=== PATIENT | female | born 1965 | race Caucasian/White ===

== ENCOUNTER 2020-11-27 13:19 | Outpatient (CLI) | payer MEDICARE, SELFPAY ==
[2020-11-27 13:37] LABS: Add Urine Microscopic? NO; Appearance Urine Clear (Clear); Bilirubin Urine Negative (Negative); Blood Urine Negative (Negative); Color Urine Yellow (Yellow); Glucose Urine UA Negative (Negative); Ketones Urine Negative (Negative); Leukocyte Esterase Ur Negative LEU/UL (Negative); Nitrate Urine Negative (Negative); Protein Urine Negative (Negative); Urobilinogen Urine 0.2 mg/dL (0.2-1.0)
== END 2020-11-27 13:20 | disposition home or self-care (01) ==
LOC: CHSLAB 13:25
DX: N39.0 Urinary tract infection, site not specified (principal)
CPT/HCPCS: 81003

== ENCOUNTER 2021-04-10 15:53 | Outpatient (RCR) | payer MEDICARE, OTHER, SELFPAY ==
--- NOTE | 2021-04-10 17:00 | PTOPEVAL ---
Thank you for referring Garima Perry to [facility].? The patient is scheduled to be seen for therapy? ____x/week for ___ weeks. Please review, sign, date and return this plan of care RADHA. I agree with and certify that the following plan of care is medically necessary. Referring Physician Date Admitting Provider: Attending Provider: Olesya Pryor, DI[facility] [employer] DRILLER-DANA Referring Provider: *PT Outpatient Evaluation Start: 04/10/21 16:10 Freq: Status: Active Protocol: Document 04/10/21 16:10 [facility] (Rec: 04/10/21 16:59 [facility] [id number]) Therapy Assessment Status Assessment Status Assessment Status Evaluation Evaluation Information Problem Diagnosis LBP Onset 02/20/21 Additional Evaluation Detail oswestry = 78% functional deficits Subjective Information patient reports she has been Query Text:As Reported By Patient/ having pain in the lower back Family for about 5 years. she reports she had pain management begin about 3 years ago. she reports she had been having increased weakness in the feet /ankles. she reports has been told she has quite a bit of nerve damage in her legs. she reports she has tried PT in the past. she reports she has pain mostly down the L LE, but also in the R LE. she reports she has been told she has DDD of the spine. she reports she has increased pain with walking, standing, sleeping, and lifting. she reports she has had falls in the past. Prior Level of Function Comments Additional Prior Level of Function patient has been battling back Comments issues, LE radiculiopathy for years. she reports history of TIA's. she reports 6 months ago she was able to stand for more than 1 hour, walk longer than 1 mile, and do her own shopping in stores. Pain Assessment Timing of Pain Assessment Timing of Pain Assessment Assessment Pain Scale Pain Scale Used Numeric (1 - 10) Self Report Pain Assessment Lower Back Reported Pain Level 8 Pain Description Sharp,Tingling Pain Radiation Left Leg,Right Leg Greatest Pain Intensity
--- NOTE | 2021-05-27 16:09 | PCPTNOTE ---
patient has not been to therapy in over a month. as of this date, she will be dc'd from skilled PT services and all progress towards goals will be taken from her most recent evaluation/note. HUMBERTO
== END 2021-04-10 16:00 | disposition home or self-care (01) ==
LOC: CHSPT 15:53
PROVIDERS: Visit Provider Nurse Practitioner Adult Health
DX: M54.5 Low back pain (principal)
CPT/HCPCS: 97014; 97110; 97161; G0283

== ENCOUNTER 2021-06-25 09:57 | Outpatient (CLI) | payer MEDICARE, SELFPAY ==
[2021-06-25 13:28] LABS: Add Urine Microscopic? YES; Appearance Urine Clear (Clear); Bilirubin Urine Negative (Negative); Blood Urine Negative (Negative); Color Urine Yellow (Yellow); Glucose Urine UA Negative (Negative); Ketones Urine Trace (Negative); Leukocyte Esterase Ur 1+ LEU/UL (Negative); Nitrate Urine Negative (Negative); Protein Urine Negative (Negative); Urobilinogen Urine 0.2 mg/dL (0.2-1.0); pH Urine 6.5 (5.0-8.0)
[2021-06-25 13:36] LABS: SARS-CoV-2 Ag Negative (Negative)
[2021-06-25 13:38] LABS: Bacteria Urine Trace /hpf; RBC Urine 0-2 /hpf (0-2); Squamous Epithelial Cell Urine Rare /hpf (Few)
== END 2021-06-25 09:58 | disposition home or self-care (01) ==
PROVIDERS: PCP Internal Medicine
DX: N39.0 Urinary tract infection, site not specified (principal); Z20.822 Contact with and (suspected) exposure to COVID-19
CPT/HCPCS: 81001; 87086; 87088; 87426; C9803

== ENCOUNTER 2021-12-23 10:35 | Emergency (ER) | payer OTHER, SELFPAY ==
--- NOTE | ~2021-12-23 | CT_ITS ---
EXAMINATION: CT brain wo con DATE: 12/23/2021 11:09 INDICATION: Left-sided headache with dizziness TECHNIQUE: Computed tomography (CT) of the head was performed without intravenous contrast. Sagittal and coronal reconstructions were performed. The mA was adjusted according to patient size. Iterative reconstruction technique was employed. The dose-length product was 605.33 mGy-cm. COMPARISON: head CT dated 11/30/2007 FINDINGS: No acute intracranial hemorrhage, acute infarction or abnormal extra axial fluid collection. Ventricl es are normal and symmetric. No mass/mass effect. The orbits, paranasal sinuses and mastoid air cells are normal. Corticated heterotopic ossicle at the right frontal scalp. Mild hyperostosis frontalis. IMPRESSION: 1. Normal brain. No acute intracranial process. Reviewed, dictated and finalized at location B.
[2021-12-23 10:35] VITALS: BP 106/60; PULSE 78; RESP 16; TEMP 36.4; O2SAT 100
--- NOTE | 2021-12-23 10:43 | ED.HA ---
HPI - Headache General Chief Complaint: Headache Stated Complaint: ambulance Time Seen by Provider: 12/23/21 10:43 Source: patient History of Present Illness HPI Narrative: 6 with history of hypertension, diabetes mellitus asthma, fibromyalgia, migraine headache, anxiety / depression, Neuropathy with decreased sensation left lower extremity presented to the ER with -- 3 day history of migraine headaches. This is similar to her usual headache which started gradually. Headache is associated with nausea without vomiting. No photophobia /phonophobia. -- Visual hallucinations this started many months ago. For the past few weeks she has been having auditory hallucinations. She has been seen by a psychiatric history and started Seroquel. She had a recent dose increase of Seroquel to 200 mg daily for better control of hallucinations. Today the patient was evicted from her residence. MD elicited complaint: headache and migraine Pertinent past history: migraines Onset (ago): day(s) ( Started 3 days ago) Onset description: gradually Location: left and parietal Severity: moderate Quality & Timing: aching Exacerbating factors: none Relieving factors: nothing Context: occurred at rest Associated symptoms: nausea Treatments prior to arrival: none Related Data Home Medications Medication Instructions Recorded Confirmed Fish Oil 1,200 mg DAILY 12/23/21 12/23/21 amlodipine 50 mg DAILY 12/23/21 12/23/21 aspirin 81 mg DAILY 12/23/21 12/23/21 atorvastatin 20 mg 12/23/21 12/23/21 bupropion HCl 150 mg PO BID 12/23/21 12/23/21 cyclobenzaprine 10 mg TID 12/23/21 12/23/21 duloxetine 120 mg PO DAILY 12/23/21 12/23/21 famotidine 20 mg BID 12/23/21 12/23/21 hydroxyzine pamoate 50 mg TID 12/23/21 12/23/21 icosapent ethyl [Vascepa] 1 g PO BID 12/23/21 12/23/21 metformin 500 mg BID 12/23/21 12/23/21 nystatin 4 ml QID 12/23/21 12/23/21 omeprazole 20 mg DAILY 12/23/21 12/23/21 potassium citrate 30 meq PO BID 12/23/21 12/23/21 prazosin 3 mg HS 12/23/21 12/23/21 propranolol 80 mg PO DAILY 12/23/21 12/23/21 ropinirole 1 mg BID 12/23/21 12/23/21 Allergies Allergy/AdvReac Type Severity Reaction Status Date / Time cephalexin [Keflex] Allergy Intermediate Unknown Verified 12/23/21 11:07 Penicillins Allergy Intermediate Unknown Verified 12/23/21 11:07 Cephalosporins Allergy Mild Unknown Verified 12/23/21 11:07 pregabalin [From Lyrica] Allergy Unknown Verified 12/23/21 11:07 TAPE Allergy Mild Unknown Uncoded 12/23/21 11:07 Review of Systems Review of Systems: All systems reviewed & are unremarkable except as noted in HPI and below Constitutional: Constitutional: Reports as per HPI and Reports no additional constitutional complaints Eyes: Eyes: Reports as per HPI and Reports no additional eye complaints ENT: Reports system reviewed and no additional complaints, except as documented Cardiovascular: Cardiovascular: Reports as per HPI and Reports no additional cardiovascular complaints Respiratory: Respiratory: Reports as per HPI and Reports no additional respiratory complaints Gastrointestinal: Gastrointestinal: Reports as per HPI, Reports no additional gastrointestinal complaints and Reports nausea Genitourinary: Genitourinary: Reports no additional female genitourinary complaints Musculoskeletal: Musculoskeletal: Reports no additional musculoskeletal complaints and Reports as per HPI Integumentary/Breasts: Skin/Breast: Reports system reviewed and no additional complaints, except as docu and Reports as per HPI Neurologic: Reports system reviewed and no additional complaints, except as documented, Reports as per HPI and Reports headache(s) Psychiatric: Psychiatric: Reports anxiety and Reports depression Comments: currently having auditory hallucinations for which she is on Seroquel. Patient denies suicidal or homicidal ideations. Endocrine: Endocrine: Reports no additional endocrine complaints and Reports as per HPI Hematologic/Lymphatic:
[2021-12-23 10:50] LABS: Glucose Point of Care 158 mg/dl (65-105)
[2021-12-23 11:20] LABS: Basophils Absolute Auto 0.06 K/mm3 (0.00-0.10); Basophils Percent Auto 0.9 % (0.0-1.0); Eosinophils Absolute Auto 0.15 K/mm3 (0.02-0.50); Eosinophils Percent Auto 2.2 % (1.0-6.0); Hematocrit 40.4 % (35.0-49.0); Hemoglobin 13.4 g/dL (12.0-15.0); Immature Granulocyte Absolute 0.01 K/mm3 (0.00-0.00); Immature Granulocyte Percent A 0.1 % (0.0-0.0); Lymphocytes Absolute Auto 2.75 K/mm3 (1.10-4.50); Lymphocytes Percent Auto 41.2 % (18.0-42.0); Mean Corpuscular HGB Conc 33.2 g/dL (32.0-36.0); Mean Corpuscular Hemoglobin 30.2 pg (27.0-31.0); Mean Platelet Volume 9.3 fl (9.2-11.8); Monocytes Absolute Auto 0.52 K/mm3 (0.10-0.90); Monocytes Percent Auto 7.8 % (2.0-11.0); Neutrophils Absolute Auto 3.2 K/mm3 (1.7-7.2); Neutrophils Percent Auto 47.8 % (50.0-70.0); Platelet Count Result 279 K/mm3 (150-420); Red Blood Count 4.44 M/mm3 (4.20-5.40); Red Cell Distribution Width 11.4 % (11.6-14.4); White Blood Count 6.7 K/mm3 (4.8-10.8)
[2021-12-23 11:27] LABS: Appearance Urine Clear (Clear); Bilirubin Urine Negative (Negative); Color Urine Light Yellow (Yellow); Glucose Urine UA Negative (Negative); Ketones Urine Negative (Negative); Leukocyte Esterase Ur 2+ (Negative); Nitrate Urine Negative (Negative); Protein Urine Negative (Negative); Urobilinogen Urine 0.2 mg/dL (0.2-1.0)
[2021-12-23 11:32] LABS: Add Urine Microscopic? YES; Blood Urine Trace-Intact (Negative); RBC Urine 0-2 /hpf (0-2); Squamous Epithelial Cell Urine Few /hpf (Few)
[2021-12-23 11:33] LABS: Bacteria Urine Trace /hpf
[2021-12-23] MEDS: KETOROLAC 30 MG/ML VIAL (*BKC) IM (11:36)
[2021-12-23] MEDS: PROCHLORPERAZINE EDISYLATE 10 MG/2 ML VIAL IM (11:39)
[2021-12-23 11:45] LABS: Alanine Aminotransferase 32 U/L (14-59); Albumin Level 3.8 g/dL (3.4-5.0); Alkaline Phosphatase 67 U/L (46-116); Anion Gap 8 mmol/L (8-16); Aspartate Amino Transferase 16 U/L (15-37); Bilirubin,Total 0.2 mg/dL (0.00-1.00); Blood Urea Nitrogen 13 mg/dL (7-18); Calcium 9.2 mg/dL (8.5-10.1); Carbon Dioxide 31 mmol/L (21-32); Chloride 99 mmol/L (98-108); Estimated Glomerular Filt Rate 59; Glucose 132 mg/dL (70-99); Osmolality Calculated 288 mOsm/kg (285-295); Potassium 3.8 mmol/L (3.5-5.1); Sodium 138 mmol/L (136-145); Total Protein 7.2 g/dL (6.4-8.2)
--- NOTE | 2021-12-23 11:50 | ECG_ITS ---
Measurements Intervals [place] Rate: 71 P: 58 DC: 181 QRS: 80 QRSD: 100 T: 56 QT: 431 QTc: 471 Interpretive Statements SINUS RHYTHM NONSPECIFIC T-WAVE ABNORMALITY NO PREVIOUS ECG AVAILABLE FOR COMPARISON Electronically Signed On 12-24-2021 14:18:47 CDT by Edith Lehman M.D.
[2021-12-23 11:51] LABS: Thyroid Stimulating Hormone 1.88 uIU/mL (0.36-3.74)
[2021-12-23 11:58] LABS: Amphetamine Screen Urine Negative (Negative); Barbiturate Screen Urine Negative (Negative); Benzodiazepines Screen Urine Negative (Negative); Cannabinoid Screen Urine Negative (Negative); Cocaine Screen Urine Negative (Negative); Methadone Screen Urine Negative (Negative); Opiate Screen Urine Negative (Negative)
[2021-12-23 12:08] LABS: Acetaminophen < 2 ug/mL (10-30); Ethanol 4 mg/dL (0-6); Salicylate 0.7 mg/dL (2.8-20.0)
[2021-12-23 12:30] VITALS: BP 113/64; PULSE 69; RESP 16; TEMP 36.4; O2SAT 98
[2021-12-23 13:12] LABS: SARS-CoV-2 Ag Negative (Negative)
[2021-12-23 13:38] VITALS: BP 118/62; PULSE 68; RESP 16; TEMP 36.5; O2SAT 98
--- NOTE | 2021-12-23 13:45 | PC.NURSE ---
this patient states she is going home now. states her son at bedside is her only ride and he needs to leave to go back to work. erp speaking with pt.
== END 2021-12-23 13:47 | disposition home or self-care (01) ==
PROVIDERS: Emergency Provider Internal Medicine Critical Care Medicine; PCP Internal Medicine
DX: G43.009 Migraine without aura, not intractable, without status migrainosus (principal); N30.00 Acute cystitis without hematuria; Z20.822 Contact with and (suspected) exposure to COVID-19; E11.9 Type 2 diabetes mellitus without complications; E78.5 Hyperlipidemia, unspecified; I10 Essential (primary) hypertension; Z79.899 Other long term (current) drug therapy
CPT/HCPCS: 36415; 70450; 80053; 80307; 81001; 82948; 84443; 85025; 87426; 93005; 96372; 99284; A9270; C9803; J0780; J1885

== ENCOUNTER 2022-02-02 10:13 | Emergency (ER) | payer OTHER, SELFPAY ==
--- NOTE | ~2022-02-02 | XR_ITS ---
XR chest 1V portable DATE: 02/02/2022 10:55 INDICATION: Chest pain and tightness TECHNIQUE: Portable AP chest on 02/02/2022 at 1037 hours COMPARISON: 01/04/2008 PA and lateral chest FINDINGS: Heart size is normal. Is mild aortic tortuosity. No hilar or mediastinal enlargement. The lungs are clear of infiltrate or consolidation. No pleural effusion or pulmonary vascular congest ion or pneumothorax. Levoscoliosis of the thoracic spine. Osteopenia. IMPRESSION: No active cardiopulmonary disease Reviewed, dictated and finalized at location A.
[2022-02-02 10:21] VITALS: BP 133/92; PULSE 79; RESP 16; TEMP 36.2; O2SAT 98
--- NOTE | 2022-02-02 10:26 | ECG_ITS ---
Measurements Intervals [place] Rate: 77 P: 25 UT: 156 QRS: 49 QRSD: 90 T: 29 QT: 389 QTc: 441 Interpretive Statements SINUS RHYTHM BORDERLINE ST-T WAVE ABNORMALITY- DIFFUSE LEADS BASELINE ARTIFACT- III, AVL, V2 BORDERLINE ECG Electronically Signed On 02-02-2022 13:35:18 CDT by Kilo Salvador D.O.
[2022-02-02] MEDS: IBUPROFEN 400 MG TABLET 800 MG PO (10:44)
[2022-02-02 10:46] LABS: Basophils Absolute Auto 0.05 K/mm3 (0.00-0.10); Basophils Percent Auto 0.5 % (0.0-1.0); Eosinophils Absolute Auto 0.07 K/mm3 (0.02-0.50); Eosinophils Percent Auto 0.7 % (1.0-6.0); Hematocrit 41.2 % (35.0-49.0); Hemoglobin 13.7 g/dL (12.0-15.0); Immature Granulocyte Absolute 0.04 K/mm3 (0.00-0.00); Immature Granulocyte Percent A 0.4 % (0.0-0.0); Lymphocytes Absolute Auto 2.31 K/mm3 (1.10-4.50); Lymphocytes Percent Auto 24.1 % (18.0-42.0); Mean Corpuscular HGB Conc 33.3 g/dL (32.0-36.0); Mean Corpuscular Hemoglobin 30.4 pg (27.0-31.0); Mean Corpuscular Volume 91.6 fL (78.0-102.0); Mean Platelet Volume 10.7 fl (9.2-11.8); Monocytes Absolute Auto 0.57 K/mm3 (0.10-0.90); Monocytes Percent Auto 5.9 % (2.0-11.0); Neutrophils Absolute Auto 6.6 K/mm3 (1.7-7.2); Neutrophils Percent Auto 68.4 % (50.0-70.0); Platelet Count Result 277 K/mm3 (150-420); Red Cell Distribution Width 12.8 % (11.6-14.4); White Blood Count 9.6 K/mm3 (4.8-10.8)
[2022-02-02 10:48] LABS: Add Urine Microscopic? YES; Appearance Urine Clear (Clear); Bilirubin Urine 1+ (Negative); Blood Urine Negative (Negative); Color Urine Yellow (Yellow); Glucose Urine UA Negative (Negative); Ketones Urine 1+ (Negative); Leukocyte Esterase Ur Negative (Negative); Nitrate Urine Negative (Negative); Protein Urine Negative (Negative); Specific Grav Ur 1.015 (1.010-1.020); Urobilinogen Urine 0.2 mg/dL (0.2-1.0); pH Urine 6.5 (5.0-8.0)
[2022-02-02 10:56] LABS: Bacteria Urine 1+ /hpf; RBC Urine 0-2 /hpf (0-2); Squamous Epithelial Cell Urine Few /hpf (Few); WBC Urine 0-3 /hpf (0-3)
[2022-02-02 11:06] LABS: Alanine Aminotransferase 15 U/L (14-59); Albumin Level 4.3 g/dL (3.4-5.0); Alkaline Phosphatase 73 U/L (46-116); Anion Gap 11 mmol/L (8-16); Aspartate Amino Transferase 15 U/L (15-37); Bilirubin,Total 0.8 mg/dL (0.00-1.00); Blood Urea Nitrogen 16 mg/dL (7-18); Calcium 9.3 mg/dL (8.5-10.1); Carbon Dioxide 29 mmol/L (21-32); Chloride 96 mmol/L (98-108); Estimated Glomerular Filt Rate 52; Glucose 143 mg/dL (70-99); Osmolality Calculated 285 mOsm/kg (285-295); Potassium 3.9 mmol/L (3.5-5.1); Sodium 136 mmol/L (136-145); Total Protein 8.2 g/dL (6.4-8.2)
[2022-02-02 11:13] LABS: Troponin I 746.9 ng/L (0.00-60.4)
[2022-02-02] MEDS: SODIUM CHLORIDE 0.9% IV 500 ML 999 ML IV CONT (11:29)
[2022-02-02] MEDS: ONDANSETRON INJ 4 MG/2 ML VIAL IV PUSH (11:30)
[2022-02-02] MEDS: MORPHINE SULFATE (*CRX) 2 MG/ML INJ IV PUSH (11:31)
[2022-02-02] MEDS: NITROGLYCERIN SL 0.4 MG TABLET SUBLINGUAL (11:33)
[2022-02-02 11:42] VITALS: PULSE 83; RESP 12; O2SAT 98
[2022-02-02 11:45] VITALS: PULSE 89; RESP 20; O2SAT 100
[2022-02-02 11:46] VITALS: BP 131/101; PULSE 94; RESP 18; O2SAT 100
[2022-02-02 11:58] LABS: INR 1.1; Prothrombin Time 11.4 Seconds (9.50-12.10)
[2022-02-02] MEDS: HEPARIN SODIUM 5,000 UNITS/ML VIAL 3500 UNITS IV PUSH (12:23)
[2022-02-02] MEDS: HEPARIN SOD/D5W 100 UNITS/ML 25,000 UNITS/250 ML BAG 7 UNITS IV CONT (12:24)
--- NOTE | 2022-02-02 12:32 | ED.BACK ---
HPI - Back Pain/Injury General Chief Complaint: Back Pain/Injury Stated Complaint: ambulance Time Seen by Provider: 02/02/22 10:16 Source: patient, EMS and RN notes reviewed Mode of arrival: EMS Limitations: no limitations History of Present Illness HPI Narrative: back pain radiating to left chest. MD elicited complaint: back pain Pertinent past history: prior back pain Onset (ago): day(s) (1) Timing: constant Severity: mild Pain scale (0-10): 4 Similar Symptoms Previously: Yes Quality: dull and aching Radiation: abdomen and chest Exacerbating factors: none Relieving factors: none Associated symptoms: increased urinary urgency, increased urinary frequency and dysuria Work related injury: No Related Data Home Medications Medication Instructions Recorded Confirmed Fish Oil 1,200 mg DAILY 12/23/21 02/02/22 amlodipine 5 mg tablet 50 mg DAILY 12/23/21 02/02/22 aspirin 81 mg DAILY 12/23/21 02/02/22 atorvastatin 20 mg tablet 20 mg HS 12/23/21 02/02/22 bupropion HCl 150 mg tablet,12 hr 150 mg PO BID 12/23/21 02/02/22 sustained-release cyclobenzaprine 10 mg tablet 10 mg TID 12/23/21 02/02/22 duloxetine 60 mg capsule,delayed 120 mg PO DAILY 12/23/21 02/02/22 release famotidine 20 mg tablet 20 mg BID 12/23/21 02/02/22 hydroxyzine pamoate 50 mg capsule 50 mg TID 12/23/21 02/02/22 icosapent ethyl 1 gram capsule 1 g PO BID 12/23/21 02/02/22 (Vascepa) metformin 500 mg tablet 500 mg BID 12/23/21 02/02/22 nystatin 100,000 unit/mL oral 4 ml QID 12/23/21 02/02/22 suspension omeprazole 20 mg capsule,delayed 20 mg DAILY 12/23/21 02/02/22 release potassium citrate 15 mEq (1,620 30 meq PO BID 12/23/21 02/02/22 mg) tablet,extended release prazosin 1 mg capsule 3 mg HS 12/23/21 02/02/22 propranolol 80 mg capsule,24 80 mg PO DAILY 12/23/21 02/02/22 hr,extended release ropinirole 1 mg tablet 1 mg BID 12/23/21 02/02/22 Allergies Allergy/AdvReac Type Severity Reaction Status Date / Time cephalexin [Keflex] Allergy Intermediate Unknown Verified 02/02/22 10:25 Penicillins Allergy Intermediate Unknown Verified 02/02/22 10:25 Cephalosporins Allergy Mild Unknown Verified 02/02/22 10:25 pregabalin [From Lyrica] Allergy Unknown Verified 02/02/22 10:25 sulfamethoxazole Allergy rash Verified 02/02/22 10:25 [From Bactrim] trimethoprim [From Bactrim] Allergy rash Verified 02/02/22 10:25 TAPE Allergy Mild Unknown Uncoded 02/02/22 10:25 Review of Systems Review of Systems: All systems reviewed & are unremarkable except as noted in HPI and below Constitutional: Constitutional: Reports no additional constitutional complaints Eyes: Eyes: Reports no additional eye complaints ENT: Reports system reviewed and no additional complaints, except as documented Cardiovascular: Cardiovascular: Reports no additional cardiovascular complaints Respiratory: Respiratory: Reports no additional respiratory complaints Gastrointestinal: Gastrointestinal: Reports no additional gastrointestinal complaints Genitourinary: Genitourinary: Reports no additional female genitourinary complaints Musculoskeletal: Musculoskeletal: Reports no additional musculoskeletal complaints Integumentary/Breasts: Skin/Breast: Reports system reviewed and no additional complaints, except as docu Neurologic: Reports system reviewed and no additional complaints, except as documented Psychiatric: Psychiatric: Reports no additional psychiatric complaints Endocrine: Endocrine: Reports no additional endocrine complaints Hematologic/Lymphatic: Hematologic/Lymphatic: Reports no additional hematologic/lymphatic complaints Allergic/Immunologic: Allergic/Immunologic: Reports no additional allergic/immunologic complaints PMFSH Past Medical History Medical History Asthma Diabetes mellitus Dyslipidemia Fibromyalgia Hypertension Non-ST elevated myocardial infarction UTI (urinary tract infection) Family Hi
[2022-02-02 12:52] VITALS: PULSE 89
[2022-02-02] MEDS: METOPROLOL TARTRATE INJ 5 MG/5 ML VIAL 2.5 MG IV PUSH (12:52)
--- NOTE | 2022-02-02 13:08 | PC.NURSE ---
patient originally called ems for chest pain, upon ems arrival ekg and 324 asprin administred, ekg sent to [facility] and declaired not a STEMI. EMS states that after ekg was finished patient denied any chest pain or sob and stated that she called because her back hurt and thought it was dur to her UTI she was recently teated for. upon arrival RN asked patient about chest pain and she denied any chest or sob stating it was her bilateral lower back that hurt and thought it was a UTI. after Troponin results came back and ERP went into room to speak with patient she stated she has chest pain on and off for the past several days that radiates into her back and down her left arm. patient then stated that her chest pain was starting to return. patient was adnimistred nitro and morphine and states the pain was relieved. patient's director of land is dr Mccord at [facility] in [facility]. director of land non destructive testing inspector contacted, patient to be transfered to [facility].
[2022-02-02 13:23] VITALS: BP 146/89; PULSE 81; RESP 15; TEMP 36.4; O2SAT 100
== END 2022-02-02 13:27 | disposition short-term general hospital (02) ==
PROVIDERS: Emergency Provider Emergency Medicine; PCP Internal Medicine
DX: I21.4 Non-ST elevation (NSTEMI) myocardial infarction (principal); N39.0 Urinary tract infection, site not specified
CPT/HCPCS: 36415; 71045; 80053; 81001; 83605; 84484; 85025; 85610; 85730; 93005; 96361; 96365; 96375; 99285; A9270; J1644; J2270; J2405; J7040

== ENCOUNTER 2022-03-10 07:54 | Outpatient (CLI) | payer OTHER, SELFPAY ==
[2022-03-10 08:10] LABS: Basophils Absolute Auto 0.05 K/mm3 (0.00-0.10); Basophils Percent Auto 0.6 % (0.0-1.0); Eosinophils Absolute Auto 0.13 K/mm3 (0.02-0.50); Eosinophils Percent Auto 1.7 % (1.0-6.0); Hematocrit 37.3 % (35.0-49.0); Hemoglobin 12.3 g/dL (12.0-15.0); Immature Granulocyte Absolute 0.03 K/mm3 (0.00-0.00); Immature Granulocyte Percent A 0.4 % (0.0-0.0); Lymphocytes Absolute Auto 2.81 K/mm3 (1.10-4.50); Lymphocytes Percent Auto 36.1 % (18.0-42.0); Mean Corpuscular Hemoglobin 31.2 pg (27.0-31.0); Mean Corpuscular Volume 94.7 fL (78.0-102.0); Mean Platelet Volume 9.6 fl (9.2-11.8); Monocytes Absolute Auto 0.48 K/mm3 (0.10-0.90); Monocytes Percent Auto 6.2 % (2.0-11.0); Neutrophils Absolute Auto 4.3 K/mm3 (1.7-7.2); Platelet Count Result 242 K/mm3 (150-420); Red Blood Count 3.94 M/mm3 (4.20-5.40); Red Cell Distribution Width 13.9 % (11.6-14.4); White Blood Count 7.8 K/mm3 (4.8-10.8)
[2022-03-10 08:23] LABS: Alanine Aminotransferase 25 U/L (14-59); Albumin Level 3.8 g/dL (3.4-5.0); Alkaline Phosphatase 61 U/L (46-116); Anion Gap 7 mmol/L (8-16); Aspartate Amino Transferase 12 U/L (15-37); Bilirubin,Total 0.3 mg/dL (0.00-1.00); Blood Urea Nitrogen 19 mg/dL (7-18); Calcium 9.2 mg/dL (8.5-10.1); Carbon Dioxide 28 mmol/L (21-32); Chloride 103 mmol/L (98-108); Cholesterol 115 mg/dL (0-200); Estimated Glomerular Filt Rate 46; Glucose 151 mg/dL (70-99); HDL Direct 49 mg/dL (40-60); LDL Cholesterol Calculated 32 mg/dL (<130); Osmolality Calculated 291 mOsm/kg (285-295); Potassium 4.9 mmol/L (3.5-5.1); Sodium 138 mmol/L (136-145); Total Protein 7.2 g/dL (6.4-8.2); Triglycerides 169 mg/dL (0-150)
[2022-03-10 08:50] LABS: Hemoglobin A1C 6.4 % (<5.7)
== END 2022-03-10 07:55 | disposition home or self-care (01) ==
LOC: CHSLAB 07:59
PROVIDERS: PCP Internal Medicine
DX: Z79.899 Other long term (current) drug therapy (principal); F33.1 Major depressive disorder, recurrent, moderate
CPT/HCPCS: 36415; 80053; 80061; 83036; 85025

== ENCOUNTER 2022-03-11 21:18 | Emergency (ER) | payer OTHER, SELFPAY ==
--- NOTE | ~2022-03-11 | CT_ITS ---
EXAMINATION: CT brain wo con DATE: 03/11/2022 22:31 INDICATION: occipital PANDYA with dizziness/confusion today . TECHNIQUE: Computed tomography (CT) of the head was performed without intravenous contrast. The mA wa s adjusted according to patient size. Iterative reconstruction technique was employed. The dose-lengt h product was 605.33 mGy-cm. COMPARISON: 12/23/2021. FINDINGS: No acute intracranial hemorrhage or extra-axial fluid collection. No hydrocephalus, mass, or herniation. No acute ischemic infarct. Unremarkable dural venous sinus attenuation. No acute osseous abnormality. The aerated spaces are clear. IMPRESSION: No acute intracranial process. Reviewed, dictated and finalized at location K.
--- NOTE | ~2022-03-11 | XR_ITS ---
EXAMINATION: XR chest 1V portable Exam Date/Time: 03/11/2022 21:48 CDT HISTORY: central chest pain/tightness with weakness Comparison: 02/02/2022. RESULT: Lines, tubes, and devices: None. Lungs and pleura: Clear. Cardiomediastinal silhouette: Stable cardiomediastinal silhouette. Other: No acute osseous or upper abdominal finding. IMPRESSION: No acute cardiopulmonary process. Reviewed, dictated and finalized at location K.
--- NOTE | 2022-03-11 21:26 | ECG_ITS ---
Measurements Intervals [place] Rate: 77 P: 53 [place]: 213 QRS: 68 QRSD: 83 T: 34 QT: 376 QTc: 426 Interpretive Statements SINUS RHYTHM WITH FIRST DEGREE AV BLOCK BASELINE ARTIFACT NONSPECIFIC ST ABNORMALITY BORDERLINE ECG COMPARED TO ECG 02/02/2022 10:46:27 FIRST DEGREE AV BLOCK NOW PRESENT Electronically Signed On 03-12-2022 15:05:44 CDT by Feliberto Cameron M.D.
[2022-03-11 21:28] VITALS: BP 133/81; PULSE 75; RESP 16; TEMP 36.4; O2SAT 98
[2022-03-11] MEDS: ASPIRIN 325 MG ENTERIC TABLET PO (22:09)
[2022-03-11 22:13] LABS: Basophils Absolute Auto 0.05 K/mm3 (0.00-0.10); Basophils Percent Auto 0.5 % (0.0-1.0); Eosinophils Absolute Auto 0.14 K/mm3 (0.02-0.50); Eosinophils Percent Auto 1.4 % (1.0-6.0); Hemoglobin 11.8 g/dL (12.0-15.0); Immature Granulocyte Absolute 0.03 K/mm3 (0.00-0.00); Immature Granulocyte Percent A 0.3 % (0.0-0.0); Lymphocytes Absolute Auto 3.93 K/mm3 (1.10-4.50); Lymphocytes Percent Auto 39.7 % (18.0-42.0); Mean Corpuscular HGB Conc 33.7 g/dL (32.0-36.0); Mean Corpuscular Hemoglobin 31.5 pg (27.0-31.0); Mean Corpuscular Volume 93.3 fL (78.0-102.0); Monocytes Absolute Auto 0.66 K/mm3 (0.10-0.90); Monocytes Percent Auto 6.7 % (2.0-11.0); Neutrophils Absolute Auto 5.1 K/mm3 (1.7-7.2); Neutrophils Percent Auto 51.4 % (50.0-70.0); Platelet Count Result 254 K/mm3 (150-420); Red Blood Count 3.75 M/mm3 (4.20-5.40); Red Cell Distribution Width 13.6 % (11.6-14.4); White Blood Count 9.9 K/mm3 (4.8-10.8)
[2022-03-11 22:28] LABS: Alanine Aminotransferase 25 U/L (14-59); Albumin Level 3.6 g/dL (3.4-5.0); Alkaline Phosphatase 58 U/L (46-116); Anion Gap 6 mmol/L (8-16); Aspartate Amino Transferase 10 U/L (15-37); Bilirubin,Total 0.3 mg/dL (0.00-1.00); Blood Urea Nitrogen 18 mg/dL (7-18); Calcium 9.3 mg/dL (8.5-10.1); Carbon Dioxide 29 mmol/L (21-32); Chloride 101 mmol/L (98-108); Estimated Glomerular Filt Rate > 60; Glucose 114 mg/dL (70-99); Osmolality Calculated 284 mOsm/kg (285-295); Potassium 4.1 mmol/L (3.5-5.1); Sodium 136 mmol/L (136-145); Total Protein 6.9 g/dL (6.4-8.2)
[2022-03-11 22:29] LABS: Add Urine Microscopic? YES; Appearance Urine Clear (Clear); Bilirubin Urine Negative (Negative); Blood Urine Negative (Negative); Color Urine Light Yellow (Yellow); Glucose Urine UA Negative (Negative); Ketones Urine Negative (Negative); Leukocyte Esterase Ur 1+ (Negative); Nitrate Urine Negative (Negative); Protein Urine Negative (Negative); Specific Grav Ur 1.015 (1.010-1.020); Urobilinogen Urine 0.2 mg/dL (0.2-1.0)
[2022-03-11 22:35] LABS: Bacteria Urine Trace /hpf; RBC Urine 0-2 /hpf (0-2); Squamous Epithelial Cell Urine Few /hpf (Few); WBC Urine 0-3 /hpf (0-3)
[2022-03-11] MEDS: NITROGLYCERIN SL 0.4 MG TABLET SUBLINGUAL (22:36)
[2022-03-11] MEDS: ACETAMINOPHEN 325 MG TABLET 650 MG PO (22:36)
[2022-03-11] MEDS: NITROGLYCERIN SL 0.4 MG TABLET 0.8 MG (22:57)
[2022-03-12 00:02] LABS: Troponin I 4.7 ng/L (0.00-60.4)
--- NOTE | 2022-03-12 00:40 | ED.CHESTPAIN ---
HPI - Chest Pain General Chief Complaint: Chest Pain Stated Complaint: AMB Time Seen by Provider: 03/11/22 21:22 Source: patient and RN notes reviewed Limitations: no limitations History of Present Illness MD complaint: chest pain Onset (ago): day(s) (1) Timing of current episode: constant Prior episodes: Yes Onset: during rest Pain location: left chest Severity: mild Pain scale (0-10): 5 Quality: aching and heaviness Relieving factors: nothing Exacerbating factors: exertion Associated symptoms: nausea Treatment prior to arrival: none Related Data Home Medications Medication Instructions Recorded Confirmed Fish Oil 1,200 mg DAILY 12/23/21 03/11/22 amlodipine 5 mg tablet 50 mg DAILY 12/23/21 03/11/22 aspirin 81 mg DAILY 12/23/21 03/11/22 atorvastatin 20 mg tablet 20 mg HS 12/23/21 03/11/22 bupropion HCl 150 mg tablet,12 hr 150 mg PO BID 12/23/21 03/11/22 sustained-release cyclobenzaprine 10 mg tablet 10 mg TID 12/23/21 03/11/22 duloxetine 60 mg capsule,delayed 120 mg PO DAILY 12/23/21 03/11/22 release famotidine 20 mg tablet 20 mg BID 12/23/21 03/11/22 hydroxyzine pamoate 50 mg capsule 50 mg TID 12/23/21 03/11/22 icosapent ethyl 1 gram capsule 1 g PO BID 12/23/21 03/11/22 (Vascepa) metformin 500 mg tablet 500 mg BID 12/23/21 03/11/22 nystatin 100,000 unit/mL oral 4 ml QID 12/23/21 03/11/22 suspension omeprazole 20 mg capsule,delayed 20 mg DAILY 12/23/21 03/11/22 release potassium citrate 15 mEq (1,620 30 meq PO BID 12/23/21 03/11/22 mg) tablet,extended release prazosin 1 mg capsule 3 mg HS 12/23/21 03/11/22 propranolol 80 mg capsule,24 80 mg PO DAILY 12/23/21 03/11/22 hr,extended release ropinirole 1 mg tablet 1 mg BID 12/23/21 03/11/22 Allergies Allergy/AdvReac Type Severity Reaction Status Date / Time cephalexin [Keflex] Allergy Intermediate Unknown Verified 03/11/22 21:32 Penicillins Allergy Intermediate Unknown Verified 03/11/22 21:32 Cephalosporins Allergy Mild Unknown Verified 03/11/22 21:32 pregabalin [From Lyrica] Allergy Unknown Verified 03/11/22 21:32 sulfamethoxazole Allergy rash Verified 03/11/22 21:32 [From Bactrim] trimethoprim [From Bactrim] Allergy rash Verified 03/11/22 21:32 TAPE Allergy Mild Unknown Uncoded 03/11/22 21:32 Review of Systems Review of Systems: All systems reviewed & are unremarkable except as noted in HPI and below Constitutional: Constitutional: Reports no additional constitutional complaints Eyes: Eyes: Reports no additional eye complaints ENT: Reports system reviewed and no additional complaints, except as documented Cardiovascular: Cardiovascular: Reports no additional cardiovascular complaints Comments: chest pain Respiratory: Respiratory: Reports no additional respiratory complaints Gastrointestinal: Gastrointestinal: Reports no additional gastrointestinal complaints Genitourinary: Genitourinary: Reports no additional female genitourinary complaints Musculoskeletal: Musculoskeletal: Reports no additional musculoskeletal complaints Integumentary/Breasts: Skin/Breast: Reports system reviewed and no additional complaints, except as docu Neurologic: Reports system reviewed and no additional complaints, except as documented Psychiatric: Psychiatric: Reports no additional psychiatric complaints Endocrine: Endocrine: Reports no additional endocrine complaints Hematologic/Lymphatic: Hematologic/Lymphatic: Reports no additional hematologic/lymphatic complaints Allergic/Immunologic: Allergic/Immunologic: Reports no additional allergic/immunologic complaints PMFSH Past Medical History Medical History Asthma Chest pain at rest Diabetes mellitus Dyslipidemia Fibromyalgia Hypertension Non-ST elevated myocardial infarction UTI (urinary tract infection) Family History Family History Other Family history of pancreatic cancer
[2022-03-12] MEDS: LORazepam (*CRX) 0.5 MG TABLET 0.25 MG PO (01:00)
[2022-03-12 01:04] VITALS: BP 134/88; PULSE 66; RESP 16; O2SAT 99
== END 2022-03-12 01:05 | disposition home or self-care (01) ==
PROVIDERS: Emergency Provider Emergency Medicine; PCP Internal Medicine
DX: R07.89 Other chest pain (principal); N39.0 Urinary tract infection, site not specified
CPT/HCPCS: 36415; 70450; 71045; 80053; 81001; 84484; 85025; 93005; 96365; 99284; A9270; J0696

== ENCOUNTER 2022-05-09 13:44 | Emergency (ER) | payer OTHER, SELFPAY ==
--- NOTE | 2022-05-09 13:50 | ED.PSYCH ---
HPI - Psych General Chief Complaint: Psychiatric Symptoms Stated Complaint: was wanting to see structural ironworker Time Seen by Provider: 05/09/22 13:49 Source: patient Mode of arrival: ambulatory Limitations: no limitations History of Present Illness HPI Narrative: 56-year-old female with a history of hypertension, fibromyalgia, hypertension, coronary artery disease / non STEMI, migraine, neuropathy with decreased sensation on the left side, anxiety/ depression was brought in to the ER by her son and the direction of the [facility] structural ironworker. The patient is -- delusional. She is wanting to someone who is a and has a . -- she feels she is being controlled by her neighbors. She feels that she is being observed by TV and telephones installed in a house. patient denied any suicidal or homicidal ideation. Onset (ago): day(s) Relieving factors: none Exacerbating factors: none Associated psychiatric symptoms: depression Associated symptoms: denies other symptoms Treatments prior to arrival: none Related Data Home Medications Medication Instructions Recorded Confirmed Fish Oil 1,200 mg DAILY 12/23/21 05/09/22 amlodipine 5 mg tablet 50 mg DAILY 12/23/21 05/09/22 aspirin 81 mg DAILY 12/23/21 05/09/22 atorvastatin 20 mg tablet 20 mg HS 12/23/21 05/09/22 bupropion HCl 150 mg tablet,12 hr 150 mg PO BID 12/23/21 05/09/22 sustained-release cyclobenzaprine 10 mg tablet 10 mg TID 12/23/21 05/09/22 duloxetine 60 mg capsule,delayed 120 mg PO DAILY 12/23/21 05/09/22 release famotidine 20 mg tablet 20 mg BID 12/23/21 05/09/22 hydroxyzine pamoate 50 mg capsule 50 mg TID 12/23/21 05/09/22 icosapent ethyl 1 gram capsule 1 g PO BID 12/23/21 05/09/22 (Vascepa) metformin 500 mg tablet 500 mg BID 12/23/21 05/09/22 nystatin 100,000 unit/mL oral 4 ml QID 12/23/21 05/09/22 suspension omeprazole 20 mg capsule,delayed 20 mg DAILY 12/23/21 05/09/22 release potassium citrate 15 mEq (1,620 30 meq PO BID 12/23/21 05/09/22 mg) tablet,extended release prazosin 1 mg capsule 3 mg HS 12/23/21 05/09/22 propranolol 80 mg capsule,24 80 mg PO DAILY 12/23/21 05/09/22 hr,extended release ropinirole 1 mg tablet 1 mg BID 12/23/21 05/09/22 Allergies Allergy/AdvReac Type Severity Reaction Status Date / Time cephalexin [Keflex] Allergy Intermediate Unknown Verified 05/09/22 15:04 Penicillins Allergy Intermediate Unknown Verified 05/09/22 15:04 Cephalosporins Allergy Mild Unknown Verified 05/09/22 15:04 pregabalin [From Lyrica] Allergy Unknown Verified 05/09/22 15:04 sulfamethoxazole Allergy rash Verified 05/09/22 15:04 [From Bactrim] trimethoprim [From Bactrim] Allergy rash Verified 05/09/22 15:04 TAPE Allergy Mild Unknown Uncoded 05/09/22 15:04 Review of Systems Review of Systems: All systems reviewed & are unremarkable except as noted in HPI and below Constitutional: Constitutional: Reports as per HPI and Reports no additional constitutional complaints Eyes: Eyes: Reports as per HPI and Reports no additional eye complaints ENT: Reports system reviewed and no additional complaints, except as documented and Reports as per HPI Cardiovascular: Cardiovascular: Reports as per HPI and Reports no additional cardiovascular complaints Respiratory: Respiratory: Reports as per HPI and Reports no additional respiratory complaints Gastrointestinal: Gastrointestinal: Reports as per HPI and Reports no additional gastrointestinal complaints Genitourinary: Genitourinary: Reports no additional female genitourinary complaints Musculoskeletal: Musculoskeletal: Reports no additional musculoskeletal complaints and Reports as per HPI Integumentary/Breasts: Skin/Breast: Reports system reviewed and no additional complaints, except as docu and Reports as per HPI Neurologic: Reports system reviewed and no additional complaints, except as documented and Reports as per HPI Psychiatric: Psychiatric: Reports no additional psychiatric com
[2022-05-09 14:20] VITALS: BP 118/70; PULSE 86; RESP 20; TEMP 36.4; O2SAT 95
[2022-05-09 14:35] LABS: Basophils Absolute Auto 0.04 K/mm3 (0.00-0.10); Basophils Percent Auto 0.5 % (0.0-1.0); Eosinophils Absolute Auto 0.09 K/mm3 (0.02-0.50); Eosinophils Percent Auto 1.2 % (1.0-6.0); Hematocrit 36.6 % (35.0-49.0); Hemoglobin 12.7 g/dL (12.0-15.0); Immature Granulocyte Absolute 0.02 K/mm3 (0.00-0.00); Immature Granulocyte Percent A 0.3 % (0.0-0.0); Lymphocytes Absolute Auto 3.38 K/mm3 (1.10-4.50); Lymphocytes Percent Auto 44.4 % (18.0-42.0); Mean Corpuscular HGB Conc 34.7 g/dL (32.0-36.0); Mean Corpuscular Hemoglobin 32.8 pg (27.0-31.0); Mean Corpuscular Volume 94.6 fL (78.0-102.0); Mean Platelet Volume 10.2 fl (9.2-11.8); Monocytes Absolute Auto 0.62 K/mm3 (0.10-0.90); Monocytes Percent Auto 8.1 % (2.0-11.0); Neutrophils Absolute Auto 3.5 K/mm3 (1.7-7.2); Neutrophils Percent Auto 45.5 % (50.0-70.0); Platelet Count Result 230 K/mm3 (150-420); Red Blood Count 3.87 M/mm3 (4.20-5.40); Red Cell Distribution Width 11.9 % (11.6-14.4); White Blood Count 7.6 K/mm3 (4.8-10.8)
[2022-05-09 14:36] LABS: Add Urine Microscopic? YES; Appearance Urine Clear (Clear); Bilirubin Urine Negative (Negative); Blood Urine Negative (Negative); Color Urine Light Yellow (Yellow); Glucose Urine UA Negative (Negative); Ketones Urine Negative (Negative); Leukocyte Esterase Ur 1+ LEU/UL (Negative); Nitrate Urine Negative (Negative); Protein Urine Negative (Negative); Urobilinogen Urine 0.2 mg/dL (0.2-1.0)
[2022-05-09 14:46] LABS: RBC Urine None seen /hpf (0-2); Squamous Epithelial Cell Urine Rare /hpf (Few)
[2022-05-09 14:47] LABS: Bacteria Urine Trace /hpf
[2022-05-09 14:57] LABS: Amphetamine Screen Urine Negative (Negative); Barbiturate Screen Urine Negative (Negative); Benzodiazepines Screen Urine Positive (Negative); Cannabinoid Screen Urine Negative (Negative); Cocaine Screen Urine Negative (Negative); Methadone Screen Urine Negative (Negative); Opiate Screen Urine Negative (Negative); Phencyclidine Screen Urine Negative (Negative)
[2022-05-09 15:02] LABS: Acetaminophen 0 ug/mL (10-30); Alanine Aminotransferase 24 U/L (14-59); Albumin Level 4.4 g/dL (3.4-5.0); Alkaline Phosphatase 62 U/L (46-116); Anion Gap 9 mmol/L (8-16); Aspartate Amino Transferase 13 U/L (15-37); Bilirubin,Total 0.3 mg/dL (0.00-1.00); Blood Urea Nitrogen 22 mg/dL (7-18); Calcium 9.5 mg/dL (8.5-10.1); Carbon Dioxide 28 mmol/L (21-32); Chloride 99 mmol/L (98-108); Estimated CRCL calculation 40 ml/min; Estimated Glomerular Filt Rate 52; Ethanol < 3 mg/dL (0-6); Glucose 129 mg/dL (70-99); Osmolality Calculated 287 mOsm/kg (285-295); Potassium 3.8 mmol/L (3.5-5.1); Salicylate 2.1 mg/dL (2.8-20.0); Sodium 136 mmol/L (136-145); Thyroid Stimulating Hormone 0.94 uIU/mL (0.36-3.74); Total Protein 7.6 g/dL (6.4-8.2)
[2022-05-09 15:20] LABS: SARS-CoV-2 RNA PCR Negative (Negative)
[2022-05-09] MEDS: LACTATED RINGERS 1,000 ML 999 ML IV CONT (16:08)
--- NOTE | 2022-05-09 16:49 | PC.NURSE ---
[facility] speaking with pt [facility] faxing paper work to [facility] STATES THEY HAVE BEDS WILL WAIT FOR ACCEPTANCE 1700 PT WALKED TO BATHROOM AND STATES SHE DOES NOT WANT TO GO TO HOSPITAL AND CAN SHE REFUSE PT IS NOT SUICIDAL OR [facility] CALL AND SAID THEY CAN NOT HOLD HER 1705 AWAITING SON TO CALL TO INFORM HIM OF CHANGES
--- NOTE | 2022-05-09 17:16 | ECG_ITS ---
Measurements Intervals [place] Rate: 69 P: 38 MT: 192 QRS: 61 QRSD: 91 T: 29 QT: 408 QTc: 440 Interpretive Statements SINUS RHYTHM NONSPECIFIC T-WAVE ABNORMALITY COMPARED TO ECG 03/11/2022 21:38:56 T-WAVE ABNORMALITY NOW PRESENT Electronically Signed On 05-10-2022 13:44:22 CDT by Edith Lehman M.D.
--- NOTE | 2022-05-09 17:18 | PC.NURSE ---
1715 SPOKE WITH SON HE IS COMING TO GET HER
--- NOTE | 2022-05-09 17:38 | PC.NURSE ---
1730 SPOKE WITH [facility] AND CHART WAS FAXED SPOKE WITH HER SON TOLD HER HE WOULD COME FOR HER SHE DID GO BACK TO HER ROOM
--- NOTE | 2022-05-09 18:10 | PC.NURSE ---
1810 PT RESTING QUIETLY IN ROOM STATES SHE WILL WAIT FOR HER SON TO GET HERE
--- NOTE | 2022-05-09 18:56 | PC.NURSE ---
1854 spoke with [facility] and pt has not been accepted 1899 Alex vigil called to come back to help with psych admission
[2022-05-09] MEDS: QUEtiapine FUMARATE 100 MG TABLET PO (19:38)
--- NOTE | 2022-05-14 12:48 | PC.NURSE ---
final urine culture results no growth
== END 2022-05-09 19:43 | disposition home or self-care (01) ==
PROVIDERS: Emergency Provider Internal Medicine Critical Care Medicine; PCP Internal Medicine
DX: F29 Unspecified psychosis not due to a substance or known physiological condition (principal); F20.9 Schizophrenia, unspecified; Z20.822 Contact with and (suspected) exposure to COVID-19; E11.9 Type 2 diabetes mellitus without complications; E78.5 Hyperlipidemia, unspecified; I10 Essential (primary) hypertension; Z79.899 Other long term (current) drug therapy
CPT/HCPCS: 36415; 80053; 80307; 81001; 84443; 85025; 87086; 93005; 96360; 99284; A9270; C9803; J7120; U0003; U0005

== ENCOUNTER 2022-06-04 11:49 | Outpatient (CLI) | payer OTHER, SELFPAY ==
[2022-06-04 12:22] LABS: Appearance Urine Clear (Clear); Basophils Absolute Auto 0.06 K/mm3 (0.00-0.10); Basophils Percent Auto 0.9 % (0.0-1.0); Bilirubin Urine Negative (Negative); Color Urine Light Yellow (Yellow); Eosinophils Absolute Auto 0.19 K/mm3 (0.02-0.50); Eosinophils Percent Auto 2.8 % (1.0-6.0); Glucose Urine UA Negative (Negative); Hematocrit 35.7 % (35.0-49.0); Hemoglobin 11.9 g/dL (12.0-15.0); Immature Granulocyte Absolute 0.03 K/mm3 (0.00-0.00); Immature Granulocyte Percent A 0.4 % (0.0-0.0); Ketones Urine Negative (Negative); Leukocyte Esterase Ur Negative (Negative); Lymphocytes Absolute Auto 2.71 K/mm3 (1.10-4.50); Lymphocytes Percent Auto 40.4 % (18.0-42.0); Mean Corpuscular HGB Conc 33.3 g/dL (32.0-36.0); Mean Corpuscular Hemoglobin 32.3 pg (27.0-31.0); Mean Platelet Volume 9.9 fl (9.2-11.8); Monocytes Absolute Auto 0.54 K/mm3 (0.10-0.90); Monocytes Percent Auto 8.1 % (2.0-11.0); Neutrophils Absolute Auto 3.2 K/mm3 (1.7-7.2); Neutrophils Percent Auto 47.4 % (50.0-70.0); Nitrate Urine Negative (Negative); Platelet Count Result 231 K/mm3 (150-420); Protein Urine Negative (Negative); Red Blood Count 3.68 M/mm3 (4.20-5.40); Red Cell Distribution Width 12.6 % (11.6-14.4); Specific Grav Ur <= 1.005 (1.010-1.020); Urobilinogen Urine 0.2 mg/dL (0.2-1.0); White Blood Count 6.7 K/mm3 (4.8-10.8)
[2022-06-04 12:26] LABS: Add Urine Microscopic? YES; Bacteria Urine None seen /hpf; Blood Urine Trace-Intact (Negative); RBC Urine None seen /hpf (0-2); Squamous Epithelial Cell Urine Rare /hpf (Few); WBC Urine None seen /hpf (0-3)
[2022-06-04 12:36] LABS: D Dimer 0.36 mg/L (0.19-0.50)
[2022-06-04 12:45] LABS: Alanine Aminotransferase 67 U/L (14-59); Albumin Level 3.8 g/dL (3.4-5.0); Alkaline Phosphatase 60 U/L (46-116); Anion Gap 7 mmol/L (8-16); Aspartate Amino Transferase 47 U/L (15-37); Bilirubin,Total 0.2 mg/dL (0.00-1.00); Blood Urea Nitrogen 17 mg/dL (7-18); Carbon Dioxide 26 mmol/L (21-32); Chloride 103 mmol/L (98-108); Estimated Glomerular Filt Rate > 60; Glucose 103 mg/dL (70-99); NT Pro B Type Natriuretic Pept 74 pg/mL (0-125); Osmolality Calculated 283 mOsm/kg (285-295); Potassium 4.1 mmol/L (3.5-5.1); Sodium 136 mmol/L (136-145)
== END 2022-06-04 11:50 | disposition home or self-care (01) ==
LOC: CHSLAB 12:02
PROVIDERS: PCP Internal Medicine; Visit Provider Internal Medicine
DX: R60.9 Edema, unspecified (principal); M79.661 Pain in right lower leg; M79.662 Pain in left lower leg; I21.4 Non-ST elevation (NSTEMI) myocardial infarction; I50.9 Heart failure, unspecified
CPT/HCPCS: 36415; 80053; 81001; 83880; 85025; 85380

== ENCOUNTER 2022-11-06 10:45 | Observation (INO) | payer OTHER, SELFPAY ==
[2022-11-06] VITALS (7 sets, daily range): BP systolic 122–159; BP diastolic 85–93; PULSE 68–80; RESP 15–18; TEMP 36.2–36.8; O2SAT 95–98; BMI 26.4
--- NOTE | ~2022-11-06 | XR_ITS ---
EXAMINATION: XR chest 1V portable DATE: 11/06/2022 11:34 INDICATION: Confusion. TECHNIQUE: A single frontal view of the chest was obtained. COMPARISON: Chest single view 03/11/2022, CT abdomen and pelvis 06/07/2018 FINDINGS: The chest demonstrates clear lungs without pneumonia, pleural effusion, or pneumothorax. Th e heart size is normal. Surgical clips in the right upper quadrant are likely from cholecystectomy. IMPRESSION: 1. No acute cardiopulmonary disease. Reviewed, dictated and finalized at location A. VITIES MANAGER
--- NOTE | ~2022-11-06 | CT_ITS ---
EXAMINATION: CT brain wo con DATE: 11/06/2022 11:34 INDICATION: Confusion. Altered mental status. TECHNIQUE: Computed tomography (CT) of the head was performed without intravenous contrast. The mA wa s adjusted according to patient size. Iterative reconstruction technique was employed. The dose-lengt h product was 605.33 mGy-cm. COMPARISON: Head CT 03/11/2022 FINDINGS: There is no intracranial hemorrhage, acute infarction, or abnormal intracranial mass lesion . The ventricles are normal in size. The orbits are normal. The paranasal sinuses are clear. There is a trace left mastoid effusion. 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 IMPRESSION: 1. Normal brain. Reviewed, dictated and finalized at location A. ING AND PRIMING TOOL SETTER IMPRESSION: 1. Normal brain.
--- NOTE | 2022-11-06 10:56 | ECG_ITS ---
Measurements Intervals [place] Rate: 79 P: 33 WV: 159 QRS: 65 QRSD: 98 T: 17 QT: 402 QTc: 461 Interpretive Statements SINUS RHYTHM NONSPECIFIC T-WAVE ABNORMALITY COMPARED TO ECG 05/09/2022 17:28:05 NO SIGNIFICANT CHANGES Electronically Signed On 11-06-2022 20:15:51 VOLTAGE TESTER by Edith Lehman M.D.
--- NOTE | 2022-11-06 11:16 | PC.NURSE ---
Pt able to talk, very slow to answer questions, can move all extremities but very slowly.
[2022-11-06 11:25] LABS: Basophils Absolute Auto 0.04 K/mm3 (0.00-0.10); Basophils Percent Auto 0.5 % (0.0-1.0); Eosinophils Absolute Auto 0.04 K/mm3 (0.02-0.50); Eosinophils Percent Auto 0.5 % (1.0-6.0); Hematocrit 39.4 % (35.0-49.0); Hemoglobin 13.7 g/dL (12.0-15.0); Immature Granulocyte Absolute 0.01 K/mm3 (0.00-0.00); Immature Granulocyte Percent A 0.1 % (0.0-0.0); Lymphocytes Absolute Auto 2.89 K/mm3 (1.10-4.50); Lymphocytes Percent Auto 34.9 % (18.0-42.0); Mean Corpuscular HGB Conc 34.8 g/dL (32.0-36.0); Mean Corpuscular Hemoglobin 32.3 pg (27.0-31.0); Mean Corpuscular Volume 92.9 fL (78.0-102.0); Mean Platelet Volume 9.5 fl (9.2-11.8); Monocytes Absolute Auto 0.52 K/mm3 (0.10-0.90); Monocytes Percent Auto 6.3 % (2.0-11.0); Neutrophils Absolute Auto 4.8 K/mm3 (1.7-7.2); Neutrophils Percent Auto 57.7 % (50.0-70.0); Platelet Count Result 275 K/mm3 (150-420); Red Blood Count 4.24 M/mm3 (4.20-5.40); Red Cell Distribution Width 12.6 % (11.6-14.4); White Blood Count 8.3 K/mm3 (4.8-10.8)
--- NOTE | 2022-11-06 11:29 | PC.NURSE ---
Pt is also very weak at this time, arrived on stretcher via EMS with just a T-shirt, robe, socks, and house shoes, no underwear or bottoms on.
[2022-11-06 11:34] LABS: INR 1.1; Partial Thromboplastin Time 25.6 SEC (23.90-30.70); Prothrombin Time 11.9 Seconds (9.50-12.10)
[2022-11-06 11:37] LABS: Alanine Aminotransferase 23 U/L (14-59); Albumin Level 4.3 g/dL (3.4-5.0); Alkaline Phosphatase 67 U/L (46-116); Anion Gap 15 mmol/L (8-16); Aspartate Amino Transferase 16 U/L (15-37); Bilirubin,Total 0.8 mg/dL (0.00-1.00); Blood Urea Nitrogen 22 mg/dL (7-18); Calcium 8.9 mg/dL (8.5-10.1); Carbon Dioxide 21 mmol/L (21-32); Chloride 92 mmol/L (98-108); Estimated CRCL calculation 47 ml/min; Estimated Glomerular Filt Rate 58; Glucose 144 mg/dL (70-99); Osmolality Calculated 272 mOsm/kg (285-295); Potassium 3.7 mmol/L (3.5-5.1); Sodium 128 mmol/L (136-145); Total Protein 8.1 g/dL (6.4-8.2); Troponin I 4.6 ng/L (0.00-60.4)
[2022-11-06] MEDS: SODIUM CHLORIDE 0.9% IV 1,000 ML 999 ML IV CONT (11:37)
[2022-11-06 11:38] LABS: CRP < 0.5 mg/dL (0.0-0.9)
[2022-11-06 12:21] LABS: Add Urine Microscopic? YES; Appearance Urine Clear (Clear); Bilirubin Urine 1+ (Negative); Blood Urine Negative (Negative); Color Urine Light Yellow (Yellow); Glucose Urine UA Negative (Negative); Ketones Urine 2+ (Negative); Leukocyte Esterase Ur Negative LEU/UL (Negative); Nitrate Urine Negative (Negative); Protein Urine Negative (Negative); Specific Grav Ur >= 1.030 (1.010-1.020); Urobilinogen Urine 0.2 mg/dL (0.2-1.0); pH Urine 5.5 (5.0-8.0)
[2022-11-06 12:26] LABS: Amphetamine Screen Urine Negative (Negative); Barbiturate Screen Urine Negative (Negative); Benzodiazepines Screen Urine Negative (Negative); Cannabinoid Screen Urine Negative (Negative); Cocaine Screen Urine Negative (Negative); Methadone Screen Urine Negative (Negative); Opiate Screen Urine Negative (Negative); Phencyclidine Screen Urine Negative (Negative)
[2022-11-06 12:27] LABS: RBC Urine 0-2 /hpf (0-2); WBC Urine 0-3 /hpf (0-3)
[2022-11-06 12:28] LABS: Bacteria Urine None seen /hpf; Squamous Epithelial Cell Urine Rare /hpf (Few)
--- NOTE | 2022-11-06 12:46 | PC.NURSE ---
Pt was unable to void earlier so was straight cath for urine sample. Pt stating she needs to void now, pt weak and unsteady, placed on bedpan.
[2022-11-06 12:55] LABS: Ammonia < 10 umol/L (11-32)
--- NOTE | 2022-11-06 13:02 | PC.NURSE ---
Pt's son is Gonzalo Perry, phone number [phone] and pt states it is okay to keep him updated.
--- NOTE | 2022-11-06 13:04 | ED.AMS ---
HPI - Altered Mental Status General Chief Complaint: Altered Mental Status Stated Complaint: altered LOC Time Seen by Provider: 11/06/22 10:56 Source: patient and EMS Mode of arrival: EMS Limitations: no limitations History of Present Illness HPI narrative: this is a 49 year female with some history of diabetes hypertension and depression presents via EMS with altered mental status, the patient had a normal glucose level of 147 by EMS in is slow to respond but does respond appropriately to questions and follows commands, neurologically intact with no neurological deficit. Patient apparently was served with eviction notice from her apartment and this morning developed altered mental status. Otherwise there is no fever chills her vitals are stable denies any chest pain or shortness of breath no abdominal pain no dysuria. Currently there is no nausea vomiting no flank pain. MD complaint: altered mental status Onset (ago): hour(s) Timing confirmed by: family member Severity: moderate Related Data Home Medications Medication Instructions Recorded Confirmed Fish Oil 1,200 mg DAILY 12/23/21 11/06/22 amlodipine 5 mg tablet 50 mg DAILY 12/23/21 11/06/22 aspirin 81 mg DAILY 12/23/21 11/06/22 atorvastatin 20 mg tablet 20 mg HS 12/23/21 11/06/22 bupropion HCl 150 mg tablet,12 hr 150 mg PO BID 12/23/21 11/06/22 sustained-release cyclobenzaprine 10 mg tablet 10 mg TID 12/23/21 11/06/22 duloxetine 60 mg capsule,delayed 120 mg PO DAILY 12/23/21 11/06/22 release famotidine 20 mg tablet 20 mg BID 12/23/21 11/06/22 hydroxyzine pamoate 50 mg capsule 50 mg TID 12/23/21 11/06/22 icosapent ethyl 1 gram capsule 1 g PO BID 12/23/21 11/06/22 (Vascepa) metformin 500 mg tablet 500 mg BID 12/23/21 11/06/22 nystatin 100,000 unit/mL oral 4 ml QID 12/23/21 11/06/22 suspension omeprazole 20 mg capsule,delayed 20 mg DAILY 12/23/21 11/06/22 release potassium citrate 15 mEq (1,620 30 meq PO BID 12/23/21 11/06/22 mg) tablet,extended release prazosin 1 mg capsule 3 mg HS 12/23/21 11/06/22 propranolol 80 mg capsule,24 80 mg PO DAILY 12/23/21 11/06/22 hr,extended release ropinirole 1 mg tablet 1 mg BID 12/23/21 11/06/22 Allergies Allergy/AdvReac Type Severity Reaction Status Date / Time cephalexin [Keflex] Allergy Intermediate Unknown Verified 11/06/22 11:08 Penicillins Allergy Intermediate Unknown Verified 11/06/22 11:08 Cephalosporins Allergy Mild Unknown Verified 11/06/22 11:08 pregabalin [From Lyrica] Allergy Unknown Verified 11/06/22 11:08 sulfamethoxazole Allergy rash Verified 11/06/22 11:08 [From Bactrim] trimethoprim [From Bactrim] Allergy rash Verified 11/06/22 11:08 TAPE Allergy Mild Unknown Uncoded 11/06/22 11:08 Review of Systems Review of Systems: All systems reviewed & are unremarkable except as noted in HPI and below PMFSH Past Medical History Medical History Asthma Chest pain at rest Diabetes mellitus Dyslipidemia Fibromyalgia Hypertension Non-ST elevated myocardial infarction UTI (urinary tract infection) Family History Family History Other Family history of pancreatic cancer Exam Const: General: no acute distress Nutritional Appearance: obese Limitations: no limitations HENMT: Head: normal to inspection Face/Nose/Sinus: Normal external nose present Face and sinus: normal facial exam Eyes: Conjunctivae: conjunctivae normal Pupils: Equal, round and reactive pupils present EOM: EOMs intact bilaterally Direct Ophthalmoscopy: no photophobia Neck: Neck: normal visual inspection, no lymphadenopathy and no meningeal signs Chest: Chest palpation & inspection: normal inspection of the chest Resp: Effort & Inspection: normal respiratory effort Cardio: Rate: regular rate Rhythm: regular rhythm GI: GI Palp: Yes Soft to palpation Auscultation: normal bowel sounds : General: Ye
--- NOTE | 2022-11-06 13:11 | PC.NURSE ---
Called [facility] about admitting this pt, no answer, left a message.
--- NOTE | 2022-11-06 13:26 | PC.NURSE ---
Son would like case management to look for a chcf for pt, states she is unable to care for herself at this time.
--- NOTE | 2022-11-06 13:29 | PC.NURSE ---
[facility] called back and is talking to Dr. Holbrook about admit.
--- NOTE | 2022-11-06 13:33 | PC.NURSE ---
Pt will be admitted to room 210.
--- NOTE | 2022-11-06 13:41 | PC.NURSE ---
Pt more alert at this time, asking for a alin mist to drink, talking now with little difficulty. Son called again about talking to case management about declaring pt mentally incompetent to make her own decisions, he was given their phone number to discuss this.
--- NOTE | 2022-11-06 13:44 | PC.NURSE ---
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
--- NOTE | 2022-11-06 14:10 | ADMGEN ---
This patient, Garima Perry, was admitted to 2nd Floor Room 226-2. Patient/family oriented to hospital policies and general routines including ID bracelet, bed and alarms, visiting hours, pain management, procedures, bathroom and other care routines, personal items, smoking policy, room service/diet, and visiting hours. Information on how to activate the Rapid Response Team has been discussed. Patient/Family are encouraged to report perceived risks to care and to ask questions if they do not understand what they are told or what they should do.
[2022-11-06] MEDS: buPROPion HCL SR (12HR) 100 MG TABCR PO (18:00)
[2022-11-06] MEDS: metFORMIN HCL 500 MG TABLET BY MOUTH (18:00)
[2022-11-06] MEDS: rOPINIRole HCL 1 MG TABLET BY MOUTH (18:00)
[2022-11-06] MEDS: ZOLPIDEM TARTRATE (*CRX) 5 MG TABLET 10 MG PO (20:17)
[2022-11-06] MEDS: ATORVASTATIN 10 MG TABLET 20 MG BY MOUTH (20:17)
[2022-11-06] MEDS: LACOSAMIDE (*CRX) 50 MG TABLET 100 MG PO (20:17)
[2022-11-06] MEDS: OLANZapine 5 MG TABLET 20 MG PO (20:17)
[2022-11-07 05:21] LABS: Hematocrit 38.7 % (35.0-49.0); Hemoglobin 13.1 g/dL (12.0-15.0); Mean Corpuscular HGB Conc 33.9 g/dL (32.0-36.0); Mean Corpuscular Hemoglobin 31.5 pg (27.0-31.0); Mean Platelet Volume 9.7 fl (9.2-11.8); Platelet Count Result 259 K/mm3 (150-420); Red Blood Count 4.16 M/mm3 (4.20-5.40); Red Cell Distribution Width 12.6 % (11.6-14.4); White Blood Count 9.9 K/mm3 (4.8-10.8)
[2022-11-07 05:32] LABS: Anion Gap 15 mmol/L (8-16); Blood Urea Nitrogen 15 mg/dL (7-18); Calcium 8.6 mg/dL (8.5-10.1); Carbon Dioxide 21 mmol/L (21-32); Chloride 95 mmol/L (98-108); Estimated CRCL calculation 57 ml/min; Estimated Glomerular Filt Rate > 60; Glucose 108 mg/dL (70-99); Osmolality Calculated 273 mOsm/kg (285-295); Sodium 131 mmol/L (136-145)
[2022-11-07 07:50] VITALS: BP 132/73; PULSE 100; RESP 18; TEMP 36.4; O2SAT 97
--- NOTE | 2022-11-07 08:35 | PM.SD2 ---
Same Day Admit/Disch: HPI History of Present Illness Chief complaint: HYPONATREMIA AMS Narrative: Garima Perry is a 57 year old female HPI narrative: ?this is a 49 year female with some history of diabetes hypertension and depression presents via EMS with altered mental status, the patient had a normal glucose level of 147 by EMS in is slow to respond but does respond appropriately to questions and follows commands, neurologically intact with no neurological deficit.? Patient apparently was served with eviction notice from her apartment and this morning developed altered mental status.? Otherwise there is no fever chills her vitals are stable denies any chest pain or shortness of breath no abdominal pain no dysuria.? Currently there is no nausea vomiting no flank pain. MD complaint: altered mental status PMFSH Past Medical History Medical History Asthma Chest pain at rest Diabetes mellitus Dyslipidemia Fibromyalgia Hypertension Non-ST elevated myocardial infarction UTI (urinary tract infection) Family History Family History Other Family history of pancreatic cancer Social History Social History Smoking status: Never smoker Alcohol intake: never Substance use: never Substance use type: does not use Lack of Transportation: No Lack of Food: Sometimes True Current Housing: I Have Housing Concerned About Future Housing: YES Difficulty Paying Gas/Electric Bills: YES Difficulty Paying for Meds: YES Currently Unemployed: No Education: High School Diploma/GED Difficulty w/ Childcare or Family Care: No Spiritual care concerns: No Same Day Admit/Disch: Med Pre-admit Medications Home Medications Medication Instructions Recorded Confirmed Type amlodipine 5 mg tablet 5 mg DAILY 12/23/21 11/10/22 History aspirin 81 mg DAILY 12/23/21 11/10/22 History atorvastatin 20 mg tablet 20 mg HS 12/23/21 11/10/22 History cyclobenzaprine 10 mg tablet 10 mg TID PRN Back Pain 12/23/21 11/10/22 History icosapent ethyl 1 gram capsule 1 g PO BID 12/23/21 11/10/22 History (Vascepa) metformin 500 mg tablet 500 mg BIDWM 12/23/21 11/10/22 History omeprazole 20 mg capsule,delayed 20 mg DAILY 12/23/21 11/10/22 History release potassium citrate 15 mEq (1,620 30 meq PO BIDWM 12/23/21 11/10/22 History mg) tablet,extended release propranolol 80 mg capsule,24 80 mg PO DAILY 12/23/21 11/10/22 History hr,extended release ropinirole 1 mg tablet 1 mg BID 12/23/21 11/10/22 History Vimpat 100 mg PO BID 11/06/22 11/10/22 History albuterol sulfate 90 mcg/actuation 2 inh inhalation Q4H PRN Shortness 11/06/22 11/10/22 History aerosol inhaler Of Breath Or Wheezing alprazolam 1 mg tablet 1 mg PO QID 11/06/22 11/10/22 History bupropion HCl 100 mg tablet,12 hr 100 mg PO TID 11/06/22 11/10/22 History sustained-release olanzapine 20 mg tablet 20 mg PO HS 11/06/22 11/10/22 History ondansetron HCl 4 mg tablet 4 mg PO Q6H PRN Nausea And Vomiting 11/06/22 11/10/22 History valacyclovir 500 mg tablet 500 mg PO BID PRN Outbreak 11/06/22 11/10/22 History zolpidem 10 mg tablet 10 mg PO HS 11/06/22 11/10/22 History Exam Narrative: GENERAL:Well-appearing, well-nourished, and in no acute distress. HEAD:Normocephalic, atraumatic. EYES: PERRLA and EOMI. ENT: Nares clear, no rhinorrhea or epistaxis. Mucous membranes moist. CHEST: Clear to auscultation. No respiratory distress. HEART: Regular rate and rhythm. No murmur heard. Normal peripheral pulses. ABDOMEN: Soft, nontender, nondistended, hyperactive active bowel sounds. EXTREMITIES: Normal range of motion. No edema. SKIN: Warm, dry, no rash. NEURO: No focal deficits. Alert and oriented x3. DS: Data Data Completed and Pending Labs on day of discharge: Labs from last 24 hours 11/07/22 11/07/22 11/06/22
[2022-11-07] MEDS: buPROPion HCL SR (12HR) 100 MG TABCR PO ×2 (09:15→13:12)
[2022-11-07] MEDS: metFORMIN HCL 500 MG TABLET BY MOUTH (09:15)
[2022-11-07] MEDS: LACOSAMIDE (*CRX) 50 MG TABLET 100 MG PO (09:15)
[2022-11-07] MEDS: ASPIRIN 81 MG ENTERIC TABLET PO (09:15)
[2022-11-07] MEDS: PANTOPRAZOLE 40 MG TABLET PO (09:16)
[2022-11-07] MEDS: PROPRANOLOL 80 MG BY MOUTH (09:16)
[2022-11-07] MEDS: rOPINIRole HCL 1 MG TABLET BY MOUTH (09:16)
[2022-11-07] MEDS: amLODIPine BESYLATE 5 MG TABLET PO (09:16)
[2022-11-07] MEDS: [UNRECOGNIZED DRUG - OTHER] BY MOUTH (09:16)
[2022-11-07] MEDS: OMEGA 3 POLYUNSAT FATTY ACIDS 1 GM CAP PO (09:16)
--- NOTE | 2022-11-07 16:00 | PC.NURSE ---
Went into patients room with MAURISIO Clayton. Matilde explained to pt that pt had been discharged since 10 am and needed to be leaving soon. Pt began to make excuses about not having a ride or a place to go. I explained to the patient that she was medically stable and discharged so she needed to leave the building by 1630 or we would have to consider her a trespasser. Pt stated she understood and would try to find a ride.
--- NOTE | 2022-11-07 16:25 | PC.NURSE ---
Entered pt room where she had dressed herself. Reviewed discharge instructions with the patient. Pt had no questions regarding discharge. Pt stated she did not have a coat and I reminded her that she had a fluffy robe that would keep her warm as well.
--- NOTE | 2022-11-07 16:35 | PC.NURSE ---
Entered pts room to escort down for discharge. Pt on the phone with [employer] attempting to obtain transportation.
--- NOTE | 2022-11-07 16:50 | PC.NURSE ---
Pt escorted to the front of hospital for discharge.
--- NOTE | 2022-11-11 12:56 | PC.NURSE ---
Unable to contact for discharge call back.
== END 2022-11-07 16:50 | disposition home or self-care (01) ==
LOC: CHSED 13:30 → CHS2ND 13:37
PROVIDERS: Nurse Practitioner Family; Admitting Provider Internal Medicine; Emergency Provider Emergency Medicine; Visit Provider Internal Medicine
DX: E87.1 Hypo-osmolality and hyponatremia (principal); I10 Essential (primary) hypertension; I25.2 Old myocardial infarction; E11.9 Type 2 diabetes mellitus without complications; E78.5 Hyperlipidemia, unspecified; M79.7 Fibromyalgia; F32.A Depression, unspecified; Z79.82 Long term (current) use of aspirin
CPT/HCPCS: 36415; 70450; 71045; 80048; 80053; 80307; 81001; 82140; 83605; 84484; 85025; 85027; 85610; 85730; 86140; 93005; 96360; 99285; A9270; G0378; J7030

== ENCOUNTER 2022-11-10 14:45 | Emergency (ER) | payer OTHER, SELFPAY ==
[2022-11-10 14:45] VITALS: BP 135/96; BP 139/90; PULSE 100; RESP 14; RESP 16; TEMP 36.8; O2SAT 96; O2SAT 97
[2022-11-10 15:04] VITALS: BP 135/96; PULSE 100; RESP 16; TEMP 36.8; O2SAT 96
--- NOTE | 2022-11-10 15:04 | ED.NAVMDI ---
HPI - Nausea/Vomiting/Diarrhea General Chief complaint: Nausea/Vomiting/Diarrhea Stated complaint: nausea, vomiting, diarrhea Source: patient Mode of arrival: EMS Limitations: no limitations History of Present Illness HPI Narrative: 57-year-old female with a history of psychosis, hypertension, Diabetes mellitus, CAD/non-STEMI, fibromyalgia, migraine, neuropathy was admitted from 11/06/20192022 for altered mental status and hyponatremia. She presents to the ER with -- nausea/vomiting / diarrhea for the past few days. No fever. No abdominal pain. She has had 2 episodes of vomiting this morning and no episodes of diarrhea today. -- decreased oral intake -- Intermittent headache she denied any visual hallucinations or delusions. MD elicited complaint: nausea, vomiting and diarrhea Pertinent past history: anorexia Onset (ago): day(s) Description of vomiting: watery Description of diarrhea: watery Associated nausea: Yes Associated abdominal pain: No Location of pain: none Exacerbating factors: none Relieving factors: none Related Data Home Medications Medication Instructions Recorded Confirmed amlodipine 5 mg tablet 5 mg DAILY 12/23/21 11/10/22 aspirin 81 mg DAILY 12/23/21 11/10/22 atorvastatin 20 mg tablet 20 mg HS 12/23/21 11/10/22 cyclobenzaprine 10 mg tablet 10 mg TID PRN Back Pain 12/23/21 11/10/22 icosapent ethyl 1 gram capsule 1 g PO BID 12/23/21 11/10/22 (Vascepa) metformin 500 mg tablet 500 mg BIDWM 12/23/21 11/10/22 omeprazole 20 mg capsule,delayed 20 mg DAILY 12/23/21 11/10/22 release potassium citrate 15 mEq (1,620 30 meq PO BIDWM 12/23/21 11/10/22 mg) tablet,extended release propranolol 80 mg capsule,24 80 mg PO DAILY 12/23/21 11/10/22 hr,extended release ropinirole 1 mg tablet 1 mg BID 12/23/21 11/10/22 Vimpat 100 mg PO BID 11/06/22 11/10/22 albuterol sulfate 90 mcg/actuation 2 inh inhalation Q4H PRN Shortness 11/06/22 11/10/22 aerosol inhaler Of Breath Or Wheezing alprazolam 1 mg tablet 1 mg PO QID 11/06/22 11/10/22 bupropion HCl 100 mg tablet,12 hr 100 mg PO TID 11/06/22 11/10/22 sustained-release olanzapine 20 mg tablet 20 mg PO HS 11/06/22 11/10/22 ondansetron HCl 4 mg tablet 4 mg PO Q6H PRN Nausea And Vomiting 11/06/22 11/10/22 valacyclovir 500 mg tablet 500 mg PO BID PRN Outbreak 11/06/22 11/10/22 zolpidem 10 mg tablet 10 mg PO HS 11/06/22 11/10/22 Allergies Allergy/AdvReac Type Severity Reaction Status Date / Time cephalexin [Keflex] Allergy Intermediate Unknown Verified 11/10/22 15:00 Penicillins Allergy Intermediate Unknown Verified 11/10/22 15:00 Cephalosporins Allergy Mild Unknown Verified 11/10/22 15:00 pregabalin [From Lyrica] Allergy Unknown Verified 11/10/22 15:00 sulfamethoxazole Allergy rash Verified 11/10/22 15:00 [From Bactrim] trimethoprim [From Bactrim] Allergy rash Verified 11/10/22 15:00 TAPE Allergy Mild Unknown Uncoded 11/06/22 11:08 Review of Systems Review of Systems: All systems reviewed & are unremarkable except as noted in HPI and below Constitutional: Constitutional: Reports as per HPI and Reports no additional constitutional complaints Eyes: Eyes: Reports as per HPI and Reports no additional eye complaints ENT: Reports system reviewed and no additional complaints, except as documented and Reports as per HPI Cardiovascular: Cardiovascular: Reports as per HPI and Reports no additional cardiovascular complaints Respiratory: Respiratory: Reports as per HPI and Reports no additional respiratory complaints Gastrointestinal: Gastrointestinal: Reports as per HPI, Reports no additional gastrointestinal complaints, Reports diarrhea, Reports nausea and Reports vomiting Genitourinary: Genitourinary: Reports no additional female genitourinary complaints Musculoskeletal: Musculoskeletal: Reports no additional musculoskeletal complaints and Reports as per HPI Integumentary/Breasts: Skin/Breast: Reports system reviewed and no additional complaints, exce
[2022-11-10 15:36] LABS: Basophils Absolute Auto 0.05 K/mm3 (0.00-0.10); Basophils Percent Auto 0.5 % (0.0-1.0); Eosinophils Absolute Auto 0.01 K/mm3 (0.02-0.50); Eosinophils Percent Auto 0.1 % (1.0-6.0); Hematocrit 38.2 % (35.0-49.0); Hemoglobin 13.2 g/dL (12.0-15.0); Immature Granulocyte Absolute 0.03 K/mm3 (0.00-0.00); Immature Granulocyte Percent A 0.3 % (0.0-0.0); Lymphocytes Absolute Auto 2.94 K/mm3 (1.10-4.50); Lymphocytes Percent Auto 30.4 % (18.0-42.0); Mean Corpuscular HGB Conc 34.6 g/dL (32.0-36.0); Mean Corpuscular Hemoglobin 31.9 pg (27.0-31.0); Mean Corpuscular Volume 92.3 fL (78.0-102.0); Mean Platelet Volume 9.9 fl (9.2-11.8); Monocytes Absolute Auto 0.64 K/mm3 (0.10-0.90); Monocytes Percent Auto 6.6 % (2.0-11.0); Neutrophils Percent Auto 62.1 % (50.0-70.0); Platelet Count Result 294 K/mm3 (150-420); Red Blood Count 4.14 M/mm3 (4.20-5.40); Red Cell Distribution Width 13.2 % (11.6-14.4); White Blood Count 9.7 K/mm3 (4.8-10.8)
[2022-11-10 15:50] LABS: Partial Thromboplastin Time 25.1 SEC (23.90-30.70)
[2022-11-10 15:57] LABS: Lactic Acid Reflex 1.4 mmol/L (0.4-2.0)
[2022-11-10 16:00] LABS: Alanine Aminotransferase 19 U/L (14-59); Albumin Level 3.9 g/dL (3.4-5.0); Alkaline Phosphatase 62 U/L (46-116); Anion Gap 16 mmol/L (8-16); Aspartate Amino Transferase 15 U/L (15-37); Bilirubin,Total 0.6 mg/dL (0.00-1.00); Blood Urea Nitrogen 15 mg/dL (7-18); Calcium 8.7 mg/dL (8.5-10.1); Carbon Dioxide 20 mmol/L (21-32); Chloride 102 mmol/L (98-108); Estimated CRCL calculation 59 ml/min; Estimated Glomerular Filt Rate > 60; Glucose 128 mg/dL (70-99); Lipase 50 U/L (16-77); Osmolality Calculated 288 mOsm/kg (285-295); Potassium 3.6 mmol/L (3.5-5.1); Sodium 138 mmol/L (136-145); Thyroid Stimulating Hormone 0.96 uIU/mL (0.36-3.74); Total Protein 7.8 g/dL (6.4-8.2); Troponin I 8.6 ng/L (0.00-60.4)
[2022-11-10 16:05] LABS: Add Urine Microscopic? YES; Appearance Urine Clear (Clear); Bilirubin Urine 2+ (Negative); Blood Urine Trace-Intact (Negative); Color Urine Yellow (Yellow); Glucose Urine UA Negative (Negative); Ketones Urine 3+ (Negative); Leukocyte Esterase Ur Negative LEU/UL (Negative); Nitrate Urine Negative (Negative); Protein Urine 1+ (Negative); Specific Grav Ur >= 1.030 (1.010-1.020); Urobilinogen Urine 0.2 mg/dL (0.2-1.0)
[2022-11-10 16:07] LABS: RBC Urine 0-2 /hpf (0-2); Squamous Epithelial Cell Urine Few /hpf (Few); WBC Urine None seen /hpf (0-3)
[2022-11-10 16:08] LABS: Bacteria Urine Trace /hpf
[2022-11-10 16:17] VITALS: RESP 16; TEMP 36.6
[2022-11-10 16:25] VITALS: BP 144/87; PULSE 87; RESP 16; O2SAT 96
== END 2022-11-10 16:18 | disposition home or self-care (01) ==
PROVIDERS: Emergency Provider Internal Medicine Critical Care Medicine; PCP Internal Medicine
DX: K52.9 Noninfective gastroenteritis and colitis, unspecified (principal); E11.9 Type 2 diabetes mellitus without complications; I10 Essential (primary) hypertension; I25.10 Atherosclerotic heart disease of native coronary artery without angina pectoris; I25.2 Old myocardial infarction; Z79.82 Long term (current) use of aspirin; Z79.84 Long term (current) use of oral hypoglycemic drugs; Z79.899 Other long term (current) drug therapy
CPT/HCPCS: 36415; 80053; 81001; 83605; 83690; 84443; 84484; 85025; 85730; 99284

== ENCOUNTER 2022-11-25 13:13 | Outpatient (CLI) | payer OTHER, SELFPAY ==
[2022-11-25 13:38] LABS: Appearance Urine Clear (Clear); Basophils Absolute Auto 0.05 K/mm3 (0.00-0.10); Basophils Percent Auto 0.6 % (0.0-1.0); Bilirubin Urine Negative (Negative); Blood Urine Negative (Negative); Color Urine Light Yellow (Yellow); Eosinophils Absolute Auto 0.04 K/mm3 (0.02-0.50); Eosinophils Percent Auto 0.5 % (1.0-6.0); Glucose Urine UA Negative (Negative); Hematocrit 41.2 % (35.0-49.0); Hemoglobin 13.6 g/dL (12.0-15.0); Immature Granulocyte Absolute 0.02 K/mm3 (0.00-0.00); Immature Granulocyte Percent A 0.2 % (0.0-0.0); Ketones Urine Negative (Negative); Leukocyte Esterase Ur 1+ LEU/UL (Negative); Lymphocytes Absolute Auto 3.31 K/mm3 (1.10-4.50); Lymphocytes Percent Auto 41.3 % (18.0-42.0); Mean Corpuscular Hemoglobin 31.3 pg (27.0-31.0); Mean Corpuscular Volume 94.9 fL (78.0-102.0); Monocytes Absolute Auto 0.52 K/mm3 (0.10-0.90); Monocytes Percent Auto 6.5 % (2.0-11.0); Neutrophils Absolute Auto 4.1 K/mm3 (1.7-7.2); Neutrophils Percent Auto 50.9 % (50.0-70.0); Nitrate Urine Negative (Negative); Platelet Count Result 311 K/mm3 (150-420); Protein Urine Negative (Negative); Red Blood Count 4.34 M/mm3 (4.20-5.40); Red Cell Distribution Width 12.8 % (11.6-14.4); Urobilinogen Urine 0.2 mg/dL (0.2-1.0)
[2022-11-25 13:42] LABS: Add Urine Microscopic? YES; Bacteria Urine 1+ /hpf; RBC Urine None seen /hpf (0-2); Squamous Epithelial Cell Urine Few /hpf (Few)
[2022-11-25 13:51] LABS: Creatinine Urine 170.88 mg/dL (40-278); MALB Creatinine Ratio 8.8 mg/g (0-30); Microalbumin Urine Random 15.2 mg/L
[2022-11-25 13:57] LABS: Hemoglobin A1C 6.5 % (<5.7)
[2022-11-25 14:41] LABS: Alanine Aminotransferase 30 U/L (14-59); Albumin Level 4.2 g/dL (3.4-5.0); Alkaline Phosphatase 68 U/L (46-116); Anion Gap 9 mmol/L (8-16); Aspartate Amino Transferase 18 U/L (15-37); Bilirubin,Total 0.5 mg/dL (0.00-1.00); Blood Urea Nitrogen 8 mg/dL (7-18); Calcium 7.7 mg/dL (8.5-10.1); Carbon Dioxide 31 mmol/L (21-32); Chloride 97 mmol/L (98-108); Estimated Glomerular Filt Rate 44; Glucose 128 mg/dL (70-99); Osmolality Calculated 284 mOsm/kg (285-295); Potassium 4.5 mmol/L (3.5-5.1); Sodium 137 mmol/L (136-145); Thyroid Stimulating Hormone 0.92 uIU/mL (0.36-3.74); Total Protein 7.6 g/dL (6.4-8.2); Vitamin B12 616 pg/mL (193-986)
[2022-11-27 14:57] LABS: RPR Screen Non-Reactive (Non-Reactive)
== END 2022-11-25 13:14 | disposition home or self-care (01) ==
LOC: CHSLAB 13:16
PROVIDERS: PCP Internal Medicine; Visit Provider Internal Medicine
DX: K52.9 Noninfective gastroenteritis and colitis, unspecified (principal); E11.9 Type 2 diabetes mellitus without complications; R26.81 Unsteadiness on feet; R82.90 Unspecified abnormal findings in urine
CPT/HCPCS: 36415; 80053; 81001; 82043; 82607; 83036; 84443; 85025; 86592; 87086; 87088

== ENCOUNTER 2023-01-12 14:09 | Outpatient (CLI) | payer OTHER, SELFPAY ==
[2023-01-12 14:50] LABS: Anion Gap 8 mmol/L (8-16); Blood Urea Nitrogen 12 mg/dL (7-18); Calcium 9.8 mg/dL (8.5-10.1); Carbon Dioxide 31 mmol/L (21-32); Chloride 99 mmol/L (98-108); Estimated Glomerular Filt Rate > 60; Glucose 172 mg/dL (70-99); Osmolality Calculated 289 mOsm/kg (285-295); Potassium 4.3 mmol/L (3.5-5.1); Sodium 138 mmol/L (136-145)
== END 2023-01-12 14:10 | disposition home or self-care (01) ==
LOC: CHSLAB 14:15
PROVIDERS: PCP Internal Medicine; Visit Provider Internal Medicine
DX: N20.0 Calculus of kidney (principal); E83.51 Hypocalcemia
CPT/HCPCS: 36415; 80048

== ENCOUNTER 2023-09-25 11:20 | Emergency (ER) | payer OTHER, SELFPAY ==
--- NOTE | ~2023-09-25 | XR_ITS ---
EXAMINATION: XR chest 2V DATE: 09/25/2023 13:07 INDICATION: Emphysema presenting with mid to left-sided chest pain and dyspnea TECHNIQUE: PA and lateral views of the chest were obtained. COMPARISON: Chest radiograph dated 11/06/2022 FINDINGS: The lungs remain clear with no focal airspace opacities, pulmonary edema, pleural effusion or pneumot horax. The cardiomediastinal silhouette is normal. Cholecystectomy clips in right upper quadrant. Mil d S-shaped curvature of the thoracic and lumbar spine. IMPRESSION: 1. No acute cardiopulmonary disease. Reviewed, dictated and finalized at location A. DOWN CHECKER
--- NOTE | 2023-09-25 11:21 | ECG_ITS ---
Measurements Intervals [place] Rate: 65 P: 30 NC: 207 QRS: 54 QRSD: 79 T: 43 QT: 400 QTc: 418 Interpretive Statements SINUS RHYTHM LOW QRS VOLTAGE IN PRECORDIAL LEADS NONSPECIFIC ST & T-WAVE ABNORMALITY- ANTERIOR LEADS BASELINE ARTIFACT- I, II, III, AVR, AVL, V3, V6 BORDERLINE ECG COMPARED TO ECG 11/06/2022 11:08:40 NO SIGNIFICANT CHANGES Electronically Signed On 09-25-2023 11:53:19 ENVIRONMENTAL FIELD TEAM MEMBER by Kilo Salvador D.O.
[2023-09-25 11:56] VITALS: BP 129/70; PULSE 69; RESP 16; O2SAT 97
--- NOTE | 2023-09-25 14:26 | ECG_ITS ---
Measurements Intervals [place] Rate: 64 P: 25 PA: 203 QRS: 47 QRSD: 75 T: 34 QT: 392 QTc: 407 Interpretive Statements SINUS RHYTHM NONSPECIFIC ST & T-WAVE ABNORMALITY- DIFFUSE LEADS BASELINE ARTIFACT- I, II, III, AVR, AVL, AVF, V4 BORDERLINE ECG COMPARED TO ECG 09/25/2023 11:45:14 NO SIGNIFICANT CHANGES Electronically Signed On 09-25-2023 15:23:03 ZOO DIRECTOR by Kilo Salvador D.O.
[2023-09-25 15:32] LABS: Troponin I < 0.012 ng/mL (0.000-0.034)
--- NOTE | 2023-09-25 15:43 | ED.CHESTPAIN ---
HPI - Chest Pain General Chief Complaint: Chest Pain <Deion Landaverde MD - Last Filed: 09/28/23 18:10> Stated Complaint: cp <Deion Landaverde MD - Last Filed: 09/28/23 18:10> Time Seen by Provider: 09/25/23 15:28 <Deion Landaverde MD - Last Filed: 09/28/23 18:10> History of Present Illness HPI narrative: Patient is a 58-year-old female who presents ER with chest pain. Central and radiating to left side. 06/30 at around 10:00 a.m.. Currently 02/28. Has history of coronary stenting. Sees a prover at [facility] in [place], Dr. Mccord. Was told 3 weeks ago that due to the fact that she was having recurrent intermittent chest pain she is likely going to require admission for further evaluation. She has had no syncope. When pain occurs it is associated with nausea. It is not associated with eating or drinking. She will have this on occasion with walking but today it started while lying in bed. Patient also endorses some diarrhea that has occurred today as well but is separate from her chest discomfort does not affected. <Deion Landaverde MD - Last Filed: 09/28/23 18:10> Related Data Home Medications: Home Medications Medication Instructions Recorded Confirmed amlodipine 5 mg tablet 5 mg DAILY 12/23/21 11/10/22 aspirin 81 mg DAILY 12/23/21 11/10/22 atorvastatin 20 mg tablet 20 mg HS 12/23/21 11/10/22 cyclobenzaprine 10 mg tablet 10 mg TID PRN Back Pain 12/23/21 11/10/22 icosapent ethyl 1 gram capsule 1 g PO BID 12/23/21 11/10/22 (Vascepa) metformin 500 mg tablet 500 mg BIDWM 12/23/21 11/10/22 omeprazole 20 mg capsule,delayed 20 mg DAILY 12/23/21 11/10/22 release potassium citrate 15 mEq (1,620 30 meq PO BIDWM 12/23/21 11/10/22 mg) tablet,extended release propranolol 80 mg capsule,24 80 mg PO DAILY 12/23/21 11/10/22 hr,extended release ropinirole 1 mg tablet 1 mg BID 12/23/21 11/10/22 Vimpat 100 mg PO BID 11/06/22 11/10/22 albuterol sulfate 90 mcg/actuation 2 inh inhalation Q4H PRN Shortness 11/06/22 11/10/22 aerosol inhaler Of Breath Or Wheezing alprazolam 1 mg tablet 1 mg PO QID 11/06/22 11/10/22 bupropion HCl 100 mg tablet,12 hr 100 mg PO TID 11/06/22 11/10/22 sustained-release olanzapine 20 mg tablet 20 mg PO HS 11/06/22 11/10/22 ondansetron HCl 4 mg tablet 4 mg PO Q6H PRN Nausea And Vomiting 11/06/22 11/10/22 valacyclovir 500 mg tablet 500 mg PO BID PRN Outbreak 11/06/22 11/10/22 zolpidem 10 mg tablet 10 mg PO HS 11/06/22 11/10/22 <Deion Landaverde MD - Last Filed: 09/28/23 18:10> Allergies/Adverse Reactions: Allergies Allergy/AdvReac Type Severity Reaction Status Date / Time cephalexin [Keflex] Allergy Intermediate Unknown Verified 11/10/22 15:00 Penicillins Allergy Intermediate Unknown Verified 11/10/22 15:00 Cephalosporins Allergy Mild Unknown Verified 11/10/22 15:00 pregabalin [From Lyrica] Allergy Unknown Verified 11/10/22 15:00 sulfamethoxazole Allergy rash Verified 11/10/22 15:00 [From Bactrim] trimethoprim [From Bactrim] Allergy rash Verified 11/10/22 15:00 TAPE Allergy Mild Unknown Uncoded 11/06/22 11:08 <Deion Landaverde MD - Last Filed: 09/28/23 18:10> Review of Systems Review of Systems: All systems reviewed & are unremarkable except as noted in HPI and below <Deion Landaverde MD - Last Filed: 09/28/23 18:10> Constitutional: Constitutional: Denies chills, Denies fatigue and Denies fever(s) <Deion Landaverde MD - Last Filed: 09/28/23 18:10> ENT: Reports system reviewed and no additional complaints, except as documented <Deion Landaverde MD - Last Filed: 09/28/23 18:10> Cardiovascular: Cardiovascular: Reports chest pain, Denies rapid heart rate and Reports radiating jaw, neck or arm pain ( Radiates to left axilla) <Deion Landaverde MD - Last Filed: 09/28/23 18:10> Respiratory: Respiratory: Denies cough, Denies dyspnea and Denies wheezing <Deion Landaverde MD - Last Filed: 09/28/23 18:10> Gastroin
[2023-09-25 16:04] VITALS: BP 122/76; PULSE 71; RESP 14; O2SAT 99
[2023-09-25] MEDS: ASPIRIN 81 MG CHEWABLE TABLET 324 MG PO (16:09)
[2023-09-25 16:52] LABS: Basophils Absolute Auto 0.1 K/mm3 (0.0-0.1); Basophils Percent Auto 0.7 % (0.2-1.2); Eosinophils Absolute Auto 0.1 K/mm3 (0-0.3); Eosinophils Percent Auto 0.7 % (0-4.4); Hematocrit 39.2 % (37.0-47.0); Hemoglobin 12.3 g/dL (12.0-15.0); Immature Granulocyte Absolute 0.02 K/mm3 (0.00-0.031); Immature Granulocyte Percent A 0.2 % (0-0.5); Lymphocytes Absolute Auto 2.91 K/mm3 (0.9-3.2); Lymphocytes Percent Auto 30.8 % (18.3-44.2); Mean Corpuscular HGB Conc 31.4 g/dl (32-36); Mean Corpuscular Hemoglobin 29.9 pg (26-34); Mean Corpuscular Volume 95.4 fl (80-100); Mean Platelet Volume 10.2 fl (7.4-10.4); Monocytes Absolute Auto 0.5 K/mm3 (0.1-0.6); Monocytes Percent Auto 5.7 % (2.6-8.5); Neutrophils Absolute Auto 5.9 K/mm3 (1.3-6.7); Neutrophils Percent Auto 61.9 % (45.5-73.1); Platelet Count Result 277 k/mm3 (150-375); Red Blood Count 4.11 M/mm3 (4.2-5.4); White Blood Count 9.5 K/mm3 (4.5-10.0)
[2023-09-25 17:02] LABS: Prothrombin Time 13.9 Seconds (11.1-14.7)
[2023-09-25 17:03] LABS: Partial Thromboplastin Time 26.3 SECONDS (22.3-36.8)
[2023-09-25 18:00] LABS: Alanine Aminotransferase 27 U/L (6-35); Albumin Level 4.6 g/dL (3.5-5.1); Alkaline Phosphatase 77 U/L (38-126); Anion Gap 9 mmol/L (8-16); Aspartate Amino Transferase 34 U/L (14-36); Bilirubin,Total 0.5 mg/dL (0.2-1.3); Blood Urea Nitrogen 17 mg/dL (7-17); Calcium 9.2 mg/dL (8.4-10.2); Carbon Dioxide 28 mmol/L (22-30); Chloride 97 mmol/L (98-107); Estimated CRCL calculation 60 ml/min; Estimated Glomerular Filt Rate > 60; Glucose 192 mg/dL (65-110); Lipase 45 U/L (23-300); Potassium 3.8 mmol/L (3.4-5.0); Sodium 134 mmol/L (137-145)
[2023-09-25 18:21] VITALS: BP 140/86; PULSE 75; RESP 17; O2SAT 97
[2023-09-25] MEDS: NITROGLYCERIN SL 0.4 MG TABLET SUBLINGUAL (18:25)
[2023-09-25] MEDS: LOPERAMIDE HCL 2 MG CAPSULE 4 MG PO (19:06)
[2023-09-25 20:03] VITALS: BP 118/76; PULSE 67; RESP 15; O2SAT 98
[2023-09-25] MEDS: MORPHINE SULFATE (*CRX) 4 MG/ML INJ 2 MG IV PUSH (20:30)
--- NOTE | 2023-09-25 20:41 | PC.NURSE ---
Pt reports nausea. MD made aware. Dr. Velazquez gave VORB for 4mg Zofran IVP stat.
[2023-09-25] MEDS: ONDANSETRON INJ 4 MG/2 ML VIAL IV PUSH (20:54)
[2023-09-25 21:00] LABS: Troponin I < 0.012 ng/mL (0.000-0.034)
--- NOTE | 2023-09-25 21:04 | PC.NURSE ---
Duran, house director at [facility], called with bed number for patient. - #455. and phone number for report is [phone] ext. [phone]
[2023-09-25 21:12] VITALS: PULSE 67; RESP 13; TEMP 36.3; O2SAT 99
--- NOTE | 2023-09-25 21:12 | PC.NURSE ---
Aayush at [facility] was called for report at [phone] ext. [phone].
[2023-09-25 22:05] VITALS: PULSE 71; RESP 17; O2SAT 98
== END 2023-09-25 22:06 | disposition short-term general hospital (02) ==
PROVIDERS: Emergency Medicine; Emergency Provider Emergency Medicine; PCP Internal Medicine
DX: R07.9 Chest pain, unspecified (principal); J45.909 Unspecified asthma, uncomplicated; I25.2 Old myocardial infarction; I10 Essential (primary) hypertension; E11.9 Type 2 diabetes mellitus without complications; E78.5 Hyperlipidemia, unspecified; M79.7 Fibromyalgia; Z95.5 Presence of coronary angioplasty implant and graft; Z87.440 Personal history of urinary (tract) infections; Z79.82 Long term (current) use of aspirin; Z79.84 Long term (current) use of oral hypoglycemic drugs; Z90.49 Acquired absence of other specified parts of digestive tract; R94.31 Abnormal electrocardiogram [ECG] [EKG]
CPT/HCPCS: 36415; 71046; 80053; 83690; 84484; 85025; 85610; 85730; 93005; 96374; 96375; 99285; A9270; J2270; J2405

== ENCOUNTER 2024-01-11 20:20 | Observation (INO) | payer MEDICARE, MEDICAID, SELFPAY ==
--- NOTE | ~2024-01-11 | XR_ITS ---
EXAMINATION: XR chest 2V Exam Date/Time: 01/11/2024 21:03 CDT HISTORY: chest pain; HX 3 HEART ATTACKS Comparison: 09/25/2023. RESULT: Lines, tubes, and devices: Cholecystectomy clips. Lungs and pleura: Clear. Cardiomediastinal silhouette: Stable. Other: No acute osseous or upper abdominal finding. IMPRESSION: No acute cardiopulmonary process. Reviewed, dictated and finalized at location K.
--- NOTE | ~2024-01-11 | CT_ITS ---
EXAMINATION: CT abdomen pelvis w con DATE: 01/12/2024 01:22 INDICATION: Abdominal pain. TECHNIQUE: Computed tomography (CT) of the abdomen and pelvis was performed with 100 mL Omnipaque 350 intravenous contrast. Automated exposure control and iterative reconstruction technique were employe d. The dose-length product was 468.66 mGy-cm. COMPARISON: None. FINDINGS: The visualized portions of the lung bases demonstrate mild atelectasis. No pleural effusion . The heart size is normal. No pericardial effusion. The liver, spleen, pancreas, and adrenal glands are normal. There are changes of cholecystectomy. There is cortical thinning of the kidneys. There ar e cysts in the kidneys measuring up to 8 mm on the right. There are 3 stones in right kidney measurin g up to 6 mm. There is a 4 mm stone in left kidney. There are changes of cholecystectomy. There are n o pathologically enlarged lymph nodes. There is no free intraperitoneal fluid. There is mild thoracic and lumbar spondylosis. Thoracolumbar dextroscoliosis is noted. IMPRESSION: 1. Bilateral nonobstructing kidney stones. Reviewed, dictated and finalized at location E.
[2024-01-11 20:29] VITALS: BP 145/92; PULSE 94; RESP 18; TEMP 36.4; O2SAT 100
--- NOTE | 2024-01-11 20:31 | ECG_ITS ---
SEE SCANNED COPY FOR CONFIRMED REPORT MTDD
[2024-01-11 21:07] LABS: Basophils Absolute Auto 0.1 K/mm3 (0.0-0.1); Basophils Percent Auto 0.7 % (0.2-1.2); Eosinophils Absolute Auto 0.1 K/mm3 (0-0.3); Eosinophils Percent Auto 0.8 % (0-4.4); Hematocrit 41.2 % (37.0-47.0); Hemoglobin 12.8 g/dL (12.0-15.0); Immature Granulocyte Absolute 0.03 K/mm3 (0.00-0.031); Immature Granulocyte Percent A 0.3 % (0-0.5); Lymphocytes Absolute Auto 3.23 K/mm3 (0.9-3.2); Lymphocytes Percent Auto 30.8 % (18.3-44.2); Mean Corpuscular HGB Conc 31.1 g/dl (32-36); Mean Corpuscular Hemoglobin 28.6 pg (26-34); Monocytes Absolute Auto 0.7 K/mm3 (0.1-0.6); Monocytes Percent Auto 6.7 % (2.6-8.5); Neutrophils Absolute Auto 6.4 K/mm3 (1.3-6.7); Neutrophils Percent Auto 60.7 % (45.5-73.1); Platelet Count Result 265 k/mm3 (150-375); Red Blood Count 4.48 M/mm3 (4.2-5.4); Red Cell Distribution Width 13.2 % (11.5-14.5); White Blood Count 10.5 K/mm3 (4.5-10.0)
[2024-01-11 21:18] LABS: Partial Thromboplastin Time 26.9 Seconds (22.3-36.8); Prothrombin Time 13.5 Seconds (11.1-14.7)
[2024-01-11 21:22] LABS: Alanine Aminotransferase 28 U/L (6-35); Albumin Level 4.9 g/dL (3.5-5.1); Alkaline Phosphatase 85 U/L (38-126); Anion Gap 10 mmol/L (4-12); Aspartate Amino Transferase 29 U/L (14-36); Bilirubin,Total 0.7 mg/dL (0.2-1.3); Blood Urea Nitrogen 7 mg/dL (7-17); Calcium 9.6 mg/dL (8.4-10.2); Carbon Dioxide 25 mmol/L (22-30); Chloride 100 mmol/L (98-107); Estimated CRCL calculation 68 ml/min; Estimated Glomerular Filt Rate > 60; Glucose 134 mg/dL (65-110); Lipase 46 U/L (23-300); Potassium 3.5 mmol/L (3.4-5.0); Sodium 135 mmol/L (137-145)
[2024-01-11 21:33] LABS: Troponin I < 0.012 ng/mL (0.000-0.034)
[2024-01-12] VITALS (19 sets, daily range): BP systolic 122–140; BP diastolic 67–96; PULSE 63–114; RESP 12–18; TEMP 36–36.8; O2SAT 91–100; BMI 28.3
[2024-01-12 00:39] LABS: Troponin I < 0.012 ng/mL (0.000-0.034)
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
[2024-01-12 03:19] LABS: Troponin I < 0.012 ng/mL (0.000-0.034)
--- NOTE | 2024-01-12 03:23 | ADMGEN ---
This patient, Garima Perry, was admitted to IMU Room 201-01. Patient/family oriented to hospital policies and general routines including ID bracelet, bed and alarms, visiting hours, pain management, procedures, bathroom and other care routines, personal items, smoking policy, room service/diet, and visiting hours. Information on how to activate the Rapid Response Team has been discussed. Patient/Family are encouraged to report perceived risks to care and to ask questions if they do not understand what they are told or what they should do.
[2024-01-12] MEDS: HYDROmorphone HCL INJ (*CRX) 1 MG/ML SYR IV PUSH (04:14)
[2024-01-12] MEDS: ONDANSETRON INJ 4 MG/2 ML VIAL IV PUSH ×3 (04:15→20:07)
--- NOTE | 2024-01-12 09:48 | PM.IMHP ---
H&P: HPI History of Present Illness Date/Time: 01/12/24 09:48 Chief Complaint: chest pain Narrative: This is a 58 year old female with history of hypertension, hyperlipidemia, diabetes, GERD, anxiety, CAD present ED with a chief complaint of chest pain, abdomen pain. patient has been having intermittent chest pain and arm pain on pain since yesterday afternoon. the patient started when she was walking. she had another episode chest pain and gas station, EMS was called, and patient was brought to ED for evaluation treatment. She was given Aspirin by EMS with improvement in pain. Denies fever, shortness of breath, vomiting or diarrhea. upon arrival to ED, patient was afebrile, blood pressure stable, no O2 desaturation on room air, left showed mild leukocytosis of 10,500, CT abdomen pelvis shows no acute intra-abdominal issues, EKG shows sinus rhythm no specific ST T-wave changes PMFSH Past Medical History Medical History (Updated 01/12/24 @ 09:54 by Herve Johnson MD) Asthma Chest pain at rest Diabetes mellitus Dyslipidemia Fibromyalgia Hypertension Non-ST elevated myocardial infarction UTI (urinary tract infection) Surgical History Surgical History (Updated 09/25/23 @ 18:57 by Deion Landaverde MD) History of cholecystectomy History of percutaneous coronary intervention Family History Family History Other Family history of pancreatic cancer Social History Social History Smoking status: Never smoker Alcohol intake: current Substance use: never Substance use type: does not use Do You Feel Safe in your Home?: No Lack of Transportation: No Lack of Food: Never True Current Housing: I Have Housing Concerned About Future Housing: YES Difficulty Paying Gas/Electric Bills: No Difficulty Paying for Meds: No Currently Unemployed: No Education: High School Diploma/GED Difficulty w/ Childcare or Family Care: No Spiritual care concerns: No Meds Home Medications and Allergies Home Medications Medication Instructions Recorded Confirmed Type amlodipine 5 mg tablet 5 mg PO DAILY 12/23/21 01/12/24 History aspirin 81 mg PO DAILY 12/23/21 01/12/24 History atorvastatin 20 mg tablet 20 mg PO HS 12/23/21 01/12/24 History cyclobenzaprine 10 mg tablet 10 mg PO TID PRN Back Pain 12/23/21 01/12/24 History metformin 500 mg tablet 500 mg PO BIDWM 12/23/21 01/12/24 History omeprazole 20 mg capsule,delayed 20 mg PO BIDAC 12/23/21 01/12/24 History release potassium citrate 15 mEq (1,620 15 meq PO BIDWM 12/23/21 01/12/24 History mg) tablet,extended release propranolol 80 mg capsule,24 120 mg PO DAILY 12/23/21 01/12/24 History hr,extended release ropinirole 1 mg tablet 2 mg PO BID 12/23/21 01/12/24 History albuterol sulfate 90 mcg/actuation 2 inh inhalation Q4-6H PRN 11/06/22 01/12/24 History aerosol inhaler Shortness Of Breath Or Wheezing alprazolam 1 mg tablet 1 mg PO TID 11/06/22 01/12/24 History ondansetron HCl 4 mg tablet 4 mg PO Q8H PRN Nausea And Vomiting 11/06/22 01/12/24 History valacyclovir 500 mg tablet 500 mg PO BID PRN Outbreak 11/06/22 01/12/24 History zolpidem 10 mg tablet 10 mg PO HS 11/06/22 01/12/24 History Arnuity Ellipta 1 inh inhalation DAILY 01/12/24 01/12/24 History cyclosporine 0.05 % eye drops in a 1 drp EACH EYE BID 01/12/24 01/12/24 History dropperette (Restasis) fluticasone furoate 200 1 inh inhalation DAILY 01/12/24 01/12/24 History mcg/actuation blister powder for inhalation (Arnuity Ellipta) lacosamide 100 mg tablet 100 mg PO BID 01/12/24 01/12/24 History meclizine 25 mg tablet 25 mg PO TID PRN Dizziness 01/12/24 01/12/24 History trazodone 100 mg tablet 100 mg PO HS 01/12/24 01/12/24 History venlafaxine 150 mg 225 mg PO DAILY 01/12/24 01/12/24 History capsule,extended release 24 hr Allergies Allergy/AdvReac Type Severity Re
--- NOTE | 2024-01-12 10:07 | ECHO_ITS ---
Patient Info Name: Garima Perry Age: 58 years : 1965 Gender: Female Ht: 62 in Wt: 154 lbs BSA: 1.77 m2 HR: 82 bpm BP: 130 / 85 mmHg Heart Rhythm: Sinus Rhythm Technical Quality: Fair Exam Date: 01/12/2024 12:19 PM Exam Location: Echo Lab Patient Status: Inpatient Admit Date: 01/12/2024 Staff Ordering Physician: Herve Johnson MD User Interface Artist: Shirin Thomas RDCS Attending Provider: Analilia Esquivel MD Exam Type: CA echo dop color flow w con Study Info Indications R07.9 - Chest pain, unspecified Complete two-dimensional, color flow and Doppler transthoracic echocardiogram is performed with contrast to opacify the left ventricle and to improve the deliniation of the left ventricle endocardial borders. Contrast/Agitated Saline Contrast/Ag. Saline: Definity Amount: 2.00 ml Administered By: Shirin Thomas RDCS Existing IV Access: Yes IV Access Condition: patent with no signs of infiltration Summary 1. Left ventricular chamber dimension is normal. 2. Left ventricular systolic function is normal, estimated at 65-70%. 3. The left ventricular diastolic function is grade I diastolic dysfunction. 4. Right ventricular systolic function is normal. 5. No significant valvular disease. Left Ventricle Left ventricular chamber dimension is normal. Left ventricular systolic function is normal, estimated at 65-70%. There is no increased left ventricular wall thickness. The left ventricular diastolic function is grade I diastolic dysfunction. Right Ventricle Right ventricular chamber dimension is normal. Right ventricular systolic function is normal. Left Atria Left atrial chamber dimension is normal. Right Atria Right atrial chamber dimension is normal. Atrial Septum Intact interatrial septum visualized by color flow imaging. Aortic Valve The aortic valve is trileaflet. There is mild aortic valve sclerosis. There is no aortic valve stenosis. There is no aortic valve regurgitation. Pulmonic Valve The pulmonic valve is not well visualized. Mitral Valve There is trace mitral valve regurgitation. Tricuspid Valve There is trace tricuspid valve regurgitation. Pericardium/Pleural There is no pericardial effusion. Inferior Vena Cava Normal inferior vena cava with >50% collapse upon inspiration consistent with normal right atrial pressure, 3 mmHg. Aorta The aortic root size at the sinus of Valsalva is normal. Left Ventricular Outflow Tract Name Value Normal LVOT 2D LVOT Diameter 1.98 cm LVOT Doppler LVOT Peak Gradient 3 mmHg LVOT Mean Gradient 2 mmHg LVOT VTI 16.12 cm LVOT VTI/AV VTI Ratio 0.69 LVOT Stroke Volume 49.55 ml LVOT CO 3.53 l/min LVOT CI 2.00 L/min/m2 Pulmonic Valve Name Value Normal RVOT Doppler
[2024-01-12] MEDS: POTASSIUM CITRATE 5 MEQ TAB CR 15 MEQ PO ×2 (10:57→17:13)
[2024-01-12] MEDS: PROPRANOLOL HCL 60 MG CAPSULE CR 120 MG PO (10:58)
[2024-01-12] MEDS: ASPIRIN 81 MG CHEWABLE TABLET PO (10:58)
[2024-01-12] MEDS: cycloSPORINE 0.4 ML OPHTH SOLUTION 1 DROP EACH EYE ×2 (10:58→20:07)
[2024-01-12] MEDS: amLODIPine BESYLATE 5 MG TABLET PO (10:58)
[2024-01-12] MEDS: PANTOPRAZOLE 40 MG TABLET PO ×2 (10:58→20:06)
[2024-01-12] MEDS: rOPINIRole HCL 1 MG TABLET 2 MG PO ×2 (10:58→20:06)
[2024-01-12 12:04] LABS: Glucose Point of Care 140 mg/dl (65-105)
[2024-01-12] MEDS: ALPRAZolam (*CRX) 0.5 MG TABLET 1 MG PO ×2 (12:38→17:13)
[2024-01-12] MEDS: PERFLUTREN LIPID MICROSPHERES 1.5 ML VIAL DILUTED TO 10 ML TOTAL VOLUME IV PUSH (12:45)
--- NOTE | 2024-01-12 13:24 | IVDEFINITY ---
Prior to administration of IV Definity the patient was educated on the risks and benefits of the imaging enhancing agent including potential adverse side effects. The patient verbalized understanding. Allergies were verified. No exclusion criteria were identified and at least one of the following inclusion criteria were met: 1) physician request, 2) patient technically difficult to image (per the [place] [employer] guidelines of two or more segments not discernable within the apical view), or 3) questionable left ventricular function. ?
[2024-01-12 16:02] LABS: Glucose Point of Care 167 mg/dl (65-105)
[2024-01-12] MEDS: metFORMIN HCL 500 MG TABLET PO (17:13)
[2024-01-12 19:00] LABS: Appearance Urine Clear (Clear); Bilirubin Urine Negative (Negative); Blood Urine Negative (Negative); Color Urine Yellow (Yellow); Glucose Urine UA Negative (Negative); Ketones Urine 1+ mg/dL (Negative); Leukocyte Esterase Ur Negative LEU/UL (Negative); Nitrate Urine Negative (Negative); Protein Urine Negative (Negative); Urobilinogen Urine 0.2 mg/dL (<2.0); pH Urine 7.5 (5.0-9.0)
[2024-01-12 19:17] LABS: Add Urine Microscopic? NO
[2024-01-12] MEDS: ATORVASTATIN 20 MG TABLET PO (20:06)
[2024-01-12] MEDS: ZOLPIDEM TARTRATE (*CRX) 5 MG TABLET 10 MG PO (20:06)
[2024-01-12] MEDS: traZODone HCL 50 MG TABLET 100 MG PO (20:06)
[2024-01-12 20:42] LABS: Glucose Point of Care 130 mg/dl (65-105)
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
[2024-01-13] VITALS (17 sets, daily range): BP systolic 110–150; BP diastolic 61–86; PULSE 54–70; RESP 12–18; TEMP 35.9–36.8; O2SAT 92–100
[2024-01-13] MEDS: ONDANSETRON INJ 4 MG/2 ML VIAL IV PUSH (04:21)
[2024-01-13] MEDS: FLUTICASONE PROP 220 MCG (*SP) 12 GM INHALER 2 PUFF INHALATION ×2 (06:56→20:44)
[2024-01-13 08:12] LABS: Glucose Point of Care 126 mg/dl (65-105)
[2024-01-13] MEDS: metFORMIN HCL 500 MG TABLET PO ×2 (10:27→17:40)
[2024-01-13] MEDS: VENLAFAXINE HCL XR 75 MG CAP.ER.24H 225 MG PO (10:27)
[2024-01-13] MEDS: PROPRANOLOL HCL 60 MG CAPSULE CR 120 MG PO (10:27)
[2024-01-13] MEDS: ALPRAZolam (*CRX) 0.5 MG TABLET 1 MG PO ×3 (10:27→17:40)
[2024-01-13] MEDS: POTASSIUM CITRATE 5 MEQ TAB CR 15 MEQ PO ×2 (10:27→17:41)
[2024-01-13] MEDS: PANTOPRAZOLE 40 MG TABLET PO ×2 (10:28→20:58)
[2024-01-13] MEDS: amLODIPine BESYLATE 5 MG TABLET PO (10:28)
[2024-01-13] MEDS: ASPIRIN 81 MG CHEWABLE TABLET PO (10:28)
[2024-01-13] MEDS: rOPINIRole HCL 1 MG TABLET 2 MG PO ×2 (10:28→20:55)
[2024-01-13] MEDS: cycloSPORINE 0.4 ML OPHTH SOLUTION 1 DROP EACH EYE ×2 (10:28→20:58)
--- NOTE | 2024-01-13 10:47 | PM.IMPN ---
Progress Note: A&P Assessment and Plan (1) Chest pain: Qualifiers: Chest pain type: unspecified Qualified Code(s): R07.9 - Chest pain, unspecified Code(s): R07.9 - Chest pain, unspecified Status: Acute (2) Essential hypertension: Code(s): I10 - Essential (primary) hypertension Status: Acute (3) Hyperlipidemia: Code(s): E78.5 - Hyperlipidemia, unspecified Status: Acute Plan chest pain History of CAD Several episodes chest pain yesterday Troponin negative EKG shows sinus rhythm no specific ST-T changes Follow-up serial troponin, follow echocardiogram Start aspirin 81 mg daily p.o., Lipitor 20 mg daily p.o. telemetry monitoring consult windows server engineer for evaluation treatment echo ? 1. Left ventricular chamber dimension is normal. ? 2. Left ventricular systolic function is normal, estimated at 65-70%. ? 3. The left ventricular diastolic function is grade I diastolic dysfunction. ? 4. Right ventricular systolic function is normal. ? 5. No significant valvular disease. Abdomen pain Patient has epigastric pain Patient has history of irritable bowel disease, diarrhea constipation CT abdomen pelvis CT shows no acute intra-abdominal issue, but patient has bilateral no on atretic kidney stone Start Protonix 40 mg daily p.o. patient has long history of GERD, and worsening acid reflux abdomen pain, and patient also has nausea vomiting We consult GI for evaluation treatment. Patient is scheduled to have EGD in 2 weeks of patient. patient wishes to have early EGD study Hypertension Continue propranolol 120 mg daily p.o. amlodipine 5 mg daily p.o. asthma Stable Continue fluticasone 200 mcg daily Albuterol inhaler 2 puffs q.4 as needed O2 therapy p.r.n. Type 2 diabetes Hold metformin Start insulin sliding scale anxiety Continue Xanax, trazodone and venlafaxine 150 mg daily at home does migraine Patient has intermittent headache , denies focal weakness, vision change No may change Subjective Date/time seen: 01/13/24 10:47 Interval history: I saw and examined the patient today. Patient still has epigastric pain, patient has a nausea vomiting. Patient denies chest pain, diarrhea, dysuria. Patient afebrile, blood pressure stable Exam Narrative: GENERAL: Pleasant, in no acute distress. Well-nourished. - EYES: EOMI. Anicteric. - HENT: Moist mucous membranes. - LUNGS: Clear to auscultation bilaterally, no wheezing, rhonchi, or rales. - CARDIOVASCULAR: Regular rate and rhythm. No murmur. No JVD. - ABDOMEN: Soft, epigastric-tender and non-distended. No palpable masses. - EXTREMITIES: No edema. Peripheral pulses 2+. Non-tender. - NEUROLOGIC: No focal neurological deficits. CN II-XII grossly intact. - PSYCHIATRIC: Awake, Alert and oriented x 3. Appropriate mood and affect. - SKIN: No rashes or lesions. Warm. - LYMPH: No cervical lymphadenopathy. Objective Data Vital Signs Vital Signs: Vital Signs - 24 hr 01/12/24 10:58 01/12/24 11:51 01/12/24 12:00 Temperature 97.2 F L Pulse Rate 82 82 Respiratory Rate 18 Blood Pressure 133/85 Pulse Oximetry 98 Oxygen Delivery Room Air 01/12/24 12:00 01/12/24 14:00 01/12/24 15:45 Temperature 97.3 F L Pulse Rate 74 71 76 Respiratory Rate 18 Blood Pressure 129/86 Pulse Oximetry 96 Oxygen Delivery 01/12/24 16:00 01/12/24 16:00 01/12/24 18:00 Temperature Pulse Rate 76 64 Respiratory Rate Blood Pressure Pulse Oximetry Oxygen Delivery Room Air 01/12/24 20:00 01/12/24 20:00 01/12/24 20:00 Temperature 97.6 F Pulse Rate 63 69 Respiratory Rate 14 Blood Pressure 133/96 H Pulse Oximetry 98 Oxygen Delivery Room Air 01/12/24 23:52 01/12/24 22:00 01/13/24 00:00 Temperature 98.3 F Pulse Rate 63 68 62 Respiratory Rate 12 Blood Pressure 122/67 Pulse Oximetry 91 Oxygen Delivery 01/13/24 00:00 01/13/24 02:00
[2024-01-13 11:49] LABS: Glucose Point of Care 145 mg/dl (65-105)
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
[2024-01-13 16:11] LABS: Glucose Point of Care 140 mg/dl (65-105)
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
[2024-01-13] MEDS: LACOSAMIDE (*CRX) 100 MG TABLET PO (17:41)
[2024-01-13 20:32] LABS: Glucose Point of Care 127 mg/dl (65-105)
[2024-01-13] MEDS: ATORVASTATIN 20 MG TABLET PO (20:55)
[2024-01-13] MEDS: traZODone HCL 50 MG TABLET 100 MG PO (20:55)
[2024-01-13] MEDS: ZOLPIDEM TARTRATE (*CRX) 5 MG TABLET 10 MG PO (20:55)
[2024-01-14] VITALS (8 sets, daily range): BP systolic 101–135; BP diastolic 60–83; PULSE 52–71; RESP 18–20; TEMP 36–36.4; O2SAT 94–97
[2024-01-14] MEDS: MECLIZINE HCL 25 MG TABLET PO (05:08)
[2024-01-14 08:09] LABS: Glucose Point of Care 127 mg/dl (65-105)
[2024-01-14] MEDS: FLUTICASONE PROP 220 MCG (*SP) 12 GM INHALER 2 PUFF INHALATION (08:15)
[2024-01-14] MEDS: VENLAFAXINE HCL XR 75 MG CAP.ER.24H 225 MG PO (08:48)
[2024-01-14] MEDS: PROPRANOLOL HCL 60 MG CAPSULE CR 120 MG PO (08:49)
[2024-01-14] MEDS: cycloSPORINE 0.4 ML OPHTH SOLUTION 1 DROP EACH EYE (08:49)
[2024-01-14] MEDS: amLODIPine BESYLATE 5 MG TABLET PO (08:49)
[2024-01-14] MEDS: LACOSAMIDE (*CRX) 100 MG TABLET PO (08:49)
[2024-01-14] MEDS: metFORMIN HCL 500 MG TABLET PO (08:49)
[2024-01-14] MEDS: PANTOPRAZOLE 40 MG TABLET PO (08:50)
[2024-01-14] MEDS: ALPRAZolam (*CRX) 0.5 MG TABLET 1 MG PO ×2 (08:50→11:57)
[2024-01-14] MEDS: VENLAFAXINE HCL XR 75 MG CAP.ER.24H PO (08:50)
[2024-01-14] MEDS: rOPINIRole HCL 1 MG TABLET 2 MG PO (08:51)
[2024-01-14] MEDS: ASPIRIN 81 MG CHEWABLE TABLET PO (08:51)
[2024-01-14] MEDS: POTASSIUM CITRATE 5 MEQ TAB CR 15 MEQ PO (08:51)
--- NOTE | 2024-01-14 09:22 | PM.PNCARD ---
Progress Note: A&P Assessment and Plan (1) Chest pain: Qualifiers: Chest pain type: unspecified Qualified Code(s): R07.9 - Chest pain, unspecified Code(s): R07.9 - Chest pain, unspecified Status: Acute Assessment and Plan: Chest pain describes min atypical occurs randomly generally without provocation but she also notes on occasion with activity. She has ruled out for myocardial infarction negative serial enzymes. ECG with diffuse ST abnormality possibly consistent with ischemia. Records from her established catalog specialist were obtained and outline multiple negative ischemic evaluations including coronary angiogram in 2021 showing no CAD and unremarkable stress test during a recent hospitalization. Furthermore, echocardiogram this admission revealed normal LV function EF 65-70% no wall motion abnormalities or significant valvular heart disease. Any further ischemic evaluation would be redundant at this point. Continue aspirin, statin Follow up with established catalog specialist at [facility] for discharge from a cardiac standpoint (2) Essential hypertension: Code(s): I10 - Essential (primary) hypertension Status: Acute Assessment and Plan: Blood pressure stable, controlled. Continue amlodipine 5 mg daily, propranolol 120 mg daily. (3) Hyperlipidemia: Code(s): E78.5 - Hyperlipidemia, unspecified Status: Acute Assessment and Plan: Continue atorvastatin 20 mg at bedtime. (4) Delusion: Code(s): F22 - Delusional disorders Status: Acute Assessment and Plan: Defer to primary service. As an outpatient, patient was on lacosamide, trazodone, and venlafaxine. Caution to avoid additional medications which may result in confusion. Further workup per primary service in this regard. No clear evidence for infection, unremarkable urinalysis. (5) Diabetes mellitus: Code(s): E11.9 - Type 2 diabetes mellitus without complications Status: Acute Assessment and Plan: Management per primary service. Monitor blood sugars closely and avoid symptomatic hypoglycemia. Patient remains on metformin 500 mg twice daily in addition to novolog insulin. Subjective Date/time seen: 01/14/24 09:22 Interval history: Cardiology follow up for chest pain Date of service 01/14/2024: She is complaining of nausea this morning. She denies any chest pain currently. Review of Systems Review of Systems: Remainder of the review of systems is otherwise negative aside from that noted in the HPI. All systems reviewed & are unremarkable except as noted in HPI and below Constitutional: Constitutional: Reports as per HPI and Reports no additional constitutional complaints Eyes: Eyes: Reports as per HPI and Reports no additional eye complaints ENT: Reports system reviewed and no additional complaints, except as documented and Reports as per HPI Cardiovascular: Cardiovascular: Reports as per HPI and Reports no additional cardiovascular complaints Respiratory: Respiratory: Reports as per HPI and Reports no additional respiratory complaints Gastrointestinal: Gastrointestinal: Reports as per HPI and Reports no additional gastrointestinal complaints Genitourinary: Genitourinary: Reports as per HPI Musculoskeletal: Musculoskeletal: Reports no additional musculoskeletal complaints and Reports as per HPI Integumentary/Breasts: Skin/Breast: Reports system reviewed and no additional complaints, except as docu and Reports as per HPI Neurologic: Reports system reviewed and no additional complaints, except as documented and Reports as per HPI Psychiatric: Psychiatric: Reports no additional psychiatric complaints and Reports as per HPI Endocrine: Endocrine: Reports no additional endocrine complaints and Reports as per HPI Hematologic/Lymphatic: Hematologic/Lymphatic: Reports no additional hematologic/lymphatic complaints and Reports as per HPI Allergic/Immunol
--- NOTE | 2024-01-14 10:38 | PM.IMPN ---
Progress Note: A&P Assessment and Plan (1) Chest pain: Qualifiers: Chest pain type: unspecified Qualified Code(s): R07.9 - Chest pain, unspecified Code(s): R07.9 - Chest pain, unspecified Status: Acute (2) Essential hypertension: Code(s): I10 - Essential (primary) hypertension Status: Acute (3) Hyperlipidemia: Code(s): E78.5 - Hyperlipidemia, unspecified Status: Acute Plan chest pain History of CAD Several episodes chest pain yesterday Troponin negative EKG shows sinus rhythm no specific ST-T changes Follow-up serial troponin, follow echocardiogram Start aspirin 81 mg daily p.o., Lipitor 20 mg daily p.o. telemetry monitoring consult stringing machine operator for evaluation treatment echo ? 1. Left ventricular chamber dimension is normal. ? 2. Left ventricular systolic function is normal, estimated at 65-70%. ? 3. The left ventricular diastolic function is grade I diastolic dysfunction. ? 4. Right ventricular systolic function is normal. ? 5. No significant valvular disease. patient cardiology consultation, recommend to discharge patient home and follow up patient in office Abdomen pain Patient has epigastric pain Patient has history of irritable bowel disease, diarrhea constipation CT abdomen pelvis CT shows no acute intra-abdominal issue, but patient has bilateral no on atretic kidney stone Start Protonix 40 mg daily p.o. patient has long history of GERD, and worsening acid reflux abdomen pain, and patient also has nausea vomiting We consult GI for evaluation treatment. Patient is scheduled to have EGD in 2 weeks of patient. patient wishes to have early EGD study 01/13: appreciate GI consultation, GI will follow-up patient of patient Hypertension Continue propranolol 120 mg daily p.o. amlodipine 5 mg daily p.o. asthma Stable Continue fluticasone 200 mcg daily Albuterol inhaler 2 puffs q.4 as needed O2 therapy p.r.n. Type 2 diabetes Hold metformin Start insulin sliding scale resume home medication at discharge anxiety Continue Xanax, trazodone and venlafaxine 150 mg daily at home does migraine Patient has intermittent headache , denies focal weakness, vision change Subjective Date/time seen: 01/14/24 10:38 Interval history: patient has no new issue event overnight, patient is afebrile, blood pressure stable, Exam Narrative: GENERAL: Pleasant, in no acute distress. Well-nourished. - EYES: EOMI. Anicteric. - HENT: Moist mucous membranes. - LUNGS: Clear to auscultation bilaterally, no wheezing, rhonchi, or rales. - CARDIOVASCULAR: Regular rate and rhythm. No murmur. No JVD. - ABDOMEN: Soft, epigastric-tender and non-distended. No palpable masses. - EXTREMITIES: No edema. Peripheral pulses 2+. Non-tender. - NEUROLOGIC: No focal neurological deficits. CN II-XII grossly intact. - PSYCHIATRIC: Awake, Alert and oriented x 3. Appropriate mood and affect. - SKIN: No rashes or lesions. Warm. - LYMPH: No cervical lymphadenopathy. Objective Data Vital Signs Vital Signs: Vital Signs - 24 hr 01/13/24 11:35 01/13/24 12:00 01/13/24 15:48 Temperature 96.9 F L 98.2 F Pulse Rate 59 L 55 L 59 L Respiratory Rate 18 16 Blood Pressure 110/63 122/78 Pulse Oximetry 98 95 Oxygen Delivery Fraction of Inspired Oxygen 01/13/24 16:00 01/13/24 20:21 01/13/24 20:47 Temperature 97.9 F Pulse Rate 58 L 56 L Respiratory Rate 14 Blood Pressure 114/61 Pulse Oximetry 92 92 Oxygen Delivery Room Air Fraction of Inspired Oxygen 01/13/24 21:05 01/13/24 20:00 01/13/24 23:56 Temperature 97.6 F Pulse Rate 56 L 64 60 Respiratory Rate 14 18 Blood Pressure 122/69 Pulse Oximetry 92 94 Oxygen Delivery Room Air Fraction of Inspired Oxygen 01/14/24 00:00 01/14/24 05:01 01/14/24 04:00 Temperature 97.6 F Pulse Rate 61 52 L 64 Respiratory Rate 18 Blood Pressure 101/83 Pulse Oximetry 94 Oxyg
--- NOTE | 2024-01-14 10:39 | PM.DS ---
DS: Admitting Diagnosis Discharge Date 01/13 Admitting Diagnosis (1) Chest pain: ?Qualifiers: ?Chest pain type:?unspecified? Qualified Code(s):?R07.9 - Chest pain, unspecified ?Code(s): R07.9 - Chest pain, unspecified ?Status:?Acute (2) Essential hypertension: ?Code(s): I10 - Essential (primary) hypertension ?Status:?Acute (3) Hyperlipidemia: ?Code(s): E78.5 - Hyperlipidemia, unspecified ?Status:?Acute DS: Discharge Diagnosis Discharge Diagnosis (1) Chest pain: Qualifiers: Chest pain type: unspecified Qualified Code(s): R07.9 - Chest pain, unspecified Code(s): R07.9 - Chest pain, unspecified Status: Acute (2) Essential hypertension: Code(s): I10 - Essential (primary) hypertension Status: Acute (3) Hyperlipidemia: Code(s): E78.5 - Hyperlipidemia, unspecified Status: Acute DS: Summary Hospital Course Hospital Course: This is a 58 year old female? with history of hypertension, hyperlipidemia, diabetes, GERD,? anxiety,? CAD present ED with a chief complaint of chest pain, abdomen pain. patient has been having intermittent chest pain and arm pain on pain since yesterday afternoon. ? the patient started? when she was? walking. ? she had another episode chest pain and gas station, EMS was called, and patient was brought to ED for evaluation treatment. She was given Aspirin by EMS with improvement in pain. Denies fever, shortness of breath, vomiting or diarrhea. upon arrival to ED, patient was afebrile, blood pressure stable, no O2 desaturation on room air, left showed mild leukocytosis of 10,500, CT abdomen pelvis shows no acute intra-abdominal issues, EKG shows sinus rhythm no specific ST T-wave changes the following med issues have been addressed during hospitalization chest pain History of CAD Several episodes chest pain yesterday Troponin negative EKG shows sinus rhythm no specific ST-T changes Follow-up serial troponin, follow echocardiogram Start aspirin 81 mg daily p.o., Lipitor 20 mg daily p.o. telemetry monitoring consult television maintenance worker for evaluation treatment echo ? 1. Left ventricular chamber dimension is normal. ? 2. Left ventricular systolic function is normal, estimated at 65-70%. ? 3. The left ventricular diastolic function is grade I diastolic dysfunction. ? 4. Right ventricular systolic function is normal. ? 5. No significant valvular disease. patient cardiology consultation, recommend to discharge patient home and follow up patient in office Abdomen pain Patient has epigastric pain Patient has history of irritable bowel disease, diarrhea constipation CT abdomen pelvis CT shows no acute intra-abdominal issue, but patient has bilateral no on atretic kidney stone Start Protonix 40 mg daily p.o. patient has long history of GERD, and worsening acid reflux abdomen pain, and patient also has nausea vomiting We consult GI for evaluation treatment. Patient is scheduled to have EGD in 2 weeks of patient. patient wishes to have early EGD study 01/13: appreciate GI consultation, GI will follow-up patient of patient Hypertension Continue propranolol 120 mg daily p.o. amlodipine 5 mg daily p.o. asthma Stable Continue fluticasone 200 mcg daily Albuterol inhaler 2 puffs q.4 as needed O2 therapy p.r.n. Type 2 diabetes Hold metformin Start insulin sliding scale resume home medication at discharge anxiety Continue Xanax, trazodone and venlafaxine 150 mg daily at home does migraine Patient has intermittent headache , denies focal weakness, vision change Time Spent with Patient Time attestation: Total time spent providing and/or coordinating discharge services: Exam Narrative: GENERAL: Pleasant, in no acute distress. Well-nourished. - EYES: EOMI. Anicteric. - HENT: Moist mucous membranes. - LUNGS: Clear to auscultation bilaterally, no wheezing, rhonchi, or rales. - C
[2024-01-14 11:21] LABS: Glucose Point of Care 132 mg/dl (65-105)
== END 2024-01-14 12:13 | disposition home or self-care (01) ==
LOC: ANHED 01-12 02:56 → ANHIMU 01-12 06:02
PROVIDERS: Emergency Medicine; Admitting Provider Internal Medicine; Emergency Provider Physician Assistant; PCP Internal Medicine; Visit Provider Hospitalist
DX: I25.118 Atherosclerotic heart disease of native coronary artery with other forms of angina pectoris (principal); N20.0 Calculus of kidney; F22 Delusional disorders; J45.909 Unspecified asthma, uncomplicated; E11.9 Type 2 diabetes mellitus without complications; I11.9 Hypertensive heart disease without heart failure; K21.9 Gastro-esophageal reflux disease without esophagitis; F41.9 Anxiety disorder, unspecified; E78.5 Hyperlipidemia, unspecified; M79.7 Fibromyalgia; G43.909 Migraine, unspecified, not intractable, without status migrainosus; R94.31 Abnormal electrocardiogram [ECG] [EKG]; I25.2 Old myocardial infarction; Z98.61 Coronary angioplasty status; F10.90 Alcohol use, unspecified, uncomplicated; Z79.82 Long term (current) use of aspirin; Z79.84 Long term (current) use of oral hypoglycemic drugs; Z79.51 Long term (current) use of inhaled steroids; Z79.899 Other long term (current) drug therapy
CPT/HCPCS: 36415; 71046; 74177; 80053; 81003; 82948; 83690; 84484; 85025; 85610; 85730; 93005; 94640; 96374; 96375; 99199; 99285; A9270; C8929; G0378; J1170; J2405; Q9957; Q9967

== ENCOUNTER 2025-08-26 10:22 | Observation (INO) | payer MEDICARE, MEDICAID, SELFPAY ==
[2025-08-26] VITALS (15 sets, daily range): BP systolic 91–138; BP diastolic 57–95; PULSE 70–93; RESP 10–19; TEMP 36.6–36.7; O2SAT 95–99; BMI 25.7
--- NOTE | ~2025-08-26 | CT_ITS ---
CTA CHEST CLINICAL HISTORY: hsx of DVT. CP heart palpitations . COMPARISON: Chest x-ray 01/11/2024 TECHNIQUE: Helical CTA performed from thoracic inlet to upper abdomen IV contrast information not in PACS Coronal, sagittal reformats. Multiplanar MIPS CT images acquired with automatic exposure control for dose reduction DLP: 386 mGy-cm FINDINGS: Pulmonary arteries: No PE. Thoracic Aorta: No dissection or aneurysm. Heart/pericardium: Mild cardiomegaly. RV/LV ratio: Normal. Lungs/Pleura: Clear. Tracheobronchial tree: Patent. Nodes: No enlarged nodes. Bones: No acute bony abnormality. Soft tissues: A few small thyroid nodules. Visualized upper abdomen: Hepatomegaly, with steatosis. Cholecystectomy. Small renal stones. IMPRESSION: 1. No PE or other acute cardiopulmonary findings. Reviewed, dictated and finalized at location R. ING HOME MANAGER
--- NOTE | ~2025-08-26 | CT_ITS ---
CT HEAD CTA NECK, CTA HEAD Clinical History: TIA Comparison: 11/06/2022 TECHNIQUE: Unenhanced axial images skull base to vertex Coronal, sagittal reformats Helical images thoracic inlet to vertex IV contrast information not listed in PACS Coronal, sagittal reformats. Multiplanar MIPS CT images acquired with automatic exposure control for dose reduction DLP: 1530 mGy-cm Findings: CT HEAD Sulci, ventricles: Unremarkable. No intracerebral hemorrhage. No evidence acute territorial infarct. No mass effect, midline shift. Bony calvarium intact. Visualized paranasal sinuses: Clear. Mastoid air cells: Clear. No abnormal foci of contrast enhancement. Patent dural venous sinuses. CTA NECK NASCET Criteria utilized Aortic arch: No aneurysm or dissection. Great vessel origins: No stenosis. CCAs: No dissection. No stenosis. Cervical ICAs: No dissection. No stenosis. Vertebral Arteries: Patent. Lung Apices: Clear. Thyroid: The tiny nodules. Nodes: No enlarged nodes. Bones: No acute bony abnormality. CTA HEAD: Aneurysms: None. Intracranial ICAs: Patent, unremarkable. ACAs and their distal branches: Patent, unremarkable. A-Comm: Identified. Patent, unremarkable. MCAs and their distal branches: Patent, unremarkable. Basilar artery: Patent, unremarkable. compensation expert and their distal branches: Patent, unremarkable. P-Comms: Identified. IMPRESSION: CT HEAD: 1. No acute intracranial findings. CTA NECK: 1. No ICA stenosis or other acute arterial abnormality. CTA HEAD: 1. No large vessel arterial occlusive disease or other acute findings. 2. No aneurysms. Reviewed, dictated and finalized at location R. IC RECORDS RESEARCHER
--- NOTE | ~2025-08-26 | MR_ITS ---
EXAMINATION: MR brain/brain stem wo/w con COMPARISON: Comparison 08/26/2025 HISTORY: TIA TECHNIQUE: Multiplanar multisequence images obtained of the brain without and with intravenous contrast, Prohance 17cc injected IV. FINDINGS: The cerebellar tonsils are normal in location. There is no abnormal signal in the clivus of the cervical spine. Pituitary does not appear enlarged There is no acute infarct or hemorrhage There are scattered subcentimeter foci of abnormal signal within the subcortical white matter which are too small to characterize but may represent areas of chronic periventricular ischemic change No hydrocephalus or midline shift. No extra-axial fluid collections. Appropriate flow voids are maintained. Nonspecific minimal mastoid effusions. Sinuses and orbits are unremarkable There is no abnormal enhancement identified IMPRESSION: No acute infarct or hemorrhage. Reviewed, dictated and finalized at location P. NG SUPERVISOR
--- NOTE | ~2025-08-26 | NM_ITS ---
EXAMINATION: NM karena stress w perfusion DATE: 08/30/2025 13:50 INDICATION: Chest pain TECHNIQUE: Rest images were obtained following intravenous administration of 9.6 mCi Tc99m tetrofosmin (Myoview). The patient was infused intravenously with Lexiscan (Regadenoson). Then, 30.0 mCi Tc99m tetrofosmin (Myoview) was administered intravenously, and stress images were obtained. Data was recon structed into short axis and horizontal and vertical long axis SPECT images. Gated SPECT images were also obtained. COMPARISON: None. FINDINGS: There is no definite reversible or fixed perfusion abnormality to suggest ischemia or infarction. There is normal left ventricular chamber size, wall motion and ejection fraction. Left ventricular ejection fraction measures >70%. IMPRESSION: 1. Normal myocardial perfusion at rest and during stress. 2. Left ventricular ejection fraction measuring >70%. Reviewed, dictated and finalized at location A. TECHNICIAN
--- NOTE | 2025-08-26 10:31 | ECG_ITS ---
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
[2025-08-26 11:18] LABS: Hematocrit 37.0 % (37.0-47.0); Hemoglobin 12.6 g/dL (12.0-15.0); Immature Granulocyte Percent A 0.4 % (0-0.5); Immature Platelet Fraction Pct 4.6 % (0.9-11.2); Lymphocytes Absolute Auto 1.92 K/mm3 (0.9-3.2); Mean Corpuscular HGB Conc 34.1 g/dl (32-36); Mean Corpuscular Hemoglobin 30.5 pg (26-34); Mean Corpuscular Volume 89.6 fl (80-100); Nucleated Red Blood Cells Absolute Auto 0.000 K/mm3 (0.0-0.012); Nucleated Red Blood Cells Perc 0.0 % (0.0-0.2); Platelet Count Result 161 k/mm3 (150-375); Red Blood Count 4.13 M/mm3 (4.2-5.4); White Blood Count 7.6 K/mm3 (4.5-10.0)
[2025-08-26 11:20] LABS: Add Urine Microscopic? YES; Appearance Urine Clear (Clear); Glucose Urine UA Negative (Negative); Leukocyte Esterase Ur Trace LEU/UL (Negative); Nitrate Urine Negative (Negative); Specific Grav Ur 1.007 (1.001-1.035)
--- NOTE | 2025-08-26 11:23 | ED.GENADULT ---
HPI - General Adult General Chief complaint: Chest Pain Stated complaint: Chest Pain Time Seen by Provider: 08/26/25 10:30 History of Present Illness HPI narrative: 60-year-old female present to the emergency department for evaluation for multiple issues. Patient presents to the emergency department today because she was having some chest pain and heart palpitations that occurred overnight. Patient does have a prior history of atrial fibrillation and does have prior history of DVTs. Patient states that she also has a prior history of TIAs on approximately 3 days ago she had about 1 hour of left-sided facial droop and left-sided weakness. Patient states that the symptoms last about 1 hour did resolve after that. Upon arrival emergency department patient states she does not feel like she is having heart palpitations but does still have some left-sided chest pain. Patient denies any recent falls or injuries. Related Data Home Medications ?Medication ?Instructions ?Recorded ?Confirmed ?Last Taken ?Type amlodipine 5 mg tablet 5 mg PO DAILY 12/23/21 08/26/25 08/25/25 History aspirin 81 mg PO DAILY 12/23/21 08/26/25 08/25/25 History atorvastatin 20 mg tablet 20 mg PO HS 12/23/21 08/26/25 08/25/25 History cyclobenzaprine 10 mg tablet 10 mg PO TID PRN Back Pain 12/23/21 08/26/25 Unknown History metformin 500 mg tablet 500 mg PO BIDWM 12/23/21 08/26/25 08/25/25 History potassium citrate 15 mEq (1,620 15 meq PO BIDWM 12/23/21 08/26/25 Unknown History mg) tablet,extended release propranolol 80 mg capsule,24 120 mg PO DAILY 12/23/21 08/26/25 08/25/25 History hr,extended release ropinirole 1 mg tablet 2 mg PO BID 12/23/21 08/26/25 Unknown History albuterol sulfate 90 mcg/actuation 2 inh inhalation Q4-6H PRN 11/06/22 08/26/25 Unknown History aerosol inhaler Shortness Of Breath Or Wheezing alprazolam 1 mg tablet 1 mg PO TID 11/06/22 08/26/25 08/25/25 History ondansetron HCl 4 mg tablet 4 mg PO Q8H PRN Nausea And Vomiting 11/06/22 08/26/25 Unknown History valacyclovir 500 mg tablet 500 mg PO BID PRN Outbreak 11/06/22 08/26/25 Unknown History zolpidem 10 mg tablet 10 mg PO HS 11/06/22 08/26/25 Unknown History Arnuity Ellipta 1 inh inhalation DAILY 01/12/24 08/26/25 08/25/25 History cyclosporine 0.05 % eye drops in a 1 drp EACH EYE BID 01/12/24 08/26/25 08/25/25 History dropperette (Restasis) fluticasone furoate 200 1 inh inhalation DAILY 01/12/24 08/26/25 08/25/25 History mcg/actuation blister powder for inhalation (Arnuity Ellipta) lacosamide 100 mg tablet 100 mg PO DAILY 01/12/24 08/26/25 08/25/25 History meclizine 25 mg tablet 25 mg PO TID PRN Dizziness 01/12/24 08/26/25 Unknown History trazodone 100 mg tablet 100 mg PO HS 01/12/24 08/26/25 Unknown History Allergies Allergy/AdvReac Type Severity Reaction Status Date / Time cephalexin (Keflex) Allergy Intermediate Unknown Verified 11/10/22 15:00 Penicillins Allergy Intermediate Unknown Verified 11/10/22 15:00 Cephalosporins Allergy Mild Unknown Verified 11/10/22 15:00 pregabalin (From Lyrica) Allergy Unknown Verified 11/10/22 15:00 sulfamethoxazole (From Allergy rash Verified 11/10/22 15:00 Bactrim) trimethoprim (From Bactrim) Allergy rash Verified 11/10/22 15:00 acetaminophen (From Tylenol) AdvReac Severe Other Verified 08/26/25 15:25 TAPE Allergy Mild Unknown Uncoded 11/06/22 11:08 [facility] Past Medical History Medical History PTSD (post-traumatic stress disorder) Depression Anxiety History of shingles Renal disease History of kidney stones Sleep apnea Emphysema lung DVT (deep venous thrombosis) Atrial fibrillation CVA (cerebral vascular accident) residual dysarthria and balance disturbance CAD (coronary artery disease) Dyslipidemia GERD (gastroesophageal reflux disease) Non-ST elevated myocardial infarction Fibromyalgia Asthma Hypertension Diabetes mellitus Surgical History Surgical History History of section History of tonsillectomy History of appendectomy History of cholecystectomy History of percutaneous coronary intervention Family History Family History Other Family history of pancreatic cancer Social History Social History Smoking status: Never smoker Alcohol intake: former Substance use: never Substance use type: does not use Lack of Transportation: YES Lack of Food: Sometimes True Current Housing: I Do Not Have Housing Concerned About Future Housing: YES Difficulty Paying Gas/Electric Bills: YES Difficulty Paying for Meds: No Currently Unemployed: No Education: High School Diploma/GED Difficulty w/ Childcare or Family Care: No Spiritual care concerns: No Course Consultations Neurology: I have discussed the care of this patient with the following provider: Dr Osborne Vital Signs Vital signs: Vital Signs Pulse Rate 84 08/26/25 10:25 Respiratory Rate 15 08/26/25 10:25 Blood Pressure 129/76 08/26/25 10:25 Pulse Oximetry 99 08/26/25 10:25 Oxygen Delivery Room Air 08/26/25 10:25 Temperature 98.1 F 08/26/25 16:20 Pulse Rate 76 08/26/25 17:52 Respiratory Rate 16 08/26/25 16:20 Blood Pressure 112/57 L 08/26/25 16:20 Pulse Oximetry 98 08/26/25 16:20 Oxygen Delivery Room Air 08/26/25 10:25 MDM MDM Narrative Medical decision making narrative: 60-year-old female presents emergency department for evaluation for multiple complaints including left-sided weakness that lasted approximately 1 hour 3 days ago and left-sided chest pain. Patient is currently afebrile with leukocytosis hemoglobin of 12.6. INR 1.0. Patient does have a sodium 129 potassium of 3.2 patient was treated with 1 L of lactated Ringer's. Patient's creatinine is 1.83 which is worse than her baseline of 0.8. Patient did had negative serial troponins. UA was negative for infection. Patient was positive for benzos. CTA chest was negative for pulmonary embolism. CTA head was negative for occlusive disease, intracranial abnormality or ICA stenosis. Differential Diagnosis Differential Diagnosis: TIA, CVA, subdural trauma, subarachnoid hemorrhage, pulmonary embolism, ACS Lab Data 12/06/25 11:06 08/26/25 11:06 Labs: Lab Results 08/26/25 08/26/25 Range/Units 11:06 13:49 WBC 7.6 (4.5-10.0) K/mm3 RBC 4.13 L (4.2-5.4) M/mm3 Hgb 12.6 (12.0-15.0) g/dL Hct 37.0 (37.0-47.0) % MCV 89.6 (80-100) fl MCH 30.5 (26-34) pg MCHC 34.1 (32-36) g/dl RDW 12.6 (11.5-14.5) % Plt Count 161 (150-375) k/mm3 MPV 10.1 (7.4-10.4) fl Immature Gran % (Auto) 0.4 (0-0.5) % Neut % (Auto) 65.6 (45.5-73.1) % Lymph % (Auto) 25.2 (18.3-44.2) % [place] % (Auto) 7.9 (2.6-8.5) % Eos % (Auto) 0.4 (0-4.4) % Baso % (Auto) 0.5 (0.2-1.2) % Lymph # (Auto) 1.92 (0.9-3.2) K/mm3 [place] # (Auto) 0.6 (0.1-0.6) K/mm3 Eos # (Auto) 0.0 (0-0.3) K/mm3 Baso # (Auto) 0.0 (0.0-0.1) K/mm3 Abs Immat Gran (auto) 0.03 (0.00-0.031) K/mm3 Absolute Neuts (auto) 5.0 (1.3-6.7) K/mm3 Absolute Nucleated RBC 0.000 (0.0-0.012) K/mm3 Nucleated RBC % 0.0 (0.0-0.2) % % Immature Plt Fraction 4.6 (0.9-11.2) % PT 13.7 (11.1-14.7) Seconds INR 1.0 APTT 25.1 (22.3-36.8) Seconds Sodium 129 L (137-145) mmol/L Potassium 3.2 L (3.4-5.0) mmol/L Chloride 96 L (98-107) mmol/L Carbon Dioxide 19 L (22-30) mmol/L Anion Gap 14 H (4-12) mmol/L BUN 25 H D (7-17) mg/dL Creatinine 1.83 H (0.7-1.0) mg/dL Estim Creat Clear Calc 26 ml/min Estimated GFR 28 L (59 - ) Glucose 126 H (65-110) mg/dL Calcium 8.7 (8.4-10.2) mg/dL Total Bilirubin 0.5 (0.2-1.3) mg/dL AST 29 (14-36) U/L ALT 19 (6-35) U/L Alkaline Phosphatase 50 (38-126) U/L Troponin I 0.013 0.013 (0.000-0.034) ng/mL Total Protein 7.9 (6.3-8.2) g/dL Albumin 4.6 (3.5-5.1) g/dL Lipase 105 (23-300) U/L Urine Color Yellow (Yellow) Urine Appearance Clear (Clear) Urine pH 5.0 (5.0-9.0) Ur Specific [place] 1.007 (1.001-1.035) Urine Protein Negative (Negative) mg/dL Urine Glucose (UA) Negative (Negative) mg/dL Urine Ketones Negative (Negative) mg/dL Ur Blood (Man) Negative (Negative) Urine Nitrate Negative (Negative) Urine Bilirubin Negative (Negative) Urine Urobilinogen 0.2 (<2.0) mg/dL Leukocyte Esterase Rfl Trace H (Negative) MARIO/UL Urine RBC 0-2 (0-2) /hpf Urine WBC 6-10 H (0-3) /hpf Ur Squamous Epith Cells Few (Few) /hpf Urine Bacteria None seen /hpf Urine Casts 3-5 Urine Opiates Screen Negative (Negative) Urine Methadone Screen Negative (Negative) Ur Barbiturates Screen Negative (Negative) Ur Phencyclidine Scrn Negative (Negative) Ur Amphetamine Screen Negative (Negative) U Benzodiazepines Scrn Positive A (Negative) Urine Cocaine Screen Negative (Negative) U Cannabinoids Screen Negative (Negative) Imaging Data Radiologist's impression: ITS Impressions Head/Neck CTA 08/26/25 12:26 IMPRESSION: CT HEAD: 1. No acute intracranial findings. CTA NECK: 1. No ICA stenosis or other acute arterial abnormality. CTA HEAD: 1. No large vessel arterial occlusive disease or other acute findings. 2. No aneurysms. Chest CTA 08/26/25 12:39 IMPRESSION: 1. No PE or other acute cardiopulmonary findings. Discharge Plan Discharge Clinical Impression: Brain TIA, Headache, Chest pain Patient Disposition: Still a Patient Condition: Serious Quality HEART score for chest pain patients History: slightly suspicious ECG: normal Age: > 45 and < 65 years Risk factors: 1 or 2 risk factors Troponin: > 1 and < 3x normal limit Heart score: 3
[2025-08-26 11:32] LABS: Alanine Aminotransferase 19 U/L (6-35); Albumin Level 4.6 g/dL (3.5-5.1); Alkaline Phosphatase 50 U/L (38-126); Anion Gap 14 mmol/L (4-12); Aspartate Amino Transferase 29 U/L (14-36); Bilirubin,Total 0.5 mg/dL (0.2-1.3); Blood Urea Nitrogen 25 mg/dL (7-17); Calcium 8.7 mg/dL (8.4-10.2); Carbon Dioxide 19 mmol/L (22-30); Chloride 96 mmol/L (98-107); Estimated CRCL calculation 26 ml/min; Estimated Glomerular Filt Rate 28; Glucose 126 mg/dL (65-110); Lipase 105 U/L (23-300); Potassium 3.2 mmol/L (3.4-5.0); Sodium 129 mmol/L (137-145); Total Protein 7.9 g/dL (6.3-8.2)
[2025-08-26 11:38] LABS: Cannabinoid Screen Urine Negative (Negative)
[2025-08-26 11:39] LABS: Troponin I 0.013 ng/mL (0.000-0.034)
[2025-08-26] MEDS: LACTATED RINGERS 1,000 ML 999 ML IV CONT (14:00)
[2025-08-26 14:07] LABS: INR 1.0; Prothrombin Time 13.7 Seconds (11.1-14.7)
[2025-08-26 14:08] LABS: Partial Thromboplastin Time 25.1 Seconds (22.3-36.8)
[2025-08-26 14:27] LABS: Troponin I 0.013 ng/mL (0.000-0.034)
[2025-08-26] MEDS: ONDANSETRON INJ 4 MG/2 ML VIAL IV PUSH (15:16)
[2025-08-26] MEDS: ASPIRIN 81 MG CHEWABLE TABLET 324 MG PO (15:16)
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
[2025-08-26] MEDS: SODIUM CHLORIDE 0.9% IV 1,000 ML 150 ML IV CONT (16:16)
--- NOTE | 2025-08-26 16:43 | ADMGEN ---
This patient, Garima Perry, was admitted to IMU Room 212-01. Patient/family oriented to hospital policies and general routines including ID bracelet, bed and alarms, visiting hours, pain management, procedures, bathroom and other care routines, personal items, smoking policy, room service/diet, and visiting hours. Information on how to activate the Rapid Response Team has been discussed. Patient/Family are encouraged to report perceived risks to care and to ask questions if they do not understand what they are told or what they should do.
[2025-08-26 17:48] LABS: Troponin I 0.013 ng/mL (0.000-0.034)
--- NOTE | 2025-08-26 18:07 | PM.IMHP2 ---
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 The patient [place] here [place] on [place] for further evaluation of intermittent chest pain and transient weakness. She reports approximately 3 days ago she had an episode of left-sided facial droop and left-sided weakness mostly affecting her left lower extremity that lasted for approximately 1 hour. She has history of TIAs and stroke with residual deficits. She reports her stroke was within the last 5 years and resulted in dysarthria and difficulties with balance. She currently denies any focal weakness, focal numbness, dysarthria that is different from her baseline, dysphagia, vision changes, or headache. She additionally reports she has had intermittent chest pain. She had an episode of chest pain 2 days ago that lasted for approximately 30 minutes and resolved with taking her home medications, specifically reports she took her hydroxyzine. She reports the chest pain occurred again today and was midsternal with some radiation in her left arm and right neck. She did not take any medications today for her pain. She reports she felt slightly nauseated, flushed, palpitations, and mild shortness of breath. She also reports she had 7 episodes of diarrhea in the last 24 hours. She took 1 dose of Imodium and has had no bowel movement since. Initial VS at presentation: 90.1? F, HR 84, R 15, 129/76, and 99% on RA. ED workup showed: No leukocytosis, no anemia, sodium 129, potassium 3.2, creatinine 1.83 and GFR 28, glucose 126, troponin 0.013 x 2, and UA showed trace leuk esterase and 6-10 WBC with few epithelial cells - likely contaminant. UDS positive for benzos. Head/neck CTA showed no acute intracranial findings, no ICA stenosis, normal LVO or aneurysms. EKG showed sinus rhythm, nonspecific ST and T-wave abnormality anterolateral/inferior leads. Review of Systems Review of Systems: All systems reviewed & are unremarkable except as noted in HPI and below FORMERLY [facility] Past Medical History Medical History (Updated 08/26/25 @ 18:32 by Armida Parker APRN) PTSD (post-traumatic stress disorder) Depression Anxiety History of shingles Renal disease History of kidney stones Sleep apnea Emphysema lung DVT (deep venous thrombosis) Atrial fibrillation CVA (cerebral vascular accident) residual dysarthria and balance disturbance CAD (coronary artery disease) Dyslipidemia GERD (gastroesophageal reflux disease) Non-ST elevated myocardial infarction Fibromyalgia Asthma Hypertension Diabetes mellitus Surgical History Surgical History History of section History of tonsillectomy History of appendectomy History of cholecystectomy History of percutaneous coronary intervention Family History Family History Other Family history of pancreatic cancer Social History Social History Smoking status: Never smoker Alcohol intake: former Substance use: never Substance use type: does not use Lack of Transportation: YES Lack of Food: Sometimes True Current Housing: I Do Not Have Housing Concerned About Future Housing: YES Difficulty Paying Gas/Electric Bills: YES Difficulty Paying for Meds: No Currently Unemployed: No Education: High School Diploma/GED Difficulty w/ Childcare or Family Care: No Spiritual care concerns: No Meds Home Medications and Allergies Home Medications ?Medication ?Instructions ?Recorded ?Confirmed ?Type amlodipine 5 mg tablet 5 mg PO DAILY 12/23/21 08/26/25 History aspirin 81 mg PO DAILY 12/23/21 08/26/25 History atorvastatin 20 mg tablet 20 mg PO HS 12/23/21 08/26/25 History cyclobenzaprine 10 mg tablet 10 mg PO TID PRN Back Pain 12/23/21 08/26/25 History metformin 500 mg tablet 500 mg PO BIDWM 12/23/21 08/26/25 History potassium citrate 15 mEq (1,620 15 meq PO BIDWM 12/23/21 08/26/25 History mg) tablet,extended release propranolol 80 mg capsule,24 120 mg PO DAILY 12/23/21 08/26/25 History hr,extended release ropinirole 1 mg tablet 2 mg PO BID 12/23/21 08/26/25 History albuterol sulfate 90 mcg/actuation 2 inh inhalation Q4-6H PRN 11/06/22 08/26/25 History aerosol inhaler Shortness Of Breath Or Wheezing alprazolam 1 mg tablet 1 mg PO TID 11/06/22 08/26/25 History ondansetron HCl 4 mg tablet 4 mg PO Q8H PRN Nausea And Vomiting 11/06/22 08/26/25 History valacyclovir 500 mg tablet 500 mg PO BID PRN Outbreak 11/06/22 08/26/25 History zolpidem 10 mg tablet 10 mg PO HS 11/06/22 08/26/25 History Arnuity Ellipta 1 inh inhalation DAILY 01/12/24 08/26/25 History cyclosporine 0.05 % eye drops in a 1 drp EACH EYE BID 01/12/24 08/26/25 History dropperette (Restasis) fluticasone furoate 200 1 inh inhalation DAILY 01/12/24 08/26/25 History mcg/actuation blister powder for inhalation (Arnuity Ellipta) lacosamide 100 mg tablet 100 mg PO DAILY 01/12/24 08/26/25 History meclizine 25 mg tablet 25 mg PO TID PRN Dizziness 01/12/24 08/26/25 History trazodone 100 mg tablet 100 mg PO HS 01/12/24 08/26/25 History pantoprazole 40 mg tablet,delayed 40 mg PO QHS #30 tabs 01/14/24 08/26/25 Rx release sucralfate 1 gram tablet (Carafate) 1 g PO TID #90 tabs 01/14/24 08/26/25 Rx Allergies Allergy/AdvReac Type Severity Reaction Status Date / Time cephalexin (Keflex) Allergy Intermediate Unknown Verified 11/10/22 15:00 Penicillins Allergy Intermediate Unknown Verified 11/10/22 15:00 Cephalosporins Allergy Mild Unknown Verified 11/10/22 15:00 pregabalin (From Lyrica) Allergy Unknown Verified 11/10/22 15:00 sulfamethoxazole (From Allergy rash Verified 11/10/22 15:00 Bactrim) trimethoprim (From Bactrim) Allergy rash Verified 11/10/22 15:00 acetaminophen (From Tylenol) AdvReac Severe Other Verified 08/26/25 15:25 TAPE Allergy Mild Unknown Uncoded 11/06/22 11:08 Vital Signs Vital Signs - 24 hr 08/26/25 10:25 08/26/25 10:31 08/26/25 11:17 Temperature Pulse Rate 84 87 85 Respiratory Rate 15 10 L 17 Blood Pressure 129/76 120/77 112/73 Pulse Oximetry 99 99 99 Oxygen Delivery Room Air 08/26/25 11:25 08/26/25 11:31 08/26/25 12:16 Temperature Pulse Rate 84 82 80 Respiratory Rate 19 12 Blood Pressure 138/95 H 133/80 Pulse Oximetry 98 97 Oxygen Delivery 08/26/25 13:02 08/26/25 13:46 08/26/25 14:32 Temperature Pulse Rate 83 83 93 Respiratory Rate 14 13 13 Blood Pressure 91/75 L 111/76 113/94 H Pulse Oximetry 99 98 Oxygen Delivery 08/26/25 15:16 08/26/25 16:20 08/26/25 17:52 Temperature 98.1 F 98.1 F Pulse Rate 80 81 76 Respiratory Rate 17 16 Blood Pressure 128/81 112/57 L Pulse Oximetry 99 98 Oxygen Delivery Exam Const: General: comfortable and no acute distress Other: , female, nontoxic appearance HENMT: Face/Nose/Sinus: Normal nares present Mouth: Yes moist mucous membranes Eyes: General: appearance normal, both eyes and all related structures Sclera: sclerae normal Pupils: Equal, round and reactive pupils present EOM: EOMs intact bilaterally Resp: Effort & Inspection: normal respiratory effort Auscultation: clear to auscultation bilaterally Cardio: Rate: regular rate Rhythm: regular rhythm Other: S1-S2 present without murmur, rub, ectopy GI: Other: Abdomen soft, nondistended, nontender. Normoactive bowel sounds in all quadrants. Skin: General skin exam: normal color and no rashes or lesions noted Wounds: no wounds Neuro: Motor exam (neuro): 5/5 motor strength present throughout Sensory Exam: normal sensation Other: A&O x4. Slow speech moreno. Extrem: General: normal to inspection Psych: Mental Status: mental status grossly normal Affect: normal affect Other: Fair insight and judgment. Tangental conversation. Results Labs Labs: Short CBC 08/26/25 Range/Units 11:06 WBC 7.6 (4.5-10.0) K/mm3 Hgb 12.6 (12.0-15.0) g/dL Hct 37.0 (37.0-47.0) % Plt Count 161 (150-375) k/mm3 BMP 08/26/25 11:06 Sodium 129 L Potassium 3.2 L Chloride 96 L Carbon Dioxide 19 L BUN 25 H D Creatinine 1.83 H Glucose 126 H Calcium 8.7 Cardiac Enzymes 08/26/25 08/26/25 08/26/25 Range/Units 11:06 13:49 17:19 Troponin I 0.013 0.013 0.013 (0.000-0.034) ng/mL Liver Function 08/26/25 Range/Units 11:06 Total Bilirubin 0.5 (0.2-1.3) mg/dL AST 29 (14-36) U/L ALT 19 (6-35) U/L Alkaline Phosphatase 50 (38-126) U/L Albumin 4.6 (3.5-5.1) g/dL Urine 08/26/25 Range/Units 11:06 Urine Color Yellow (Yellow) Urine Appearance Clear (Clear) Urine pH 5.0 (5.0-9.0) Ur Specific [place] 1.007 (1.001-1.035) Urine Protein Negative (Negative) mg/dL Urine Glucose (UA) Negative (Negative) mg/dL Quality VTE Prophylaxis VTE prophylaxis: mechanical ordered Assessment and Plan Assessment and plan (1) Transient weakness of left leg: Code(s): R29.898 - Other symptoms and signs involving the musculoskeletal system Status: Acute Assessment and Plan: Transient left lower extremity weakness and left facial droop 3 days ago that lasted for approximately 1 hour that resolved without intervention. Previous history of TIA and stroke with residual dysarthria and balance disturbance. Patient is unsure when her stroke last was but estimates it was in the last 5 years. - admission for observation and telemetry - not candidate for thrombolytics or thrombectomy as her symptoms have resolved/time frame - CTA negative on 08/26 - neurology consulted - brain MRI w/wo ordered - echo completed in 2023 which showed an EF of 65-70% and grade 1 diastolic dysfunction with no significant valvular disease. - neuro checks Q4 - monitor daily labs, add lipid panel and A1C - continue atorvastatin and daily aspirin (2) Chest pain: Qualifiers: Chest pain type: unspecified Qualified Code(s): R07.9 - Chest pain, unspecified Code(s): R07.9 - Chest pain, unspecified Status: Acute Assessment and Plan: Intermittent chest pain. Initially resolved with hydroxyzine. Had episode today that was midsternal with radiation into her left upper extremity and right neck. EKG completed in the ED and reviewed, no significant elevations, mild depressions in the lateral leads. 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 - troponin 0.013 x 3, flat. - no significant changes on EKG compared to previous, will repeat - palpitations and shortness of breath occurring with the chest pain, could be episodes of AFib. On telemetry. - cardiology consulted (3) MARIA ANTONIA (acute kidney injury): Code(s): N17.9 - Acute kidney failure, unspecified Status: Acute Assessment and Plan: Creatinine 1.83, BUN 25, GFR 28 upon admission on 08/26. Creatinine previously 0.7 and GFR >60 in December 2023. We reportedly has had 7 episodes of diarrhea in the last 24 hours. Suspect MARIA ANTONIA secondary to hypovolemia. Will give IV fluids over the next 24 hours, if no improvement consider further workup in nephrology consultation. - LR x1L -> NS 150 mL/hr x1L - trend renal function - monitor electrolytes, correct as needed (4) Acute hyponatremia: Code(s): E87.1 - Hypo-osmolality and hyponatremia Status: Acute Assessment and Plan: Na 129. No current alcohol use. Reviewed home medications, currently on lacosamide and Ambien which could be contributing. Patient also had 7 episodes of diarrhea in the last 24 hours which could additionally be affecting her sodium levels. - check serum osmolality, urine osmolality, urine sodium, protein to creatinine ratio, urine creatinine - recheck BMP this evening - NS 150 mL/hour x1L - exchange heart healthy diet for regular diet - monitor neurological status Q4 (5) Diabetes mellitus: Qualifiers: Diabetes mellitus type: type 2 Diabetes mellitus fci insulin use: without automation consultant use Diabetes mellitus complication status: without complication Qualified Code(s): E11.9 - Type 2 diabetes mellitus without complications Code(s): E11.9 - Type 2 diabetes mellitus without complications Status: Chronic Assessment and Plan: - hypoglycemia protocol - POC blood glucose ACHS - home medication: Hold metformin in case of need for contrast - correct regimen ordered - low dose TIDWM - A1C 6.5% in 2022, update (6) Essential hypertension: Code(s): I10 - Essential (primary) hypertension Status: Acute Assessment and Plan: - chronic, currently 112/57, stable. - continue home medications: Amlodipine 5 mg daily, propranolol 120 mg daily - monitor (7) Atrial fibrillation: Qualifiers: Atrial fibrillation type: paroxysmal Qualified Code(s): I48.0 - Paroxysmal atrial fibrillation Code(s): I48.91 - Unspecified atrial fibrillation Status: Chronic Assessment and Plan: - continue propranolol 120 mg daily - telemetry monitoring - not on anticoagulation (8) Hyperlipidemia: Qualifiers: Hyperlipidemia type: unspecified Qualified Code(s): E78.5 - Hyperlipidemia, unspecified Code(s): E78.5 - Hyperlipidemia, unspecified Status: Chronic Assessment and Plan: - continue home medication: Atorvastatin 20 mg daily Plan Diet: Regular GI Prophylaxis: N/a DVT Prophylaxis: SCDs IV fluids: 1L bolus -> 150 mL/hr x1L Lines/Tubes: pIV Code Status: full code Prior Studies I have reviewed the following patient records and this information was taken into consideration when formulating the assessment and plan.: previous labs, previous ER visits, previous hospitalizations and previous clinic visits Time Spent with Patient Time with patient: less than 45 minutes Hospitalist MIPS Advance Care Plan I have confirmed that the patient's Advanced Care Plan is present, code status is documented, or surrogate decision maker is listed in patient medical record.: Yes Medication Reconciliation I have utilized all available resources to obtain, update and review the patients current medications (includes all prescriptions, OTC, herbals, cannabis, and nutritional supplements).: Yes
--- NOTE | 2025-08-26 18:21 | ECG_ITS ---
Test Date: 2025-08-26 22:34:45 Measurements Intervals [place] Rate: 79 P: 49 IA: 184 QRS: 37 QRSD: 91 T: 56 QT: 339 QTc: 391 Interpretive Statements SINUS RHYTHM DELAYED PRECORDIAL R/S TRANSITION BASELINE ARTIFACT- I, II, III, AVR, AVL, V1 BORDERLINE ECG Compared to ECG 08/26/2025 10:30:51 No significant changes Electronically Signed On 08-27-2025 09:09:32 PROFESSOR OF MANAGEMENT by Kilo Salvador D.O.
[2025-08-26 19:09] LABS: Anion Gap 12 mmol/L (4-12); Blood Urea Nitrogen 20 mg/dL (7-17); Calcium 9.1 mg/dL (8.4-10.2); Carbon Dioxide 25 mmol/L (22-30); Chloride 95 mmol/L (98-107); Estimated CRCL calculation 30 ml/min; Estimated Glomerular Filt Rate 39; Glucose 120 mg/dL (65-110); Potassium 3.3 mmol/L (3.4-5.0); Sodium 132 mmol/L (137-145)
[2025-08-26 20:37] LABS: Total Protein Urine Random 7 mg/dL; Ur Ttl Prot Creatinine Ratio 0.15 mg/mg (0-0.20)
[2025-08-26] MEDS: PANTOPRAZOLE 40 MG TABLET PO (21:24)
[2025-08-26] MEDS: ATORVASTATIN 20 MG TABLET PO (21:24)
[2025-08-26] MEDS: cycloSPORINE 0.4 ML OPHTH SOLUTION 1 DROP EACH EYE (21:24)
[2025-08-26] MEDS: ZOLPIDEM TARTRATE (*CRX) 5 MG TABLET 10 MG PO (21:24)
[2025-08-26] MEDS: POTASSIUM CHLORIDE 20 MEQ PACKET (FOR LIQUID) 40 MEQ PO (22:11)
[2025-08-26] MEDS: IBUPROFEN 400 MG TABLET PO (22:11)
[2025-08-27] VITALS (14 sets, daily range): BP systolic 96–131; BP diastolic 56–83; PULSE 49–93; RESP 14–22; TEMP 36.3–36.9; O2SAT 94–100
[2025-08-27 04:25] LABS: Hematocrit 32.3 % (37.0-47.0); Hemoglobin 10.8 g/dL (12.0-15.0); Immature Granulocyte Percent A 0.2 % (0-0.5); Lymphocytes Absolute Auto 1.60 K/mm3 (0.9-3.2); Mean Corpuscular HGB Conc 33.4 g/dl (32-36); Mean Corpuscular Hemoglobin 29.7 pg (26-34); Mean Corpuscular Volume 88.7 fl (80-100); Nucleated Red Blood Cells Absolute Auto 0.000 K/mm3 (0.0-0.012); Nucleated Red Blood Cells Perc 0.0 % (0.0-0.2); Platelet Count Result 203 k/mm3 (150-375); Red Blood Count 3.64 M/mm3 (4.2-5.4); White Blood Count 5.7 K/mm3 (4.5-10.0)
[2025-08-27 04:44] LABS: Anion Gap 7 mmol/L (4-12); Blood Urea Nitrogen 14 mg/dL (7-17); Calcium 8.9 mg/dL (8.4-10.2); Carbon Dioxide 25 mmol/L (22-30); Chloride 101 mmol/L (98-107); Cholesterol 107 mg/dL (0-200); Estimated CRCL calculation 44 ml/min; Estimated Glomerular Filt Rate > 60; Glucose 111 mg/dL (65-110); HDL Direct 36 mg/dL; Magnesium 1.2 mg/dL (1.6-2.3); Potassium 4.0 mmol/L (3.4-5.0); Sodium 133 mmol/L (137-145); Triglycerides 212 mg/dL (<150)
[2025-08-27 04:57] LABS: Hemoglobin A1C 6.1 % (<5.7)
[2025-08-27] MEDS: FLUTICASONE PROP 220 MCG (*SP) 12 GM INHALER 2 PUFF INHALATION (08:01)
[2025-08-27] MEDS: MAGNESIUM SULF 2 GM/WATER 50ML 2 GM/50 ML BAG IVPB (08:22)
[2025-08-27] MEDS: cycloSPORINE 0.4 ML OPHTH SOLUTION 1 DROP EACH EYE ×2 (08:22→21:21)
[2025-08-27] MEDS: POTASSIUM CITRATE 5 MEQ TAB CR 15 MEQ PO ×2 (08:24→16:20)
[2025-08-27] MEDS: LACOSAMIDE (*CRX) 100 MG TABLET PO (08:25)
[2025-08-27] MEDS: SUCRALFATE 1 GM TABLET PO ×2 (08:25→16:20)
[2025-08-27] MEDS: PROPRANOLOL HCL ER 60 MG CAPSULE 120 MG PO (08:25)
[2025-08-27] MEDS: ASPIRIN 81 MG ENTERIC TABLET PO (08:25)
[2025-08-27] MEDS: ALPRAZolam (*CRX) 0.5 MG TABLET 1 MG PO ×2 (08:25→16:20)
--- NOTE | 2025-08-27 12:38 | PM.CNCAR ---
Assessment and Plan Assessment and plan (1) Chest pain: Qualifiers: Chest pain type: unspecified Qualified Code(s): R07.9 - Chest pain, unspecified Code(s): R07.9 - Chest pain, unspecified Status: Acute Plan Atypical chest pain with negative cardiac enzymes and EKG changes Proximal atrial fibrillation currently in sinus rhythm MARIA ANTONIA likely hypovolemia improving Diabetes mellitus type 2 Plan Nuclear stress Test Aspirin 81 mg daily Lipitor 20 mg daily Amlodipine 5 mg daily Event monitor on discharge TTE History of Present Illness History of Present Illness Consult date/time: 08/27/25 12:38 Reason For Visit: MARIA ANTONIA,CP,TIA Narrative: Patient presents to the hospital was multiple symptoms including numbness in left side of the face and body, diarrhea, decreased oral intake, increased heart rate with history of atrial fibrillation. She also was complaining of chest pain left-sided nonradiating aching. There was no precipitating or relieving factors. Review of Systems Review of Systems: All systems reviewed & are unremarkable except as noted in HPI and below PMFSH Past Medical History Medical History (Updated 08/26/25 @ 18:32 by Armida Parker APRN) PTSD (post-traumatic stress disorder) Depression Anxiety History of shingles Renal disease History of kidney stones Sleep apnea Emphysema lung DVT (deep venous thrombosis) Atrial fibrillation CVA (cerebral vascular accident) residual dysarthria and balance disturbance CAD (coronary artery disease) Dyslipidemia GERD (gastroesophageal reflux disease) Non-ST elevated myocardial infarction Fibromyalgia Asthma Hypertension Diabetes mellitus Surgical History Surgical History History of section History of tonsillectomy History of appendectomy History of cholecystectomy History of percutaneous coronary intervention Family History Family History Other Family history of pancreatic cancer Social History Social History Smoking status: Never smoker Alcohol intake: former Substance use: never Substance use type: does not use Lack of Transportation: YES Lack of Food: Sometimes True Current Housing: I Do Not Have Housing Concerned About Future Housing: YES Difficulty Paying Gas/Electric Bills: YES Difficulty Paying for Meds: No Currently Unemployed: No Education: High School Diploma/GED Difficulty w/ Childcare or Family Care: No Spiritual care concerns: No Meds Home Medications and Allergies Home Medications ?Medication ?Instructions ?Recorded ?Confirmed ?Type amlodipine 5 mg tablet 5 mg PO DAILY 12/23/21 08/26/25 History aspirin 81 mg PO DAILY 12/23/21 08/26/25 History atorvastatin 20 mg tablet 20 mg PO HS 12/23/21 08/26/25 History cyclobenzaprine 10 mg tablet 10 mg PO TID PRN Back Pain 12/23/21 08/26/25 History metformin 500 mg tablet 500 mg PO BIDWM 12/23/21 08/26/25 History potassium citrate 15 mEq (1,620 15 meq PO BIDWM 12/23/21 08/26/25 History mg) tablet,extended release propranolol 80 mg capsule,24 120 mg PO DAILY 12/23/21 08/26/25 History hr,extended release ropinirole 1 mg tablet 2 mg PO BID 12/23/21 08/26/25 History albuterol sulfate 90 mcg/actuation 2 inh inhalation Q4-6H PRN 11/06/22 08/26/25 History aerosol inhaler Shortness Of Breath Or Wheezing alprazolam 1 mg tablet 1 mg PO TID 11/06/22 08/26/25 History ondansetron HCl 4 mg tablet 4 mg PO Q8H PRN Nausea And Vomiting 11/06/22 08/26/25 History valacyclovir 500 mg tablet 500 mg PO BID PRN Outbreak 11/06/22 08/26/25 History zolpidem 10 mg tablet 10 mg PO HS 11/06/22 08/26/25 History Arnuity Ellipta 1 inh inhalation DAILY 01/12/24 08/26/25 History cyclosporine 0.05 % eye drops in a 1 drp EACH EYE BID 01/12/24 08/26/25 History dropperette (Restasis) fluticasone furoate 200 1 inh inhalation DAILY 01/12/24 08/26/25 History mcg/actuation blister powder for inhalation (Arnuity Ellipta) lacosamide 100 mg tablet 100 mg PO DAILY 01/12/24 08/26/25 History meclizine 25 mg tablet 25 mg PO TID PRN Dizziness 01/12/24 08/26/25 History trazodone 100 mg tablet 100 mg PO HS 01/12/24 08/26/25 History pantoprazole 40 mg tablet,delayed 40 mg PO QHS #30 tabs 01/14/24 08/26/25 Rx release sucralfate 1 gram tablet (Carafate) 1 g PO TID #90 tabs 01/14/24 08/26/25 Rx Allergies Allergy/AdvReac Type Severity Reaction Status Date / Time cephalexin (Keflex) Allergy Intermediate Unknown Verified 11/10/22 15:00 Penicillins Allergy Intermediate Unknown Verified 11/10/22 15:00 Cephalosporins Allergy Mild Unknown Verified 11/10/22 15:00 pregabalin (From Lyrica) Allergy Unknown Verified 11/10/22 15:00 sulfamethoxazole (From Allergy rash Verified 11/10/22 15:00 Bactrim) trimethoprim (From Bactrim) Allergy rash Verified 11/10/22 15:00 acetaminophen (From Tylenol) AdvReac Severe Other Verified 08/26/25 15:25 TAPE Allergy Mild Unknown Uncoded 11/06/22 11:08 Vital Signs Vital Signs - 24 hr 08/26/25 13:02 08/26/25 13:46 08/26/25 14:32 Temperature Pulse Rate 83 83 93 Respiratory Rate 14 13 13 Blood Pressure 91/75 L 111/76 113/94 H Pulse Oximetry 99 98 Oxygen Delivery Fraction of Inspired Oxygen 08/26/25 15:16 08/26/25 16:20 08/26/25 17:52 Temperature 36.7 C 36.7 C Pulse Rate 80 81 76 Respiratory Rate 17 16 Blood Pressure 128/81 112/57 L Pulse Oximetry 99 98 Oxygen Delivery Fraction of Inspired Oxygen 08/26/25 19:59 08/26/25 20:00 08/26/25 20:00 Temperature 36.6 C Pulse Rate 74 73 Respiratory Rate 15 Blood Pressure 109/67 Pulse Oximetry 95 Oxygen Delivery Room Air Fraction of Inspired Oxygen 08/26/25 22:00 08/27/25 00:00 08/27/25 00:00 Temperature 36.6 C Pulse Rate 70 72 Respiratory Rate 14 Blood Pressure 110/56 L Pulse Oximetry 98 Oxygen Delivery Room Air Fraction of Inspired Oxygen 08/27/25 00:00 08/27/25 02:00 08/27/25 03:49 Temperature 36.8 C Pulse Rate 68 80 82 Respiratory Rate 20 Blood Pressure 119/76 Pulse Oximetry 94 Oxygen Delivery Fraction of Inspired Oxygen 08/27/25 04:00 08/27/25 04:00 08/27/25 06:00 Temperature Pulse Rate 81 69 Respiratory Rate Blood Pressure Pulse Oximetry Oxygen Delivery Room Air Fraction of Inspired Oxygen 08/27/25 08:00 08/27/25 08:00 08/27/25 08:00 Temperature 36.9 C Pulse Rate 93 91 Respiratory Rate 18 18 Blood Pressure 122/83 Pulse Oximetry 96 97 97 Oxygen Delivery Room Air Room Air Fraction of Inspired Oxygen 21 21 08/27/25 08:00 08/27/25 08:25 08/27/25 10:00 Temperature Pulse Rate 91 93 91 Respiratory Rate Blood Pressure Pulse Oximetry Oxygen Delivery Fraction of Inspired Oxygen 08/27/25 11:49 Temperature 36.9 C Pulse Rate 69 Respiratory Rate 22 H Blood Pressure 131/76 Pulse Oximetry 96 Oxygen Delivery Fraction of Inspired Oxygen Exam Const: General: comfortable and no acute distress Other: Able to lie flat HENMT: Face/Nose/Sinus: Normal nares present and no epistaxis Mouth: Yes moist mucous membranes Eyes: Sclera: sclerae normal Pupils: Equal, round and reactive pupils present Neck: Neck: supple and no JVD Carotids: no bruits Resp: Auscultation: clear to auscultation bilaterally and lung sounds not diminished Other: No chest wall tenderness Cardio: Rate: regular rate Rhythm: regular rhythm Heart sounds: no gallops, no murmurs and no rubs GI: GI Palp: Yes Soft to palpation and No Tenderness to palpation present (GI) Auscultation: normal bowel sounds Skin: General skin exam: normal color, rashes and/or lesions noted and no erythema Other: Warm Neuro: Cranial nerves: Yes Equal, round and reactive pupils present Speech: normal speech Other: No obvious focal deficit or facial asymmetry Extrem: General: no edema Other: Normal capillary refills Intact distal pulses. Results Labs and Meds 08/27/25 03:52 08/27/25 03:52 Lab results: Cardiac Enzymes 08/26/25 08/26/25 Range/Units 13:49 17:19 Troponin I 0.013 0.013 (0.000-0.034) ng/mL Coagulation 08/26/25 Range/Units 13:49 PT 13.7 (11.1-14.7) Seconds APTT 25.1 (22.3-36.8) Seconds Lipids 08/27/25 Range/Units 03:52 Triglycerides 212 H (<150) mg/dL Cholesterol 107 (0-200) mg/dL CBC 08/27/25 Range/Units 03:52 WBC 5.7 (4.5-10.0) K/mm3 RBC 3.64 L (4.2-5.4) M/mm3 Hgb 10.8 L (12.0-15.0) g/dL Hct 32.3 L (37.0-47.0) % Plt Count 203 (150-375) k/mm3 Lymph # (Auto) 1.60 (0.9-3.2) K/mm3 [place] # (Auto) 0.4 (0.1-0.6) K/mm3 Eos # (Auto) 0.0 (0-0.3) K/mm3 Baso # (Auto) 0.0 (0.0-0.1) K/mm3 Comprehensive Metabolic Panel 08/26/25 08/27/25 Range/Units 17:19 03:52 Sodium 132 L 133 L (137-145) mmol/L Potassium 3.3 L 4.0 (3.4-5.0) mmol/L Chloride 95 L 101 (98-107) mmol/L Carbon Dioxide 25 25 (22-30) mmol/L BUN 20 H 14 D (7-17) mg/dL Creatinine 1.39 H 0.93 (0.7-1.0) mg/dL Glucose 120 H 111 H (65-110) mg/dL Calcium 9.1 8.9 (8.4-10.2) mg/dL Intake and Output 08/26/25 08/27/25 08/27/25 23:59 07:59 15:59 Intake Total 1480 410 240 Output Total 810 300 Balance 1480 -400 -60 Intake: IV 1000 Sodium Chloride 0.9% IV 1,000 1000 ml @ 150 mls/hr IV CONT .Q6H40M STA Rx#:[id number] Oral 480 410 240 Output: Urine 810 300 Other: Number of Bowel Movements Today 0 Patient Weight 08/27/25 23:59 Weight 64.5 kg
--- NOTE | 2025-08-27 12:42 | P.PNIM_ITS ---
Assessment and Plan Assessment and Plan (1) Transient weakness of left leg: Code(s): R29.898 - Other symptoms and signs involving the musculoskeletal system Status: Acute Assessment and Plan: Transient left lower extremity weakness and left facial droop 3 days MIL[employer] that lasted for approximately 1 hour that resolved without intervention. Previous history of TIA and stroke with residual dysarthria and balance disturbance. Patient is unsure when her stroke last was but estimates it was in the last 5 years. * 08/27 no recurrent symptoms, continue aspirin (2) Chest pain: Qualifiers: Chest pain type: unspecified Qualified Code(s): R07.9 - Chest pain, unspecified Code(s): R07.9 - Chest pain, unspecified Status: Acute Assessment and Plan: Intermittent chest pain. Initially resolved with hydroxyzine. Had episode today that was midsternal with radiation into her left upper extremity and right neck. EKG completed in the ED and reviewed, no significant elevations, mild depressions in the lateral leads. Follows with a clinical pharmacologist at [facility] in [place] - troponin 0.013 x 3, flat. - no significant changes on EKG compared to previous, will repeat - palpitations and shortness of breath occurring with the chest pain, could be episodes of AFib. On telemetry. - cardiology consulting * 08/27 No further chest pain and unremarkable telemetry * 08/27 Echocardiogram pending (3) MARIA ANTONIA (acute kidney injury): Code(s): N17.9 - Acute kidney failure, unspecified Status: Acute Assessment and Plan: Creatinine 1.83, BUN 25, GFR 28 upon admission on 08/26. Creatinine previously 0.7 and GFR >60 in December 2023. We reportedly has had 7 episodes of diarrhea in the last 24 hours. Suspect MARIA ANTONIA secondary to hypovolemia. Will give IV fluids over the next 24 hours, if no improvement consider further workup in nephrology consultation. - LR x1L -> NS 150 mL/hr x1L * 08/27 Creatinine 0.93 (4) Acute hyponatremia: Code(s): E87.1 - Hypo-osmolality and hyponatremia Status: Acute Assessment and Plan: Na 129. No current alcohol use. Reviewed home medications, currently on lacosamide and Ambien which could be contributing. Patient also had 7 episodes of diarrhea in the last 24 hours which could additionally be affecting her sodium levels. - check serum osmolality, urine osmolality, urine sodium, protein to creatinine ratio, urine creatinine - recheck BMP this evening - NS 150 mL/hour x1L * 08/27 133 (5) Diabetes mellitus: Qualifiers: Diabetes mellitus type: type 2 Diabetes mellitus exterminator helper insulin use: without exterminator helper use Diabetes mellitus complication status: without complication Qualified Code(s): E11.9 - Type 2 diabetes mellitus without complications Code(s): E11.9 - Type 2 diabetes mellitus without complications Status: Chronic Assessment and Plan: - hypoglycemia protocol - POC blood glucose ACHS - home medication: Hold metformin in case of need for contrast - correct regimen ordered - low dose TIDWM - A1C 6.5% in 2022, 08/26/2025 6.1% (6) Essential hypertension: Code(s): I10 - Essential (primary) hypertension Status: Acute Assessment and Plan: - 08/27 131/76 - continue home medications: Amlodipine 5 mg daily, propranolo ERl 120 mg daily (7) Atrial fibrillation: Qualifiers: Atrial fibrillation type: paroxysmal Qualified Code(s): I48.0 - Paroxysmal atrial fibrillation Code(s): I48.91 - Unspecified atrial fibrillation Status: Chronic Assessment and Plan: - continue propranolol 120 mg daily - telemetry monitoring * Continue ASA 81 mg daily * 08/27 unable to locate any documentation of any episodes of atrial fibrillation in [facility] * 08/27 2022 record scanned in from [facility] where she sees her clinical pharmacologist does not have any documentation of the diagnosis of atrial fibrillation, though she does have a diagnosis of prior NSTEMI (8) Hyperlipidemia: Qualifiers: Hyperlipidemia type: unspecified Qualified Code(s): E78.5 - Hyperlipidemia, unspecified Code(s): E78.5 - Hyperlipidemia, unspecified Status: Chronic Assessment and Plan: - continue home medication: Atorvastatin 20 mg daily Subjective Date/time seen: 08/27/25 12:42 Interval history: Admitted 08/26 with left-sided weakness episodes associated with numbness in the left face and left leg. Also had intermittent chest discomfort described as aching. Also had 7 loose stools in the 24 hours prior to admission. Had negative EKG, troponins, CTA chest, CT brain, CTA carotids and cerebral arteries. 08/27 tolerated diet. Denied chest pain or shortness of breath. Admits to 5 trips to the bedside commode with some loose stool. Denied bleeding. Review of Systems Review of Systems: All systems reviewed & are unremarkable except as noted in HPI and below Exam Narrative: HEENT: PERRL, sclerae nonicteric, pharyngeal mucosa pink and intact NECK: No JVD CHEST: Clear to auscultation, normal effort HEART: NL S1/S2, regular, no murmur ABDOMEN: BS+, soft, nontender, no mass, no bruits EXTREMITIES: No cyanosis, edema, or clubbing NEUROLOGIC: CN intact and symmetric to inspection, hog counter dorsiflexion plantar flexion and thigh flexion all intact MUSCULOSKELETAL: No deformities to inspection PSYCH: Alert, oriented to person, place, and time Objective Data Vital Signs Vital Signs: Vital Signs - 24 hr 08/26/25 13:02 08/26/25 13:46 08/26/25 14:32 Temperature Pulse Rate 83 83 93 Respiratory Rate 14 13 13 Blood Pressure 91/75 L 111/76 113/94 H Pulse Oximetry 99 98 Oxygen Delivery Fraction of Inspired Oxygen 08/26/25 15:16 08/26/25 16:20 08/26/25 17:52 Temperature 98.1 F 98.1 F Pulse Rate 80 81 76 Respiratory Rate 17 16 Blood Pressure 128/81 112/57 L Pulse Oximetry 99 98 Oxygen Delivery Fraction of Inspired Oxygen 08/26/25 19:59 08/26/25 20:00 08/26/25 20:00 Temperature 97.9 F Pulse Rate 74 73 Respiratory Rate 15 Blood Pressure 109/67 Pulse Oximetry 95 Oxygen Delivery Room Air Fraction of Inspired Oxygen 08/26/25 22:00 08/27/25 00:00 08/27/25 00:00 Temperature 97.9 F Pulse Rate 70 72 Respiratory Rate 14 Blood Pressure 110/56 L Pulse Oximetry 98 Oxygen Delivery Room Air Fraction of Inspired Oxygen 08/27/25 00:00 08/27/25 02:00 08/27/25 03:49 Temperature 98.2 F Pulse Rate 68 80 82 Respiratory Rate 20 Blood Pressure 119/76 Pulse Oximetry 94 Oxygen Delivery Fraction of Inspired Oxygen 08/27/25 04:00 08/27/25 04:00 08/27/25 06:00 Temperature Pulse Rate 81 69 Respiratory Rate Blood Pressure Pulse Oximetry Oxygen Delivery Room Air Fraction of Inspired Oxygen 08/27/25 08:00 08/27/25 08:00 08/27/25 08:00 Temperature 98.5 F Pulse Rate 93 91 Respiratory Rate 18 18 Blood Pressure 122/83 Pulse Oximetry 96 97 97 Oxygen Delivery Room Air Room Air Fraction of Inspired Oxygen 21 21 08/27/25 08:00 08/27/25 08:25 08/27/25 10:00 Temperature Pulse Rate 91 93 91 Respiratory Rate Blood Pressure Pulse Oximetry Oxygen Delivery Fraction of Inspired Oxygen 08/27/25 11:49 Temperature 98.4 F Pulse Rate 69 Respiratory Rate 22 H Blood Pressure 131/76 Pulse Oximetry 96 Oxygen Delivery Fraction of Inspired Oxygen Intake/Output Intake/Output: Intake & Output 08/24/25 08/25/25 08/26/25 08/27/25 23:59 23:59 23:59 23:59 Intake Total 2480 650 Output Total 1110 Balance 2480 -460 Meds/Results Medications: Active Medications Generic Name Dose Route Start Last Admin Trade Name Freq PRN Reason Stop Dose Admin Albuterol 2 puff 08/26/25 18:26 Albuterol Sulfate (*Sp) Aerosol 1 Puff INHALATION Q4HRT PRN Shortness Of Breath Or Wheezing Alprazolam 1 mg 08/27/25 09:00 08/27/25 08:25 Alprazolam (*Crx) 0.5 Mg Tablet PO 1 mg TID BISHNU Administration Amlodipine Besylate 5 mg 08/27/25 09:00 08/27/25 08:26 Amlodipine Besylate 5 Mg Tablet PO 5 mg DAILY BISHNU Administration Aspirin 81 mg 08/27/25 09:00 08/27/25 08:25 Aspirin 81 Mg Enteric Tablet PO 81 mg QAM BISHNU Administration Atorvastatin Calcium 20 mg 08/26/25 21:00 08/26/25 21:24 Atorvastatin 20 Mg Tablet PO 20 mg HS BISHNU Administration Cyclobenzaprine HCl 10 mg 08/26/25 18:26 Cyclobenzaprine Hcl 10 Mg Tablet PO TID PRN Back Pain Cyclosporine 1 drop 08/26/25 21:00 08/27/25 08:22 Cyclosporine 0.4 Ml Ophth Solution EACH EYE 1 drop Q12HR BISHNU Administration Dextrose 12.5 gm 08/26/25 18:29 Dextrose 50% 25 Gm/50 Ml Syringe IV PUSH PRN PRN Hypoglycemia Protocol Fluticasone Propionate 2 puff 08/26/25 20:00 08/27/25 08:01 Fluticasone Prop 220 Mcg (*Sp) 12 Gm Inhaler INHALATION 2 puff Q12HRT BISHNU Administration Glucagon 1 mg 08/26/25 18:29 Glucagon For Inj 1 Mg Vial IM PRN PRN Hypoglycemia Protocol Glucose 15 gm 08/26/25 18:29 Glucose Oral Gel 15 Gm Of Glucse In 37.5 Gm Tube PO PRN PRN Hypoglycemia Protocol Dextrose 1,000 mls @ 100 mls/hr 08/26/25 18:29 Dextrose 5% 1,000 Ml IVPB PRN PRN Hypoglycemia Protocol Ibuprofen 400 mg 08/26/25 22:00 08/26/25 22:11 Ibuprofen 400 Mg Tablet PO 400 mg Q6H PRN Administration Pain Rated 1-3 Insulin Aspart 2 - 5 units 08/27/25 08:00 08/27/25 11:39 Insulin Aspart (*Bkc) 100 Units/Ml SUB-Q Not Given TIDWM BISHNU Protocol Lacosamide 100 mg 08/27/25 09:00 08/27/25 08:25 Lacosamide (*Crx) 100 Mg Tablet PO 100 mg DAILY BISHNU Administration Meclizine HCl 25 mg 08/26/25 18:26 Meclizine Hcl 25 Mg Tablet PO TID PRN Dizziness Pantoprazole Sodium 40 mg 08/26/25 21:00 08/26/25 21:24 Pantoprazole 40 Mg Tablet PO 40 mg QHS BISHNU Administration Potassium Citrate 15 meq 08/27/25 08:00 08/27/25 08:24 Potassium Citrate 5 Meq Tab Cr PO 15 meq BIDWM BISHNU Administration Propranolol HCl 120 mg 08/27/25 09:00 08/27/25 08:25 Propranolol Hcl Er 60 Mg Capsule PO 120 mg QAM BISHNU Administration Ropinirole HCl 2 mg 08/26/25 21:00 08/27/25 08:25 Ropinirole Hcl 1 Mg Tablet PO 2 mg Q12HR BISHNU Administration Sucralfate 1 gm 08/27/25 09:00 08/27/25 08:25 Sucralfate 1 Gm Tablet PO 1 gm TID BISHNU Administration Trazodone HCl 100 mg 08/26/25 21:00 08/26/25 21:24 Trazodone Hcl 50 Mg Tablet PO 100 mg HS BISHNU Administration Valacyclovir HCl 500 mg 08/26/25 18:26 Valacyclovir Hcl 500 Mg Tablet PO Q12HR PRN Outbreak Zolpidem Tartrate 10 mg 08/26/25 21:00 08/26/25 21:24 Zolpidem Tartrate (*Crx) 5 Mg Tablet PO 10 mg HS BISHNU Administration Radiology Results: ITS Impressions Head/Neck CTA 08/26/25 12:26 IMPRESSION: CT HEAD: 1. No acute intracranial findings. CTA NECK: 1. No ICA stenosis or other acute arterial abnormality. CTA HEAD: 1. No large vessel arterial occlusive disease or other acute findings. 2. No aneurysms. Chest CTA 08/26/25 12:39 IMPRESSION: 1. No PE or other acute cardiopulmonary findings. Labs Labs: Laboratory Results - last 24 hr 08/26/25 08/26/25 08/26/25 13:49 16:34 17:19 WBC RBC Hgb Hct MCV MCH MCHC RDW Plt Count MPV Immature Gran % (Auto) Neut % (Auto) Lymph % (Auto) [place] % (Auto) Eos % (Auto) Baso % (Auto) Lymph # (Auto) [place] # (Auto) Eos # (Auto) Baso # (Auto) Abs Immat Gran (auto) Absolute Neuts (auto) Absolute Nucleated RBC Nucleated RBC % PT 13.7 INR 1.0 APTT 25.1 Sodium 132 L Potassium 3.3 L Chloride 95 L Carbon Dioxide 25 Anion Gap 12 BUN 20 H Creatinine 1.39 H Estim Creat Clear Calc 30 Estimated GFR 39 L Glucose 120 H POC Capillary Glucose 119 H Hemoglobin A1c Calcium 9.1 Magnesium Troponin I 0.013 0.013 Triglycerides Cholesterol LDL Cholesterol Direct HDL Direct U Random Total Protein Ur Random Sodium Urine Creatinine Protein/Creat Ratio 2 08/26/25 08/26/25 08/26/25 19:51 20:11 20:11 WBC RBC Hgb Hct MCV MCH MCHC RDW Plt Count MPV Immature Gran % (Auto) Neut % (Auto) Lymph % (Auto) [place] % (Auto) Eos % (Auto) Baso % (Auto) Lymph # (Auto) [place] # (Auto) Eos # (Auto) Baso # (Auto) Abs Immat Gran (auto) Absolute Neuts (auto) Absolute Nucleated RBC Nucleated RBC % PT INR APTT Sodium Potassium Chloride Carbon Dioxide Anion Gap BUN Creatinine Estim Creat Clear Calc Estimated GFR Glucose POC Capillary Glucose 148 H Hemoglobin A1c Calcium Magnesium Troponin I Triglycerides Cholesterol LDL Cholesterol Direct HDL Direct U Random Total Protein 7 Ur Random Sodium 47 Urine Creatinine 48.1 46.8 Protein/Creat Ratio 2 0.15 08/27/25 08/27/25 08/27/25 03:52 06:57 11:14 WBC 5.7 RBC 3.64 L Hgb 10.8 L Hct 32.3 L MCV 88.7 MCH 29.7 MCHC 33.4 RDW 12.6 Plt Count 203 MPV 9.9 Immature Gran % (Auto) 0.2 Neut % (Auto) 63.2 Lymph % (Auto) 28.3 [place] % (Auto) 7.4 Eos % (Auto) 0.5 Baso % (Auto) 0.4 Lymph # (Auto) 1.60 [place] # (Auto) 0.4 Eos # (Auto) 0.0 Baso # (Auto) 0.0 Abs Immat Gran (auto) 0.01 Absolute Neuts (auto) 3.6 Absolute Nucleated RBC 0.000 Nucleated RBC % 0.0 PT INR APTT Sodium 133 L Potassium 4.0 Chloride 101 Carbon Dioxide 25 Anion Gap 7 BUN 14 D Creatinine 0.93 Estim Creat Clear Calc 44 Estimated GFR > 60 Glucose 111 H POC Capillary Glucose 106 H 185 H Hemoglobin A1c 6.1 H Calcium 8.9 Magnesium 1.2 L Troponin I Triglycerides 212 H Cholesterol 107 LDL Cholesterol Direct < 30 HDL Direct 36 U Random Total Protein Ur Random Sodium Urine Creatinine Protein/Creat Ratio 2
--- NOTE | 2025-08-27 13:09 | WPDNEURCNPN ---
Consult date: 08/27/25 HPI: Garima Perry is a 60 year old female admitted to the hospital through the emergency room for the complaints of 1. Chest pain with palpitation in addition to the history of atrial fibrillation in the past 2. History of DVTs 3. History of TIAs with particular mention of 1hour of left-sided facial droop and left-sided facial weakness about 3 days ago which lasted for about 1hour. She has been taking multiple medications particularly 1. Amlodipine 5mg daily 2. Aspirin 81mg daily 3. Atorvastatin 20mg daily 4. Cyclobenzaprine 10mg 3 times a day p.r.n. for the back pain 5. Metformin 500mg b.i.d. 6. Propranolol 120mg daily 7. Ropinirole 2mg b.i.d. 8. Alprazolam 1mg 3 times a day 9. Valacyclovir 500mg b.i.d. for outbreak p.r.n. 10. Lacosamide 100mg daily 11. Trazodone 100mg at night. She has multiple allergies as outlined. She carries a diagnosis of 1. Posttraumatic stress disorder with anxiety and depression 2. Sleep apnea 3. Atrial fibrillation with history of stroke in the past and residual dysarthria and balance difficulties 4. Fibromyalgia 5. Hypertension 6. Diabetes mellitus 7. GERD. She has undergone percutaneous coronary intervention in the past. She is never a smoker in formalin on-call 90, on initial evaluation in the emergency room vital signs were normal CBC was normal , blood studies revealed BUN 25, in 1.83, urine positive for benzodiazepine, negative CT scan of the head for the bleed, negative CTA of the head without any stenosis or aneurysm, and negative chest CTA for the pulmonary emboli. Cardiology consult has already been obtained. As per the documentation she has atypical chest pain with negative cardiac enzymes and without any EKG changes as far as the atrial fibrillation is concerned she is at present in sinus rhythm nuclear stress test has been ordered and she has been continued on aspirin, Lipitor, amlodipine, with instruction to have the event monitor on discharge. Review of Systems Review of Systems: All systems reviewed & are unremarkable except as noted in HPI and below PMFSH Past Medical History Medical History PTSD (post-traumatic stress disorder) Depression Anxiety History of shingles Renal disease History of kidney stones Sleep apnea Emphysema lung DVT (deep venous thrombosis) Atrial fibrillation CVA (cerebral vascular accident) residual dysarthria and balance disturbance CAD (coronary artery disease) Dyslipidemia GERD (gastroesophageal reflux disease) Non-ST elevated myocardial infarction Fibromyalgia Asthma Hypertension Diabetes mellitus Surgical History Surgical History History of section History of tonsillectomy History of appendectomy History of cholecystectomy History of percutaneous coronary intervention Family History Family History Other Family history of pancreatic cancer Social History Social History Smoking status: Never smoker Alcohol intake: former Substance use: never Substance use type: does not use Lack of Transportation: YES Lack of Food: Sometimes True Current Housing: I Do Not Have Housing Concerned About Future Housing: YES Difficulty Paying Gas/Electric Bills: YES Difficulty Paying for Meds: No Currently Unemployed: No Education: High School Diploma/GED Difficulty w/ Childcare or Family Care: No Spiritual care concerns: No Meds Home Medications and Allergies Home Medications ?Medication ?Instructions ?Recorded ?Confirmed ?Type amlodipine 5 mg tablet 5 mg PO DAILY 12/23/21 08/26/25 History aspirin 81 mg PO DAILY 12/23/21 08/26/25 History atorvastatin 20 mg tablet 20 mg PO HS 12/23/21 08/26/25 History cyclobenzaprine 10 mg tablet 10 mg PO TID PRN Back Pain 12/23/21 08/26/25 History metformin 500 mg tablet 500 mg PO BIDWM 12/23/21 08/26/25 History potassium citrate 15 mEq (1,620 15 meq PO BIDWM 12/23/21 08/26/25 History mg) tablet,extended release propranolol 80 mg capsule,24 120 mg PO DAILY 12/23/21 08/26/25 History hr,extended release ropinirole 1 mg tablet 2 mg PO BID 12/23/21 08/26/25 History albuterol sulfate 90 mcg/actuation 2 inh inhalation Q4-6H PRN 11/06/22 08/26/25 History aerosol inhaler Shortness Of Breath Or Wheezing alprazolam 1 mg tablet 1 mg PO TID 11/06/22 08/26/25 History ondansetron HCl 4 mg tablet 4 mg PO Q8H PRN Nausea And Vomiting 11/06/22 08/26/25 History valacyclovir 500 mg tablet 500 mg PO BID PRN Outbreak 11/06/22 08/26/25 History zolpidem 10 mg tablet 10 mg PO HS 11/06/22 08/26/25 History Arnuity Ellipta 1 inh inhalation DAILY 01/12/24 08/26/25 History cyclosporine 0.05 % eye drops in a 1 drp EACH EYE BID 01/12/24 08/26/25 History dropperette (Restasis) fluticasone furoate 200 1 inh inhalation DAILY 01/12/24 08/26/25 History mcg/actuation blister powder for inhalation (Arnuity Ellipta) lacosamide 100 mg tablet 100 mg PO DAILY 01/12/24 08/26/25 History meclizine 25 mg tablet 25 mg PO TID PRN Dizziness 01/12/24 08/26/25 History trazodone 100 mg tablet 100 mg PO HS 01/12/24 08/26/25 History pantoprazole 40 mg tablet,delayed 40 mg PO QHS #30 tabs 01/14/24 08/26/25 Rx release sucralfate 1 gram tablet (Carafate) 1 g PO TID #90 tabs 01/14/24 08/26/25 Rx Allergies Allergy/AdvReac Type Severity Reaction Status Date / Time cephalexin (Keflex) Allergy Intermediate Unknown Verified 11/10/22 15:00 Penicillins Allergy Intermediate Unknown Verified 11/10/22 15:00 Cephalosporins Allergy Mild Unknown Verified 11/10/22 15:00 pregabalin (From Lyrica) Allergy Unknown Verified 11/10/22 15:00 sulfamethoxazole (From Allergy rash Verified 11/10/22 15:00 Bactrim) trimethoprim (From Bactrim) Allergy rash Verified 11/10/22 15:00 acetaminophen (From Tylenol) AdvReac Severe Other Verified 08/26/25 15:25 TAPE Allergy Mild Unknown Uncoded 11/06/22 11:08 Vital Signs Vital Signs - 24 hr 08/26/25 13:46 08/26/25 14:32 08/26/25 15:16 Temperature 36.7 C Pulse Rate 83 93 80 Respiratory Rate 13 13 17 Blood Pressure 111/76 113/94 H 128/81 Pulse Oximetry 98 99 Oxygen Delivery Fraction of Inspired Oxygen 08/26/25 16:20 08/26/25 17:52 08/26/25 19:59 Temperature 36.7 C 36.6 C Pulse Rate 81 76 74 Respiratory Rate 16 15 Blood Pressure 112/57 L 109/67 Pulse Oximetry 98 95 Oxygen Delivery Fraction of Inspired Oxygen 08/26/25 20:00 08/26/25 20:00 08/26/25 22:00 Temperature Pulse Rate 73 70 Respiratory Rate Blood Pressure Pulse Oximetry Oxygen Delivery Room Air Fraction of Inspired Oxygen 08/27/25 00:00 08/27/25 00:00 08/27/25 00:00 Temperature 36.6 C Pulse Rate 72 68 Respiratory Rate 14 Blood Pressure 110/56 L Pulse Oximetry 98 Oxygen Delivery Room Air Fraction of Inspired Oxygen 08/27/25 02:00 08/27/25 03:49 08/27/25 04:00 Temperature 36.8 C Pulse Rate 80 82 Respiratory Rate 20 Blood Pressure 119/76 Pulse Oximetry 94 Oxygen Delivery Room Air Fraction of Inspired Oxygen 08/27/25 04:00 08/27/25 06:00 08/27/25 08:00 Temperature 36.9 C Pulse Rate 81 69 93 Respiratory Rate 18 Blood Pressure 122/83 Pulse Oximetry 96 Oxygen Delivery Fraction of Inspired Oxygen 08/27/25 08:00 08/27/25 08:00 08/27/25 08:00 Temperature Pulse Rate 91 91 Respiratory Rate 18 Blood Pressure Pulse Oximetry 97 97 Oxygen Delivery Room Air Room Air Fraction of Inspired Oxygen 21 21 08/27/25 08:25 08/27/25 10:00 08/27/25 11:49 Temperature 36.9 C Pulse Rate 93 91 69 Respiratory Rate 22 H Blood Pressure 131/76 Pulse Oximetry 96 Oxygen Delivery Fraction of Inspired Oxygen 08/27/25 12:00 Temperature Pulse Rate 71 Respiratory Rate Blood Pressure Pulse Oximetry Oxygen Delivery Fraction of Inspired Oxygen Results Labs 08/27/25 03:52 08/27/25 03:52 Labs: Short CBC 08/27/25 Range/Units 03:52 WBC 5.7 (4.5-10.0) K/mm3 Hgb 10.8 L (12.0-15.0) g/dL Hct 32.3 L (37.0-47.0) % Plt Count 203 (150-375) k/mm3 BMP 08/26/25 08/27/25 17:19 03:52 Sodium 132 L 133 L Potassium 3.3 L 4.0 Chloride 95 L 101 Carbon Dioxide 25 25 BUN 20 H 14 D Creatinine 1.39 H 0.93 Glucose 120 H 111 H Calcium 9.1 8.9 Cardiac Enzymes 08/26/25 08/26/25 Range/Units 13:49 17:19 Troponin I 0.013 0.013 (0.000-0.034) ng/mL
[2025-08-27] MEDS: ONDANSETRON INJ 4 MG/2 ML VIAL IV PUSH (20:56)
[2025-08-27] MEDS: ATORVASTATIN 20 MG TABLET PO (21:20)
[2025-08-27] MEDS: PANTOPRAZOLE 40 MG TABLET PO (21:20)
[2025-08-27] MEDS: ZOLPIDEM TARTRATE (*CRX) 5 MG TABLET 10 MG PO (21:20)
[2025-08-28] VITALS (11 sets, daily range): BP systolic 125–128; BP diastolic 72–73; PULSE 55–64; RESP 16–20; TEMP 36.6–36.9; O2SAT 96–97
--- NOTE | 2025-08-28 | ECHO_ITS ---
Patient Info Name: Garima Perry Age: 60 years : 1965 Gender: Female Ht: 62 in Wt: 144 lbs BSA: 1.71 m2 HR: 58 bpm BP: 128 / 73 mmHg Technical Quality: Good Exam Date: 08/28/2025 3:03 PM Patient Status: I Admit Date: 08/26/2025 Exam Type: CA echo dop color flow w con Complete two-dimensional, color flow and Doppler transthoracic echocardiogram is performed with contrast to opacify the left ventricle and to improve the deliniation of the left ventricle endocardial borders. Staff Referring Physician: Hemal Lemus Chef: Sarah Hardy Attending Provider: Megan Valderrama MD Contrast/Agitated Saline Contrast/Ag. Saline: Definity Amount: 2.00 ml Existing IV Access: Yes Summary 1. There is normal biventricular size and systolic function. 2. There are no significant valvular abnormalities. Left Ventricle The left ventricle is normal in size and systolic function. The left ventricular ejection fraction is visually estimated to be 60-65%. Right Ventricle The right ventricle is normal in size and systolic function. Left Atria The left atrium is normal size. Right Atria The right atrium is normal size. Atrial Septum The atrial septum is not well visualized. Aortic Valve The aortic valve is trileaflet and opens well. There is no aortic regurgitation. Pulmonic Valve The pulmonic valve is not well visualized. Mitral Valve The mitral valve is normal. There is no mitral regurgitation. Tricuspid Valve The tricuspid valve is grossly normal. Pericardium/Pleural Pericardium is normal in appearance with no evidence for significant pericardial effusion. Inferior Vena Cava Normal inferior vena cava with >50% collapse upon inspiration consistent with normal right atrial pressure, 3 mmHg. Left Ventricular Outflow Tract Name Value Normal LVOT 2D LVOT Diameter 2.0 cm LVOT Doppler LVOT Peak Velocity 106 cm/s LVOT Peak Gradient 4 mmHg LVOT Mean Gradient 3 mmHg LVOT VTI 22 cm LVOT VTI/AV VTI Ratio 0.9 LVOT Stroke Volume 68 ml LVOT CO 4.5 l/min LVOT CI 2.6 l/min/m2 Pulmonic Valve Name Value Normal PV Doppler PV Peak Velocity 76 cm/s PV Peak Gradient 2 mmHg Mitral Valve Name Value Normal MV Doppler MV Peak Gradient 5 mmHg MV Mean Gradient 1 mmHg MV Area (Cont Eq VTI) 2.0 cm2 MV Regurgitation Doppler MR Peak Gradient 108 mmHg MR ERO (PISA) 0.10 cm2 MR Volume (PISA) 19 ml MV Diastolic Function MV E Peak Velocity 80 cm/s MV A Peak Velocity 37 cm/s MV E/A 2.2 MV Decel Time (PW) 91 ms MV Annular TDI MV E/e' (Septal) 10.5 MV E/e' (Lateral) 8.6 MV E/e' (Average) 9.5 Tricuspid Valve Name Value Normal TV Regurgitation Doppler TR Peak Velocity 194 cm/s TR Peak Gradient 13 mmHg Estimated PAP/RSVP RA Pressure 3 mmHg <=5 PA Systolic Pressure 18 mmHg <36 RV Systolic Pressure 18 mmHg <36 Aortic Valve Name Value Normal AV Doppler AV Peak Velocity 122 cm/s AV Peak Gradient 6 mmHg AV Mean Gradient 3 mmHg AV VTI 24 cm AV Area (Cont Eq VTI) 2.8 cm2 >=3.0 AV Area (Cont Eq Kevin) 2.7 cm2 AV DI (Kevin) 0.87 AV Regurgitation 2D LVOT Area 3.1 cm2 Ventricles Name Value Normal LV Dimensions 2D/MM IVS Diastolic Thickness (2D) 1.0 cm 0.6-1.0 LVID Diastole (2D) 4.0 cm 3.8-5.2 LVIW Diastolic Thickness (2D) 0.9 cm 0.6-0.9 LVID Systole (2D) 2.5 cm 2.2-3.5 LVOT Diameter 2.0 cm LV Mass (2D Cubed) 117.53 g 67.00-162.00 LV Mass Index (2D Cubed) 69 g/m2 43-95 Relative Wall Thickness (2D) 0.47 <=0.42 LV Fractional Shortening/Ejection Fraction 2D/MM LV Fractional Shortening (2D) 37 % 27-45 LV EF (2D Teichholz) 67 % LV Diastolic Volume (4C MOD) 72 ml LV EF (4C MOD) 71 % LV Diastolic Volume (2C MOD) 105 ml LV EF (2C MOD) 69 % LV Diastolic Volume (BP MOD) 87 ml 46-106 LV Diastolic Volume Index (BP MOD) 51 ml/m2 29-61 LV Systolic Volume (BP MOD) 26 ml 14-42 LV Systolic Volume Index (BP MOD) 15 ml/m2 8-24 LV EF (BP MOD) 70 % 54-74 LV Diastolic Length (4C) 7.8 cm LV Systolic Length (4C) 6.3 cm LV Stroke Volume (4C MOD) 51 ml Atria Name Value Normal LA Dimensions LA Volume (4C A-L) 35 ml LA Volume (BP A-L) 33 ml RA Dimensions RA Systolic Major [place] Length (4C) 4.4 cm 2.2-2.8 RA Area (4C) 9.6 cm2 <=18.0 Report Signatures
[2025-08-28] MEDS: ONDANSETRON INJ 4 MG/2 ML VIAL IV PUSH (05:25)
[2025-08-28 06:26] LABS: Hematocrit 32.9 % (37.0-47.0); Hemoglobin 11.2 g/dL (12.0-15.0); Mean Corpuscular HGB Conc 34.0 g/dl (32-36); Mean Corpuscular Hemoglobin 30.9 pg (26-34); Mean Corpuscular Volume 90.6 fl (80-100); Platelet Count Result 198 k/mm3 (150-375); Red Blood Count 3.63 M/mm3 (4.2-5.4); White Blood Count 7.2 K/mm3 (4.5-10.0)
[2025-08-28 07:05] LABS: Anion Gap 5 mmol/L (4-12); Blood Urea Nitrogen 7 mg/dL (7-17); Calcium 9.3 mg/dL (8.4-10.2); Carbon Dioxide 32 mmol/L (22-30); Chloride 95 mmol/L (98-107); Estimated CRCL calculation 61 ml/min; Estimated Glomerular Filt Rate > 60; Glucose 141 mg/dL (65-110); Magnesium 1.3 mg/dL (1.6-2.3); Potassium 4.0 mmol/L (3.4-5.0); Sodium 132 mmol/L (137-145)
[2025-08-28] MEDS: FLUTICASONE PROP 220 MCG (*SP) 12 GM INHALER 2 PUFF INHALATION ×2 (07:30→20:51)
[2025-08-28] MEDS: PROPRANOLOL HCL ER 60 MG CAPSULE 120 MG PO (08:58)
[2025-08-28] MEDS: POTASSIUM CITRATE 5 MEQ TAB CR 15 MEQ PO ×2 (08:59→16:32)
[2025-08-28] MEDS: SUCRALFATE 1 GM TABLET PO ×3 (09:00→16:32)
[2025-08-28] MEDS: ASPIRIN 81 MG ENTERIC TABLET PO (09:01)
[2025-08-28] MEDS: LACOSAMIDE (*CRX) 100 MG TABLET PO (09:01)
[2025-08-28] MEDS: ALPRAZolam (*CRX) 0.5 MG TABLET 1 MG PO ×3 (09:01→16:32)
[2025-08-28] MEDS: cycloSPORINE 0.4 ML OPHTH SOLUTION 1 DROP EACH EYE ×2 (09:02→20:49)
--- NOTE | 2025-08-28 11:42 | PM.PNCARD ---
Progress Note: A&P Assessment and Plan (1) Chest pain: Qualifiers: Chest pain type: unspecified Qualified Code(s): R07.9 - Chest pain, unspecified Code(s): R07.9 - Chest pain, unspecified Status: Acute Plan Atypical chest pain with negative cardiac enzymes and EKG changes Paroxysmal atrial fibrillation currently in sinus rhythm MARIA ANTONIA likely hypovolemia improving Diabetes mellitus type 2 Plan She had a negative left heart catheterization in 2021 and negative nuclear stress test in September of 2019 for. Reassured her about these results and reiterated that these tests did not show any evidence of coronary artery disease. He has no plan for repeat ischemic testing during this hospitalization. She can follow up with her established division field inspector. In regards to her atrial fibrillation, she is currently in sinus rhythm. She is not anticoagulated. She states that her established division field inspector ordered anticoagulation for her at 1 point but she no longer takes in she is not sure why. Questionable candidacy for anticoagulation because of reported frequent falls. Will defer to her established division field inspector in regards to need for long-term systemic anticoagulation or candidacy for appendage closure. Aspirin 81 mg daily Lipitor 20 mg daily Amlodipine 5 mg daily Echo is pending Subjective Date/time seen: 08/28/25 11:42 Interval history: Cardiology follow up visit for atrial fibrillation, chest pain Date of service 08/28/2025: Denies chest pain, shortness of breath, palpitations, swelling. Complains not sleeping well last night but otherwise is doing fine. Review of Systems Review of Systems: All systems reviewed & are unremarkable except as noted in HPI and below Exam Const: General: comfortable and no acute distress Other: Able to lie flat HENMT: Face/Nose/Sinus: Normal nares present and no epistaxis Mouth: Yes moist mucous membranes Eyes: Sclera: sclerae normal Pupils: Equal, round and reactive pupils present Neck: Neck: supple and no JVD Carotids: no bruits Resp: Auscultation: clear to auscultation bilaterally and lung sounds not diminished Other: No chest wall tenderness Cardio: Rate: regular rate Rhythm: regular rhythm Heart sounds: no gallops, no murmurs and no rubs GI: Auscultation: normal bowel sounds Skin: General skin exam: normal color, rashes and/or lesions noted and no erythema Other: Warm Neuro: Cranial nerves: Yes Equal, round and reactive pupils present Speech: normal speech Other: No obvious focal deficit or facial asymmetry Extrem: General: no edema Other: Normal capillary refills Intact distal pulses. Objective Data Vital Signs Vital Signs: Vital Signs - 24 hr 08/27/25 11:49 08/27/25 12:00 08/27/25 14:00 Temperature 36.9 C Pulse Rate 69 71 61 Respiratory Rate 22 H Blood Pressure 131/76 Pulse Oximetry 96 Oxygen Delivery 08/27/25 16:00 08/27/25 16:00 08/27/25 19:40 Temperature 36.8 C 36.3 C L Pulse Rate 60 63 59 L Respiratory Rate 20 16 Blood Pressure 96/72 L 124/75 Pulse Oximetry 100 98 Oxygen Delivery 08/27/25 20:00 08/27/25 20:00 08/28/25 00:00 Temperature Pulse Rate 49 L 64 Respiratory Rate Blood Pressure Pulse Oximetry Oxygen Delivery Room Air 08/28/25 04:00 08/28/25 08:00 08/28/25 08:58 Temperature Pulse Rate 55 L 56 L 64 Respiratory Rate Blood Pressure Pulse Oximetry Oxygen Delivery Intake/Output Intake/Output: Intake & Output 08/25/25 08/26/25 08/27/25 08/28/25 23:59 23:59 23:59 23:59 Intake Total 2480 1010 420 Output Total 1110 Balance 2480 -100 420 Meds/Results Medications: Active Medications Generic Name Dose Route Start Last Admin Trade Name Freq PRN Reason Stop Dose Admin Albuterol 2 puff 08/26/25 18:26 Albuterol Sulfate (*Sp) Aerosol 1 Puff INHALATION Q4HRT PRN Shortness Of Breath Or Wheezing Alprazolam 1 mg 08/27/25 09:00 08/28/25 09:01 Alprazolam (*Crx) 0.5 Mg Tablet PO 1 mg TID BISHNU Administration Amlodipine Besylate 5 mg 08/27/25 09:00 08/28/25 09:00 Amlodipine Besylate 5 Mg Tablet PO 5 mg DAILY BISHNU Administration Aspirin 81 mg 08/27/25 09:00 08/28/25 09:01 Aspirin 81 Mg Enteric Tablet PO 81 mg QAM BISHNU Administration Atorvastatin Calcium 20 mg 08/26/25 21:00 08/27/25 21:20 Atorvastatin 20 Mg Tablet PO 20 mg HS BISHNU Administration Cyclobenzaprine HCl 10 mg 08/26/25 18:26 Cyclobenzaprine Hcl 10 Mg Tablet PO TID PRN Back Pain Cyclosporine 1 drop 08/26/25 21:00 08/28/25 09:02 Cyclosporine 0.4 Ml Ophth Solution EACH EYE 1 drop Q12HR BISHNU Administration Dextrose 12.5 gm 08/26/25 18:29 Dextrose 50% 25 Gm/50 Ml Syringe IV PUSH PRN PRN Hypoglycemia Protocol Fluticasone Propionate 2 puff 08/26/25 20:00 08/28/25 07:30 Fluticasone Prop 220 Mcg (*Sp) 12 Gm Inhaler INHALATION 2 puff Q12HRT BISHNU Administration Glucagon 1 mg 08/26/25 18:29 Glucagon For Inj 1 Mg Vial IM PRN PRN Hypoglycemia Protocol Glucose 15 gm 08/26/25 18:29 Glucose Oral Gel 15 Gm Of Glucse In 37.5 Gm Tube PO PRN PRN Hypoglycemia Protocol Dextrose 1,000 mls @ 100 mls/hr 08/26/25 18:29 Dextrose 5% 1,000 Ml IVPB PRN PRN Hypoglycemia Protocol Magnesium Sulfate/Dextrose 3 gm in 100 mls @ 33.333 mls/hr 08/28/25 10:14 Magnesium Sulfate 3gm/[id number] IVPB 08/28/25 13:13 ONCE ONE Ibuprofen 400 mg 08/26/25 22:00 08/26/25 22:11 Ibuprofen 400 Mg Tablet PO 400 mg Q6H PRN Administration Pain Rated 1-3 Insulin Aspart 2 - 5 units 08/27/25 08:00 08/28/25 09:01 Insulin Aspart (*Bkc) 100 Units/Ml SUB-Q Not Given TIDWM [facility] Protocol Lacosamide 100 mg 08/27/25 09:00 08/28/25 09:01 Lacosamide (*Crx) 100 Mg Tablet PO 100 mg DAILY BISHNU Administration Meclizine HCl 25 mg 08/26/25 18:26 Meclizine Hcl 25 Mg Tablet PO TID PRN Dizziness Ondansetron HCl 4 mg 08/27/25 20:35 08/28/25 05:25 Ondansetron Inj 4 Mg/2 Ml Vial IV PUSH 4 mg Q6H PRN Administration Nausea And Vomiting Pantoprazole Sodium 40 mg 08/26/25 21:00 08/27/25 21:20 Pantoprazole 40 Mg Tablet PO 40 mg QHS BISHNU Administration Potassium Citrate 15 meq 08/27/25 08:00 08/28/25 08:59 Potassium Citrate 5 Meq Tab Cr PO 15 meq BIDWM BISHNU Administration Propranolol HCl 120 mg 08/27/25 09:00 08/28/25 08:58 Propranolol Hcl Er 60 Mg Capsule PO 120 mg QAM BISHNU Administration Ropinirole HCl 2 mg 08/26/25 21:00 08/28/25 09:00 Ropinirole Hcl 1 Mg Tablet PO 2 mg Q12HR BISHNU Administration Sucralfate 1 gm 08/27/25 09:00 08/28/25 09:00 Sucralfate 1 Gm Tablet PO 1 gm TID BISHNU Administration Trazodone HCl 100 mg 08/26/25 21:00 08/27/25 21:20 Trazodone Hcl 50 Mg Tablet PO 100 mg HS BISHNU Administration Valacyclovir HCl 500 mg 08/26/25 18:26 Valacyclovir Hcl 500 Mg Tablet PO Q12HR PRN Outbreak Zolpidem Tartrate 10 mg 08/26/25 21:00 08/27/25 21:20 Zolpidem Tartrate (*Crx) 5 Mg Tablet PO 10 mg HS BISHNU Administration Radiology Results: ITS Impressions Head/Neck CTA 08/26/25 12:26 IMPRESSION: CT HEAD: 1. No acute intracranial findings. CTA NECK: 1. No ICA stenosis or other acute arterial abnormality. CTA HEAD: 1. No large vessel arterial occlusive disease or other acute findings. 2. No aneurysms. Chest CTA 08/26/25 12:39 IMPRESSION: 1. No PE or other acute cardiopulmonary findings. Brain MRI 08/27/25 16:08 IMPRESSION: No acute infarct or hemorrhage. Labs Labs: Laboratory Results - last 24 hr 08/27/25 08/27/25 08/28/25 16:32 19:45 06:19 WBC 7.2 RBC 3.63 L Hgb 11.2 L Hct 32.9 L MCV 90.6 MCH 30.9 MCHC 34.0 RDW 12.3 Plt Count 198 MPV 9.9 Sodium 132 L Potassium 4.0 Chloride 95 L Carbon Dioxide 32 H Anion Gap 5 BUN 7 D Creatinine 0.74 Estim Creat Clear Calc 61 Estimated GFR > 60 Glucose 141 H POC Capillary Glucose 153 H 145 H Calcium 9.3 Magnesium 1.3 L 08/28/25 07:34 WBC RBC Hgb Hct MCV MCH MCHC RDW Plt Count MPV Sodium Potassium Chloride Carbon Dioxide Anion Gap BUN Creatinine Estim Creat Clear Calc Estimated GFR Glucose POC Capillary Glucose 160 H Calcium Magnesium Quality VTE Prophylaxis VTE prophylaxis: mechanical ordered
[2025-08-28] MEDS: MAGNESIUM SULFATE 3GM/D5W100ML 3 GM/100 ML BAG IVPB (12:02)
--- NOTE | 2025-08-28 14:32 | PM.IMPN2 ---
Assessment and Plan Assessment and Plan (1) Transient weakness of left leg: Code(s): R29.898 - Other symptoms and signs involving the musculoskeletal system Status: Acute (2) Chest pain: Qualifiers: Chest pain type: unspecified Qualified Code(s): R07.9 - Chest pain, unspecified Code(s): R07.9 - Chest pain, unspecified Status: Acute (3) MARIA ANTONIA (acute kidney injury): Code(s): N17.9 - Acute kidney failure, unspecified Status: Acute (4) Acute hyponatremia: Code(s): E87.1 - Hypo-osmolality and hyponatremia Status: Acute (5) Diabetes mellitus: Qualifiers: Diabetes mellitus type: type 2 Diabetes mellitus fpc insulin use: without vermin exterminator use Diabetes mellitus complication status: without complication Qualified Code(s): E11.9 - Type 2 diabetes mellitus without complications Code(s): E11.9 - Type 2 diabetes mellitus without complications Status: Chronic (6) Essential hypertension: Code(s): I10 - Essential (primary) hypertension Status: Acute (7) Atrial fibrillation: Qualifiers: Atrial fibrillation type: paroxysmal Qualified Code(s): I48.0 - Paroxysmal atrial fibrillation Code(s): I48.91 - Unspecified atrial fibrillation Status: Chronic (8) Hyperlipidemia: Qualifiers: Hyperlipidemia type: unspecified Qualified Code(s): E78.5 - Hyperlipidemia, unspecified Code(s): E78.5 - Hyperlipidemia, unspecified Status: Chronic Plan 60 y/o F with PMH of 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 She has history of TIAs and stroke with residual deficits. She reports her stroke was within the last 5 years and resulted in dysarthria and difficulties with balance. She additionally reports she has had intermittent chest pain. 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 Previous history of TIA and stroke with residual dysarthria and balance disturbance. Patient is unsure when her stroke last was but estimates it was in the last 5 years. Continue with tele monitoring Appreciate Neurology help Continue with aspirin, statin Brain MRI unremarkable for any acute issues PT/OT as tolerated (2) Chest pain: Continue tele monitor Appreciate cardiology help Troponin x3 flat No significant changes on EKG compared to previous Likely plan for stress test as per Cardiology Echocardiogram Event monitor upon discharge (3) MARIA ANTONIA (acute kidney injury): MARIA ANTONIA has resolved Avoid nephrotoxins Recheck BMP in a.m. (5) Diabetes mellitus: - hypoglycemia protocol - POC blood glucose ACHS - home medication: Hold metformin in case of need for contrast - correct regimen ordered - low dose TIDWM - A1C 6.5% in 2022, 08/26/2025 6.1% Switch diabetic diet from regular diet If still hyperglycemic will add mealtime insulin (6) Essential hypertension: Continue with Norvasc, propanolol (7) Atrial fibrillation: - continue propranolol 120 mg daily - telemetry monitoring ? Anticoagulation, defer to Cardiology 8. Code status: Full 9. DVT prophylaxis: Heparin subQ 10. Disposition: Pending improvement/stress test/echo Time Spent With Patient Time with patient: 25 - 35 minutes Subjective Date/time seen: 08/28/25 14:32 Interval history: No acute events overnight Review of Systems Review of Systems: All systems reviewed & are unremarkable except as noted in HPI and below Exam Narrative: HEENT: PERRL, sclerae nonicteric, pharyngeal mucosa pink and intact NECK: No JVD CHEST: Clear to auscultation, normal effort HEART: NL S1/S2, regular, no murmur ABDOMEN: BS+, soft, nontender, no mass, no bruits EXTREMITIES: No cyanosis, edema, or clubbing NEUROLOGIC: CN intact and symmetric to inspection, case management associate dorsiflexion plantar flexion and thigh flexion all intact MUSCULOSKELETAL: No deformities to inspection PSYCH: Alert, oriented to person, place, and time Objective Data Vital Signs Vital Signs: Vital Signs - 24 hr 08/27/25 16:00 08/27/25 16:00 08/27/25 19:40 Temperature 98.2 F 97.4 F L Pulse Rate 60 63 59 L Respiratory Rate 20 16 Blood Pressure 96/72 L 124/75 Pulse Oximetry 100 98 Oxygen Delivery 08/27/25 20:00 08/27/25 20:00 08/28/25 00:00 Temperature Pulse Rate 49 L 64 Respiratory Rate Blood Pressure Pulse Oximetry Oxygen Delivery Room Air 08/28/25 04:00 08/28/25 08:00 08/28/25 08:58 Temperature Pulse Rate 55 L 56 L 64 Respiratory Rate Blood Pressure Pulse Oximetry Oxygen Delivery 08/28/25 12:00 08/28/25 14:08 Temperature 98 F Pulse Rate 59 L 58 L Respiratory Rate 16 Blood Pressure 128/73 Pulse Oximetry 96 Oxygen Delivery Intake/Output Intake/Output: Intake & Output 08/25/25 08/26/25 08/27/25 08/28/25 23:59 23:59 23:59 23:59 Intake Total 2480 1010 660 Output Total 1110 Balance 2480 -100 660 Meds/Results Medications: Active Medications Generic Name Dose Route Start Last Admin Trade Name Freq PRN Reason Stop Dose Admin Albuterol 2 puff 08/26/25 18:26 Albuterol Sulfate (*Sp) Aerosol 1 Puff INHALATION Q4HRT PRN Shortness Of Breath Or Wheezing Alprazolam 1 mg 08/27/25 09:00 08/28/25 12:17 Alprazolam (*Crx) 0.5 Mg Tablet PO 1 mg TID BISHNU Administration Amlodipine Besylate 5 mg 08/27/25 09:00 08/28/25 09:00 Amlodipine Besylate 5 Mg Tablet PO 5 mg DAILY BISHNU Administration Aspirin 81 mg 08/27/25 09:00 08/28/25 09:01 Aspirin 81 Mg Enteric Tablet PO 81 mg QAM BISHNU Administration Atorvastatin Calcium 20 mg 08/26/25 21:00 08/27/25 21:20 Atorvastatin 20 Mg Tablet PO 20 mg HS BISHNU Administration Cyclobenzaprine HCl 10 mg 08/26/25 18:26 Cyclobenzaprine Hcl 10 Mg Tablet PO TID PRN Back Pain Cyclosporine 1 drop 08/26/25 21:00 08/28/25 09:02 Cyclosporine 0.4 Ml Ophth Solution EACH EYE 1 drop Q12HR BISHNU Administration Dextrose 12.5 gm 08/26/25 18:29 Dextrose 50% 25 Gm/50 Ml Syringe IV PUSH PRN PRN Hypoglycemia Protocol Fluticasone Propionate 2 puff 08/26/25 20:00 08/28/25 07:30 Fluticasone Prop 220 Mcg (*Sp) 12 Gm Inhaler INHALATION 2 puff Q12HRT BISHNU Administration Glucagon 1 mg 08/26/25 18:29 Glucagon For Inj 1 Mg Vial IM PRN PRN Hypoglycemia Protocol Glucose 15 gm 08/26/25 18:29 Glucose Oral Gel 15 Gm Of Glucse In 37.5 Gm Tube PO PRN PRN Hypoglycemia Protocol Dextrose 1,000 mls @ 100 mls/hr 08/26/25 18:29 Dextrose 5% 1,000 Ml IVPB PRN PRN Hypoglycemia Protocol Ibuprofen 400 mg 08/26/25 22:00 08/26/25 22:11 Ibuprofen 400 Mg Tablet PO 400 mg Q6H PRN Administration Pain Rated 1-3 Insulin Aspart 2 - 5 units 08/27/25 08:00 08/28/25 12:03 Insulin Aspart (*Bkc) 100 Units/Ml SUB-Q Not Given TIDWM BISHNU Protocol Lacosamide 100 mg 08/27/25 09:00 08/28/25 09:01 Lacosamide (*Crx) 100 Mg Tablet PO 100 mg DAILY BISHNU Administration Meclizine HCl 25 mg 08/26/25 18:26 Meclizine Hcl 25 Mg Tablet PO TID PRN Dizziness Ondansetron HCl 4 mg 08/27/25 20:35 08/28/25 05:25 Ondansetron Inj 4 Mg/2 Ml Vial IV PUSH 4 mg Q6H PRN Administration Nausea And Vomiting Pantoprazole Sodium 40 mg 08/26/25 21:00 08/27/25 21:20 Pantoprazole 40 Mg Tablet PO 40 mg QHS BISHNU Administration Potassium Citrate 15 meq 08/27/25 08:00 08/28/25 08:59 Potassium Citrate 5 Meq Tab Cr PO 15 meq BIDWM BISHNU Administration Propranolol HCl 120 mg 08/27/25 09:00 08/28/25 08:58 Propranolol Hcl Er 60 Mg Capsule PO 120 mg QAM BISHNU Administration Ropinirole HCl 2 mg 08/26/25 21:00 08/28/25 09:00 Ropinirole Hcl 1 Mg Tablet PO 2 mg Q12HR BISHNU Administration Sucralfate 1 gm 08/27/25 09:00 08/28/25 12:17 Sucralfate 1 Gm Tablet PO 1 gm TID BISHNU Administration Trazodone HCl 100 mg 08/26/25 21:00 08/27/25 21:20 Trazodone Hcl 50 Mg Tablet PO 100 mg HS BISHNU Administration Valacyclovir HCl 500 mg 08/26/25 18:26 Valacyclovir Hcl 500 Mg Tablet PO Q12HR PRN Outbreak Zolpidem Tartrate 10 mg 08/26/25 21:00 08/27/25 21:20 Zolpidem Tartrate (*Crx) 5 Mg Tablet PO 10 mg HS BISHNU Administration Radiology Results: ITS Impressions Head/Neck CTA 08/26/25 12:26 IMPRESSION: CT HEAD: 1. No acute intracranial findings. CTA NECK: 1. No ICA stenosis or other acute arterial abnormality. CTA HEAD: 1. No large vessel arterial occlusive disease or other acute findings. 2. No aneurysms. Chest CTA 08/26/25 12:39 IMPRESSION: 1. No PE or other acute cardiopulmonary findings. Brain MRI 08/27/25 16:08 IMPRESSION: No acute infarct or hemorrhage. Labs Labs: Laboratory Results - last 24 hr 08/27/25 08/27/25 08/28/25 16:32 19:45 06:19 WBC 7.2 RBC 3.63 L Hgb 11.2 L Hct 32.9 L MCV 90.6 MCH 30.9 MCHC 34.0 RDW 12.3 Plt Count 198 MPV 9.9 Sodium 132 L Potassium 4.0 Chloride 95 L Carbon Dioxide 32 H Anion Gap 5 BUN 7 D Creatinine 0.74 Estim Creat Clear Calc 61 Estimated GFR > 60 Glucose 141 H POC Capillary Glucose 153 H 145 H Calcium 9.3 Magnesium 1.3 L 08/28/25 08/28/25 07:34 11:57 WBC RBC Hgb Hct MCV MCH MCHC RDW Plt Count MPV Sodium Potassium Chloride Carbon Dioxide Anion Gap BUN Creatinine Estim Creat Clear Calc Estimated GFR Glucose POC Capillary Glucose 160 H 171 H Calcium Magnesium Quality VTE Prophylaxis VTE prophylaxis: pharmacologic ordered
[2025-08-28] MEDS: PERFLUTREN LIPID MICROSPHERES 1.5 ML VIAL DILUTED TO 10 ML TOTAL VOLUME IV PUSH (15:49)
--- NOTE | 2025-08-28 15:49 | IVDEFINITY ---
Prior to administration of IV Definity the patient was educated on the risks and benefits of the imaging enhancing agent including potential adverse side effects. The patient verbalized understanding. Allergies were verified. No exclusion criteria were identified and at least one of the following inclusion criteria were met: 1) physician request, 2) patient technically difficult to image (per the [place] [employer]ocardi[employer] guidelines of two or more segments not discernable within the apical view), or 3) questionable left ventricular function. ?
[2025-08-28] MEDS: ATORVASTATIN 20 MG TABLET PO (20:42)
[2025-08-28] MEDS: PANTOPRAZOLE 40 MG TABLET PO (20:42)
[2025-08-28] MEDS: ZOLPIDEM TARTRATE (*CRX) 5 MG TABLET 10 MG PO (20:42)
[2025-08-28] MEDS: CYCLOBENZAPRINE HCL 10 MG TABLET PO (20:49)
--- NOTE | 2025-08-28 21:28 | PC.NURSE ---
pt refused accu checks and heparin tonight. pt states she wants to wait until she speaks with the DR in the morning in regards to heparin. she refused accu checks she states tired of fingers getting poked. educated on the importance of following orders of DR and continue to refuse.
[2025-08-29] VITALS (8 sets, daily range): BP systolic 141; BP diastolic 79–91; PULSE 54–63; RESP 18; TEMP 36.1–36.7; O2SAT 93–96
[2025-08-29] MEDS: ONDANSETRON INJ 4 MG/2 ML VIAL IV PUSH (06:05)
[2025-08-29 06:15] LABS: Hematocrit 34.7 % (37.0-47.0); Hemoglobin 11.5 g/dL (12.0-15.0); Immature Granulocyte Percent A 0.3 % (0-0.5); Lymphocytes Absolute Auto 2.21 K/mm3 (0.9-3.2); Mean Corpuscular HGB Conc 33.1 g/dl (32-36); Mean Corpuscular Hemoglobin 30.0 pg (26-34); Mean Corpuscular Volume 90.6 fl (80-100); Nucleated Red Blood Cells Absolute Auto 0.000 K/mm3 (0.0-0.012); Nucleated Red Blood Cells Perc 0.0 % (0.0-0.2); Platelet Count Result 205 k/mm3 (150-375); Red Blood Count 3.83 M/mm3 (4.2-5.4); White Blood Count 5.8 K/mm3 (4.5-10.0)
[2025-08-29 06:43] LABS: Anion Gap 4 mmol/L (4-12); Blood Urea Nitrogen 8 mg/dL (7-17); Calcium 8.8 mg/dL (8.4-10.2); Carbon Dioxide 34 mmol/L (22-30); Chloride 93 mmol/L (98-107); Estimated CRCL calculation 63 ml/min; Estimated Glomerular Filt Rate > 60; Glucose 127 mg/dL (65-110); Potassium 3.8 mmol/L (3.4-5.0); Sodium 131 mmol/L (137-145)
[2025-08-29] MEDS: FLUTICASONE PROP 220 MCG (*SP) 12 GM INHALER 2 PUFF INHALATION ×2 (08:08→20:11)
[2025-08-29] MEDS: SUCRALFATE 1 GM TABLET PO ×3 (08:46→17:31)
[2025-08-29] MEDS: ALPRAZolam (*CRX) 0.5 MG TABLET 1 MG PO ×3 (08:47→17:30)
[2025-08-29] MEDS: POTASSIUM CITRATE 5 MEQ TAB CR 15 MEQ PO ×2 (08:47→17:31)
[2025-08-29] MEDS: ASPIRIN 81 MG ENTERIC TABLET PO (08:48)
[2025-08-29] MEDS: cycloSPORINE 0.4 ML OPHTH SOLUTION 1 DROP EACH EYE ×2 (08:49→21:17)
[2025-08-29 13:09] LABS: Osmolality, Serum 284 mOsmol/kg (280-301)
[2025-08-29] MEDS: LACOSAMIDE (*CRX) 100 MG TABLET PO (13:14)
[2025-08-29 14:08] LABS: Osmolality, Urine 296 mOsmol/kg (.)
--- NOTE | 2025-08-29 17:31 | PM.IMPN2 ---
Assessment and Plan Assessment and Plan (1) Transient weakness of left leg: Code(s): R29.898 - Other symptoms and signs involving the musculoskeletal system Status: Acute (2) Chest pain: Qualifiers: Chest pain type: unspecified Qualified Code(s): R07.9 - Chest pain, unspecified Code(s): R07.9 - Chest pain, unspecified Status: Acute (3) MARIA ANTONIA (acute kidney injury): Code(s): N17.9 - Acute kidney failure, unspecified Status: Acute (4) Acute hyponatremia: Code(s): E87.1 - Hypo-osmolality and hyponatremia Status: Acute (5) Diabetes mellitus: Qualifiers: Diabetes mellitus type: type 2 Diabetes mellitus custodial insulin use: without termite exterminator helper use Diabetes mellitus complication status: without complication Qualified Code(s): E11.9 - Type 2 diabetes mellitus without complications Code(s): E11.9 - Type 2 diabetes mellitus without complications Status: Chronic (6) Essential hypertension: Code(s): I10 - Essential (primary) hypertension Status: Acute (7) Atrial fibrillation: Qualifiers: Atrial fibrillation type: paroxysmal Qualified Code(s): I48.0 - Paroxysmal atrial fibrillation Code(s): I48.91 - Unspecified atrial fibrillation Status: Chronic (8) Hyperlipidemia: Qualifiers: Hyperlipidemia type: unspecified Qualified Code(s): E78.5 - Hyperlipidemia, unspecified Code(s): E78.5 - Hyperlipidemia, unspecified Status: Chronic Plan 60 y/o F with PMH of 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 She has history of TIAs and stroke with residual deficits. She reports her stroke was within the last 5 years and resulted in dysarthria and difficulties with balance. She additionally reports she has had intermittent chest pain. 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 Previous history of TIA and stroke with residual dysarthria and balance disturbance. Patient is unsure when her stroke last was but estimates it was in the last 5 years. Continue with tele monitoring Appreciate Neurology help Continue with aspirin, statin Brain MRI unremarkable for any acute issues PT/OT as tolerated (2) Chest pain: Continue tele monitor Appreciate cardiology help Troponin x3 flat No significant changes on EKG compared to previous Likely plan for stress test as per Cardiology Echocardiogram normal biV function cardiology following (3) MARIA ANTONIA (acute kidney injury): MARIA ANTONIA has resolved Avoid nephrotoxins Recheck BMP in a.m. (5) Diabetes mellitus: - hypoglycemia protocol - POC blood glucose ACHS - home medication: Hold metformin in case of need for contrast - correct regimen ordered - low dose TIDWM - A1C 6.5% in 2022, 08/26/2025 6.1% Switch diabetic diet from regular diet If still hyperglycemic will add mealtime insulin (6) Essential hypertension: Continue with Norvasc, propanolol (7) Atrial fibrillation: - continue propranolol 120 mg daily - telemetry monitoring ? Anticoagulation, defer to Cardiology 8. Code status: Full 9. DVT prophylaxis: Heparin subQ 10. 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 plantar flexion and thigh flexion all intact MUSCULOSKELETAL: No deformities to inspection PSYCH: Alert, oriented to person, place, and time Const: General: comfortable and no acute distress Other: , female, nontoxic appearance HENMT: Face/Nose/Sinus: Normal nares present Mouth: Yes moist mucous membranes Eyes: General: appearance normal, both eyes and all related structures Sclera: sclerae normal Pupils: Equal, round and reactive pupils present EOM: EOMs intact bilaterally Resp: Effort & Inspection: normal respiratory effort Auscultation: clear to auscultation bilaterally Cardio: Rate: regular rate Rhythm: regular rhythm Other: S1-S2 present without murmur, rub, ectopy GI: Other: Abdomen soft, nondistended, nontender. Normoactive bowel sounds in all quadrants. Skin: General skin exam: normal color and no rashes or lesions noted Wounds: no wounds Neuro: Cranial nerves: Yes Equal, round and reactive pupils present Motor exam (neuro): 5/5 motor strength present throughout Sensory Exam: normal sensation Other: A&O x4. Slow speech moreno. Extrem: General: normal to inspection Psych: Mental Status: mental status grossly normal Affect: normal affect Other: Fair insight and judgment. Tangental conversation. Objective Data Vital Signs Vital Signs: Vital Signs - 24 hr 08/28/25 20:00 08/28/25 20:52 08/28/25 20:55 Temperature Pulse Rate 58 L 57 L 57 L Respiratory Rate 20 20 Blood Pressure Pulse Oximetry 97 Oxygen Delivery Room Air Fraction of Inspired Oxygen 21 08/28/25 23:47 08/29/25 00:00 08/29/25 04:00 Temperature 98.5 F Pulse Rate 59 L 54 L 54 L Respiratory Rate 17 Blood Pressure 125/72 Pulse Oximetry 96 Oxygen Delivery Fraction of Inspired Oxygen 08/29/25 08:00 08/29/25 08:45 08/29/25 12:02 Temperature Pulse Rate 60 63 Respiratory Rate Blood Pressure Pulse Oximetry Oxygen Delivery Room Air Fraction of Inspired Oxygen 08/29/25 14:00 Temperature 98.0 F Pulse Rate 56 L Respiratory Rate 18 Blood Pressure 141/91 H Pulse Oximetry 95 Oxygen Delivery Fraction of Inspired Oxygen Intake/Output Intake/Output: Intake & Output 08/26/25 08/27/25 08/28/25 08/29/25 23:59 23:59 23:59 23:59 Intake Total 2480 1010 1000 910 Output Total 1110 Balance 2480 -100 1000 910 Meds/Results Medications: Active Medications Generic Name Dose Route Start Last Admin Trade Name Freq PRN Reason Stop Dose Admin Albuterol 2 puff 08/26/25 18:26 Albuterol Sulfate (*Sp) Aerosol 1 Puff INHALATION Q4HRT PRN Shortness Of Breath Or Wheezing Alprazolam 1 mg 08/27/25 09:00 08/29/25 17:30 Alprazolam (*Crx) 0.5 Mg Tablet PO 1 mg TID BISHNU Administration Amlodipine Besylate 5 mg 08/27/25 09:00 08/29/25 08:48 Amlodipine Besylate 5 Mg Tablet PO 5 mg DAILY BISHNU Administration Aspirin 81 mg 08/27/25 09:00 08/29/25 08:48 Aspirin 81 Mg Enteric Tablet PO 81 mg QAM BISHNU Administration Atorvastatin Calcium 20 mg 08/26/25 21:00 08/28/25 20:42 Atorvastatin 20 Mg Tablet PO 20 mg HS BISHNU Administration Cyclobenzaprine HCl 10 mg 08/26/25 18:26 08/28/25 20:49 Cyclobenzaprine Hcl 10 Mg Tablet PO 10 mg TID PRN Administration Back Pain Cyclosporine 1 drop 08/26/25 21:00 08/29/25 08:49 Cyclosporine 0.4 Ml Ophth Solution EACH EYE 1 drop Q12HR BISHNU Administration Dextrose 12.5 gm 08/26/25 18:29 Dextrose 50% 25 Gm/50 Ml Syringe IV PUSH PRN PRN Hypoglycemia Protocol Fluticasone Propionate 2 puff 08/26/25 20:00 08/29/25 08:08 Fluticasone Prop 220 Mcg (*Sp) 12 Gm Inhaler INHALATION 2 puff Q12HRT BISHNU Administration Glucagon 1 mg 08/26/25 18:29 Glucagon For Inj 1 Mg Vial IM PRN PRN Hypoglycemia Protocol Glucose 15 gm 08/26/25 18:29 Glucose Oral Gel 15 Gm Of Glucse In 37.5 Gm Tube PO PRN PRN Hypoglycemia Protocol Heparin Sodium (Porcine) 5,000 units 08/28/25 22:00 08/29/25 13:14 Heparin Sodium 5,000 Units/Ml Vial SUB-Q 5,000 units Q8HR BISHNU Administration Dextrose 1,000 mls @ 100 mls/hr 08/26/25 18:29 Dextrose 5% 1,000 Ml IVPB PRN PRN Hypoglycemia Protocol Ibuprofen 400 mg 08/26/25 22:00 08/26/25 22:11 Ibuprofen 400 Mg Tablet PO 400 mg Q6H PRN Administration Pain Rated 1-3 Insulin Aspart 2 - 5 units 08/27/25 08:00 08/29/25 17:30 Insulin Aspart (*Bkc) 100 Units/Ml SUB-Q Not Given TIDWM BISHNU Protocol Lacosamide 100 mg 08/29/25 14:00 08/29/25 13:14 Lacosamide (*Crx) 100 Mg Tablet PO 100 mg DAILY@1400 BISHNU Administration Meclizine HCl 25 mg 08/26/25 18:26 Meclizine Hcl 25 Mg Tablet PO TID PRN Dizziness Ondansetron HCl 4 mg 08/27/25 20:35 08/29/25 06:05 Ondansetron Inj 4 Mg/2 Ml Vial IV PUSH 4 mg Q6H PRN Administration Nausea And Vomiting Pantoprazole Sodium 40 mg 08/26/25 21:00 08/28/25 20:42 Pantoprazole 40 Mg Tablet PO 40 mg QHS BISHNU Administration Potassium Citrate 15 meq 08/27/25 08:00 08/29/25 17:31 Potassium Citrate 5 Meq Tab Cr PO 15 meq BIDWM BISHNU Administration Propranolol HCl 120 mg 08/27/25 09:00 08/29/25 09:01 Propranolol Hcl Er 60 Mg Capsule PO Not Given [facility] Ropinirole HCl 2 mg 08/26/25 21:00 08/29/25 08:49 Ropinirole Hcl 1 Mg Tablet PO 2 mg Q12HR BISHNU Administration Sucralfate 1 gm 08/27/25 09:00 08/29/25 17:31 Sucralfate 1 Gm Tablet PO 1 gm TID BISHNU Administration Trazodone HCl 100 mg 08/26/25 21:00 08/28/25 20:42 Trazodone Hcl 50 Mg Tablet PO 100 mg HS [facility] Administration Valacyclovir HCl 500 mg 08/26/25 18:26 Valacyclovir Hcl 500 Mg Tablet PO Q12HR PRN Outbreak Zolpidem Tartrate 10 mg 08/29/25 21:00 Zolpidem Tartrate (*Crx) 5 Mg Tablet PO HS [facility] Radiology Results: ITS Impressions Head/Neck CTA 08/26/25 12:26 IMPRESSION: CT HEAD: 1. No acute intracranial findings. CTA NECK: 1. No ICA stenosis or other acute arterial abnormality. CTA HEAD: 1. No large vessel arterial occlusive disease or other acute findings. 2. No aneurysms. Chest CTA 08/26/25 12:39 IMPRESSION: 1. No PE or other acute cardiopulmonary findings. Brain MRI 08/27/25 16:08 IMPRESSION: No acute infarct or hemorrhage. Labs Labs: Laboratory Results - last 24 hr 08/26/25 08/26/25 08/29/25 17:14 20:11 05:28 WBC 5.8 RBC 3.83 L Hgb 11.5 L Hct 34.7 L MCV 90.6 MCH 30.0 MCHC 33.1 RDW 12.3 Plt Count 205 MPV 10.6 H Immature Gran % (Auto) 0.3 Neut % (Auto) 51.9 Lymph % (Auto) 38.0 [place] % (Auto) 8.6 H Eos % (Auto) 0.5 Baso % (Auto) 0.7 Lymph # (Auto) 2.21 [place] # (Auto) 0.5 Eos # (Auto) 0.0 Baso # (Auto) 0.0 Abs Immat Gran (auto) 0.02 Absolute Neuts (auto) 3.0 Absolute Nucleated RBC 0.000 Nucleated RBC % 0.0 Sodium 131 L Potassium 3.8 Chloride 93 L Carbon Dioxide 34 H Anion Gap 4 BUN 8 Creatinine 0.72 Estim Creat Clear Calc 63 Estimated GFR > 60 Glucose 127 H POC Capillary Glucose Serum Osmolality 284 Calcium 8.8 Urine Osmolality 296 08/29/25 08/29/25 08/29/25 07:35 11:16 16:32 WBC RBC Hgb Hct MCV MCH MCHC RDW Plt Count MPV Immature Gran % (Auto) Neut % (Auto) Lymph % (Auto) [place] % (Auto) Eos % (Auto) Baso % (Auto) Lymph # (Auto) [place] # (Auto) Eos # (Auto) Baso # (Auto) Abs Immat Gran (auto) Absolute Neuts (auto) Absolute Nucleated RBC Nucleated RBC % Sodium Potassium Chloride Carbon Dioxide Anion Gap BUN Creatinine Estim Creat Clear Calc Estimated GFR Glucose POC Capillary Glucose 142 H 134 H 141 H Serum Osmolality Calcium Urine Osmolality Quality VTE Prophylaxis VTE prophylaxis: pharmacologic ordered
[2025-08-29] MEDS: ATORVASTATIN 20 MG TABLET PO (20:38)
[2025-08-29] MEDS: PANTOPRAZOLE 40 MG TABLET PO (20:38)
[2025-08-29] MEDS: ZOLPIDEM TARTRATE (*CRX) 5 MG TABLET 10 MG PO (20:38)
[2025-08-30] VITALS (9 sets, daily range): BP systolic 127–140; BP diastolic 68–92; PULSE 54–65; RESP 18–20; TEMP 36.4–36.6; O2SAT 95–96
[2025-08-30] MEDS: ONDANSETRON INJ 4 MG/2 ML VIAL IV PUSH ×2 (05:14→21:10)
[2025-08-30 06:58] LABS: Hematocrit 34.4 % (37.0-47.0); Hemoglobin 11.5 g/dL (12.0-15.0); Immature Granulocyte Percent A 0.2 % (0-0.5); Lymphocytes Absolute Auto 2.18 K/mm3 (0.9-3.2); Mean Corpuscular HGB Conc 33.4 g/dl (32-36); Mean Corpuscular Hemoglobin 30.3 pg (26-34); Mean Corpuscular Volume 90.8 fl (80-100); Nucleated Red Blood Cells Absolute Auto 0.000 K/mm3 (0.0-0.012); Nucleated Red Blood Cells Perc 0.0 % (0.0-0.2); Platelet Count Result 201 k/mm3 (150-375); Red Blood Count 3.79 M/mm3 (4.2-5.4); White Blood Count 5.3 K/mm3 (4.5-10.0)
[2025-08-30 07:22] LABS: Alanine Aminotransferase 16 U/L (6-35); Albumin Level 3.9 g/dL (3.5-5.1); Alkaline Phosphatase 49 U/L (38-126); Anion Gap 4 mmol/L (4-12); Aspartate Amino Transferase 38 U/L (14-36); Bilirubin,Total 0.4 mg/dL (0.2-1.3); Blood Urea Nitrogen 8 mg/dL (7-17); Calcium 8.7 mg/dL (8.4-10.2); Carbon Dioxide 31 mmol/L (22-30); Chloride 96 mmol/L (98-107); Estimated CRCL calculation 60 ml/min; Estimated Glomerular Filt Rate > 60; Glucose 137 mg/dL (65-110); Magnesium 1.2 mg/dL (1.6-2.3); Potassium 4.1 mmol/L (3.4-5.0); Sodium 131 mmol/L (137-145); Total Protein 6.6 g/dL (6.3-8.2)
[2025-08-30] MEDS: FLUTICASONE PROP 220 MCG (*SP) 12 GM INHALER 2 PUFF INHALATION ×2 (08:26→20:37)
[2025-08-30] MEDS: LACOSAMIDE (*CRX) 100 MG TABLET PO (14:09)
[2025-08-30] MEDS: ALPRAZolam (*CRX) 0.5 MG TABLET 1 MG PO ×2 (14:09→17:10)
[2025-08-30] MEDS: MAGNESIUM SULF 4 GM/WATER100ML 4 GM/100 ML BAG IVPB (14:09)
[2025-08-30] MEDS: cycloSPORINE 0.4 ML OPHTH SOLUTION 1 DROP EACH EYE (14:09)
[2025-08-30] MEDS: SUCRALFATE 1 GM TABLET PO ×2 (14:09→17:11)
--- NOTE | 2025-08-30 16:02 | P.DS_ITS ---
DS: Admitting Diagnosis Discharge Date 08/30/2025 Admitting Diagnosis Chest Pain, Transient Weakness DS: Discharge Diagnosis Discharge Diagnosis (1) Brain TIA: Code(s): G45.9 - Transient cerebral ischemic attack, unspecified Status: Acute DS: Summary Hospital Course Hospital Course: Admitting Diagnosis: * Transient left-sided weakness and facial droop (TIA vs. CVA) * Chest pain * Acute kidney injury * Hyponatremia * Type 2 diabetes mellitus * Paroxysmal atrial fibrillation * Essential hypertension * Hyperlipidemia Hospital Course: Ms. 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 [facility] with complaints of intermittent chest pain and an episode of transient left-sided facial droop and left lower extremity weakness lasting approximately one hour, three days prior to admission. She also reported multiple episodes of diarrhea in the 24 hours prior to admission. On admission: * Vitals were stable. * Neurological exam was at baseline with no focal deficits. * Cardiac exam was unremarkable. * Labs showed hyponatremia (Na 129), hypokalemia (K 3.2), MARIA ANTONIA (Cr 1.83, GFR 28), and mild anemia. * Troponins were negative x3. * EKG: Sinus rhythm, nonspecific ST/T changes. * CTA head/neck: No acute findings, no large vessel occlusion or aneurysm. * CTA chest: No PE or acute cardiopulmonary findings. * Brain MRI: No acute infarct or hemorrhage. * Echocardiogram: Normal biventricular size and function, EF 60-65%, no significant valvular disease. Hospital Course: * Neurology?was consulted for evaluation of transient neurological symptoms. No acute stroke was identified on imaging. Symptoms resolved without intervention. Patient already of Aspirin at home, switched to Plavix, continue lIpitor. * Cardiology?was consulted for chest pain and history of atrial fibrillation. Cardiac enzymes remained negative, and EKGs were unchanged. Echocardiogram was normal. No evidence of acute coronary syndrome. She remained in sinus rhythm during hospitalization.Nuclear stress test no ischemic changes * MARIA ANTONIA?was attributed to hypovolemia from diarrhea and resolved with IV fluids. * Hyponatremia?was likely multifactorial (diarrhea, medications) and resolved with supportive care. * Diabetes?was managed with home oral agents and sliding scale insulin as needed. continue home regiment * Hypertension and hyperlipidemia?were managed with home medications. * Atrial fibrillation:?No episodes documented during admission. She is not anticoagulated due to fall risk; cardiology was consulted and they deferred anticoagulation to primary cardiology * Other:?She was monitored on telemetry, received DVT prophylaxis, and was evaluated by PT/OT. She remained hemodynamically stable, with no recurrence of chest pain or neurological symptoms. Renal function and electrolytes normalized prior to discharge. Discharge Condition: * At baseline mentation, no focal neurological deficits, hemodynamically stable, ambulating with assistance. Discharge Diagnoses: * Transient left-sided weakness and facial droop (TIA vs. CVA) * Chest pain, non-cardiac * Acute kidney injury, resolved * Hyponatremia, resolved * Type 2 diabetes mellitus, controlled * Paroxysmal atrial fibrillation, in sinus rhythm * Essential hypertension * Hyperlipidemia * History of NSTEMI and CAD * History of CVA with residual dysarthria and balance disturbance * PTSD, anxiety, depression * Asthma, fibromyalgia, GERD, chronic kidney disease Discharge Medications: * Continue home medications: * Amlodipine 5 mg daily * Propranolol 120 mg daily * Plavix 75mg daily * Atorvastatin 20 mg daily * Metformin 500 mg BID (hold if contrast needed) * Potassium citrate 15 mEq BID * Ropinirole 2 mg BID * Alprazolam 1 mg TID * Cyclobenzaprine 10 mg TID PRN * Ondansetron 4 mg Q8H PRN * Valacyclovir 500 mg BID PRN * Zolpidem 10 mg HS * Fluticasone furoate inhaler daily * Cyclosporine eye drops BID * Lacosamide 100 mg daily * Meclizine 25 mg TID PRN * Trazodone 100 mg HS * Pantoprazole 40 mg QHS * Sucralfate 1 g TID * Insulin aspart sliding scale PRN Discharge Instructions: * Follow up with primary care, neurology, and cardiology * Event monitor to be arranged as outpatient * Continue home medications as above * Monitor for recurrence of neurological symptoms, chest pain, or signs of dehydration * Maintain adequate oral hydration * Diabetic diet * Defer anticoagulation decision to outpatient cardiology due to fall risk Follow-Up Appointments: * Primary care: f/u with PCP in 3-5 days * Cardiology: f/u with cardiology as instructed * Neurology: f/u with neurology as instructed Time Spent with Patient Time attestation: Total time spent providing and/or coordinating discharge services: DS: Data Data Completed and Pending Labs on day of discharge: Labs from last 24 hours 08/30/25 08/30/25 08/29/25 07:29 06:28 19:52 WBC 5.3 RBC 3.79 L Hgb 11.5 L Hct 34.4 L MCV 90.8 MCH 30.3 MCHC 33.4 RDW 12.3 Plt Count 201 MPV 10.6 H Immature Gran % (Auto) 0.2 Neut % (Auto) 48.4 Lymph % (Auto) 41.4 [place] % (Auto) 8.0 Eos % (Auto) 1.1 Baso % (Auto) 0.9 Lymph # (Auto) 2.18 [place] # (Auto) 0.4 Eos # (Auto) 0.1 Baso # (Auto) 0.1 Abs Immat Gran (auto) 0.01 Absolute Neuts (auto) 2.6 Absolute Nucleated RBC 0.000 Nucleated RBC % 0.0 Sodium 131 L Potassium 4.1 Chloride 96 L Carbon Dioxide 31 H Anion Gap 4 BUN 8 Creatinine 0.76 Estim Creat Clear Calc 60 Estimated GFR > 60 Glucose 137 H POC Capillary Glucose 133 H 143 H Calcium 8.7 Magnesium 1.2 L Total Bilirubin 0.4 AST 38 H ALT 16 Alkaline Phosphatase 49 Total Protein 6.6 Albumin 3.9 08/29/25 16:32 WBC RBC Hgb Hct MCV MCH MCHC RDW Plt Count MPV Immature Gran % (Auto) Neut % (Auto) Lymph % (Auto) [place] % (Auto) Eos % (Auto) Baso % (Auto) Lymph # (Auto) [place] # (Auto) Eos # (Auto) Baso # (Auto) Abs Immat Gran (auto) Absolute Neuts (auto) Absolute Nucleated RBC Nucleated RBC % Sodium Potassium Chloride Carbon Dioxide Anion Gap BUN Creatinine Estim Creat Clear Calc Estimated GFR Glucose POC Capillary Glucose 141 H Calcium Magnesium Total Bilirubin AST ALT Alkaline Phosphatase Total Protein Albumin Discharge Plan Discharge Attending physician on discharge: Allie Swanson Consulting providers: Maurice Hendrickson; Osman Osborne; Chalo Silva; Allie Swanson Discharging Clinician: Allie Swanson Anticipated Discharge Date/Time: 08/30/25 15:56 Patient Disposition: Home Activity: as tolerated Diet: as tolerated and diabetic Patient Instructions: Antibiotic Form Patient Language: Samoan Stand Alone Forms: General Discharge Information Follow-up/Referrals: Osman Osborne MD [Physician, Neurology] Referral Note: F/u with neurology as instructed PHYSICIAN,ENTRY LEVEL WEB DEVELOPER [Primary Care Provider, Internal Medicine] Referral Note: F/u with PCP in 3-5 days Discharge Medications: New clopidogrel [Plavix] 75 mg tablet 75 mg PO DAILY 30 Days Qty: 30 1RF Continued albuterol sulfate 90 mcg/actuation HFA aerosol inhaler 2 inh INHALATION Q4-6H PRN (Reason: Shortness Of Breath Or Wheezing) alprazolam 1 mg tablet 1 mg PO TID ondansetron HCl 4 mg tablet 4 mg PO Q8H PRN (Reason: Nausea And Vomiting) valacyclovir 500 mg tablet 500 mg PO BID PRN (Reason: Outbreak) Rx Instructions: TAKE 1 TABLET BY MOUTH BID FOR 3 DAYS NEEDED FOR OUTBREAK cyclobenzaprine 10 mg tablet 10 mg PO TID PRN (Reason: Back Pain) metformin 500 mg tablet 500 mg PO BIDWM atorvastatin 20 mg tablet 20 mg PO HS ropinirole 1 mg tablet 2 mg PO BID Patient Comments: out of med amlodipine 5 mg tablet 5 mg PO DAILY potassium citrate 15 mEq tablet extended release 15 meq PO BIDWM Patient Comments: out of medication Arnuity Ellipta 1 inh inhalation DAILY trazodone 100 mg tablet 100 mg PO HS meclizine 25 mg Tablet 25 mg PO TID PRN (Reason: Dizziness) Patient Comments: out of medication cyclosporine [Restasis] 0.05 % Dropperette 1 drp EACH EYE BID lacosamide 100 mg tablet 100 mg PO DAILY fluticasone furoate [Arnuity Ellipta] 200 mcg/actuation Blister With Device 1 inh INHALATION DAILY pantoprazole 40 mg Tablet,Delayed Release (Dr/Ec) 40 mg PO QHS Qty: 30 0RF sucralfate [Carafate] 1 gram tablet 1 g PO TID Qty: 90 0RF zolpidem 12.5 mg tablet,ext release multiphase 12.5 mg PO HS omeprazole 20 mg capsule,delayed release(DR/EC) 20 mg PO DAILY Discontinued aspirin 81 mg tablet 81 mg PO DAILY Date of admission: 08/26/25 15:11 Primary Care Provider: PHYSICIAN,ENTRY LEVEL WEB DEVELOPER Admitting Provider: Megan Valderrama Attending physician on admission: Megan Valderrama Condition: Serious
--- NOTE | 2025-08-30 16:02 | PM.DS ---
DS: Admitting Diagnosis Discharge Date 08/30/2025 Admitting Diagnosis Chest Pain, Transient Weakness DS: Discharge Diagnosis Discharge Diagnosis (1) Brain TIA: Code(s): G45.9 - Transient cerebral ischemic attack, unspecified Status: Acute DS: Summary Hospital Course Hospital Course: Admitting Diagnosis: Transient left-sided weakness and facial droop (TIA vs. CVA) Chest pain Acute kidney injury Hyponatremia Type 2 diabetes mellitus Paroxysmal atrial fibrillation Essential hypertension Hyperlipidemia Hospital Course: Ms. 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 [facility] with complaints of intermittent chest pain and an episode of transient left-sided facial droop and left lower extremity weakness lasting approximately one hour, three days prior to admission. She also reported multiple episodes of diarrhea in the 24 hours prior to admission. On admission: Vitals were stable. Neurological exam was at baseline with no focal deficits. Cardiac exam was unremarkable. Labs showed hyponatremia (Na 129), hypokalemia (K 3.2), MARIA ANTONIA (Cr 1.83, GFR 28), and mild anemia. Troponins were negative x3. EKG: Sinus rhythm, nonspecific ST/T changes. CTA head/neck: No acute findings, no large vessel occlusion or aneurysm. CTA chest: No PE or acute cardiopulmonary findings. Brain MRI: No acute infarct or hemorrhage. Echocardiogram: Normal biventricular size and function, EF 60-65%, no significant valvular disease. Hospital Course: Neurology?was consulted for evaluation of transient neurological symptoms. No acute stroke was identified on imaging. Symptoms resolved without intervention. Patient already of Aspirin at home, switched to Plavix, continue lIpitor. Cardiology?was consulted for chest pain and history of atrial fibrillation. Cardiac enzymes remained negative, and EKGs were unchanged. Echocardiogram was normal. No evidence of acute coronary syndrome. She remained in sinus rhythm during hospitalization.Nuclear stress test no ischemic changes MARIA ANTONIA?was attributed to hypovolemia from diarrhea and resolved with IV fluids. Hyponatremia?was likely multifactorial (diarrhea, medications) and resolved with supportive care. Diabetes?was managed with home oral agents and sliding scale insulin as needed. continue home regiment Hypertension and hyperlipidemia?were managed with home medications. Atrial fibrillation:?No episodes documented during admission. She is not anticoagulated due to fall risk; cardiology was consulted and they deferred anticoagulation to primary cardiology Other:?She was monitored on telemetry, received DVT prophylaxis, and was evaluated by PT/OT. She remained hemodynamically stable, with no recurrence of chest pain or neurological symptoms. Renal function and electrolytes normalized prior to discharge. Discharge Condition: At baseline mentation, no focal neurological deficits, hemodynamically stable, ambulating with assistance. Discharge Diagnoses: Transient left-sided weakness and facial droop (TIA vs. CVA) Chest pain, non-cardiac Acute kidney injury, resolved Hyponatremia, resolved Type 2 diabetes mellitus, controlled Paroxysmal atrial fibrillation, in sinus rhythm Essential hypertension Hyperlipidemia History of NSTEMI and CAD History of CVA with residual dysarthria and balance disturbance PTSD, anxiety, depression Asthma, fibromyalgia, GERD, chronic kidney disease Discharge Medications: Continue home medications: Amlodipine 5 mg daily Propranolol 120 mg daily Plavix 75mg daily Atorvastatin 20 mg daily Metformin 500 mg BID (hold if contrast needed) Potassium citrate 15 mEq BID Ropinirole 2 mg BID Alprazolam 1 mg TID Cyclobenzaprine 10 mg TID PRN Ondansetron 4 mg Q8H PRN Valacyclovir 500 mg BID PRN Zolpidem 10 mg HS Fluticasone furoate inhaler daily Cyclosporine eye drops BID Lacosamide 100 mg daily Meclizine 25 mg TID PRN Trazodone 100 mg HS Pantoprazole 40 mg QHS Sucralfate 1 g TID Insulin aspart sliding scale PRN Discharge Instructions: Follow up with primary care, neurology, and cardiology Event monitor to be arranged as outpatient Continue home medications as above Monitor for recurrence of neurological symptoms, chest pain, or signs of dehydration Maintain adequate oral hydration Diabetic diet Defer anticoagulation decision to outpatient cardiology due to fall risk Follow-Up Appointments: Primary care: f/u with PCP in 3-5 days Cardiology: f/u with cardiology as instructed Neurology: f/u with neurology as instructed Time Spent with Patient Time attestation: Total time spent providing and/or coordinating discharge services: DS: Data Data Completed and Pending Labs on day of discharge: Labs from last 24 hours 08/30/25 08/30/25 08/29/25 07:29 06:28 19:52 WBC 5.3 RBC 3.79 L Hgb 11.5 L Hct 34.4 L MCV 90.8 MCH 30.3 MCHC 33.4 RDW 12.3 Plt Count 201 MPV 10.6 H Immature Gran % (Auto) 0.2 Neut % (Auto) 48.4 Lymph % (Auto) 41.4 [place] % (Auto) 8.0 Eos % (Auto) 1.1 Baso % (Auto) 0.9 Lymph # (Auto) 2.18 [place] # (Auto) 0.4 Eos # (Auto) 0.1 Baso # (Auto) 0.1 Abs Immat Gran (auto) 0.01 Absolute Neuts (auto) 2.6 Absolute Nucleated RBC 0.000 Nucleated RBC % 0.0 Sodium 131 L Potassium 4.1 Chloride 96 L Carbon Dioxide 31 H Anion Gap 4 BUN 8 Creatinine 0.76 Estim Creat Clear Calc 60 Estimated GFR > 60 Glucose 137 H POC Capillary Glucose 133 H 143 H Calcium 8.7 Magnesium 1.2 L Total Bilirubin 0.4 AST 38 H ALT 16 Alkaline Phosphatase 49 Total Protein 6.6 Albumin 3.9 08/29/25 16:32 WBC RBC Hgb Hct MCV MCH MCHC RDW Plt Count MPV Immature Gran % (Auto) Neut % (Auto) Lymph % (Auto) [place] % (Auto) Eos % (Auto) Baso % (Auto) Lymph # (Auto) [place] # (Auto) Eos # (Auto) Baso # (Auto) Abs Immat Gran (auto) Absolute Neuts (auto) Absolute Nucleated RBC Nucleated RBC % Sodium Potassium Chloride Carbon Dioxide Anion Gap BUN Creatinine Estim Creat Clear Calc Estimated GFR Glucose POC Capillary Glucose 141 H Calcium Magnesium Total Bilirubin AST ALT Alkaline Phosphatase Total Protein Albumin Discharge Plan Discharge Attending physician on discharge: Allie Swanson Consulting providers: Maurice Hendrickson; Osman Osborne; Chalo Silva; Allie Swanson Discharging Clinician: Allie Swanson Anticipated Discharge Date/Time: 08/30/25 15:56 Patient Disposition: Home Activity: as tolerated Diet: as tolerated and diabetic Patient Instructions: Antibiotic Form Patient Language: Yemeni Stand Alone Forms: General Discharge Information Follow-up/Referrals: Osman Osborne MD [Physician, Neurology] Referral Note: F/u with neurology as instructed PHYSICIAN,MANAGING PRINCIPAL [Primary Care Provider, Internal Medicine] Referral Note: F/u with PCP in 3-5 days Discharge Medications: New clopidogrel [Plavix] 75 mg tablet 75 mg PO DAILY 30 Days Qty: 30 1RF Continued albuterol sulfate 90 mcg/actuation HFA aerosol inhaler 2 inh INHALATION Q4-6H PRN (Reason: Shortness Of Breath Or Wheezing) alprazolam 1 mg tablet 1 mg PO TID ondansetron HCl 4 mg tablet 4 mg PO Q8H PRN (Reason: Nausea And Vomiting) valacyclovir 500 mg tablet 500 mg PO BID PRN (Reason: Outbreak) Rx Instructions: TAKE 1 TABLET BY MOUTH BID FOR 3 DAYS NEEDED FOR OUTBREAK cyclobenzaprine 10 mg tablet 10 mg PO TID PRN (Reason: Back Pain) metformin 500 mg tablet 500 mg PO BIDWM atorvastatin 20 mg tablet 20 mg PO HS ropinirole 1 mg tablet 2 mg PO BID Patient Comments: out of med amlodipine 5 mg tablet 5 mg PO DAILY potassium citrate 15 mEq tablet extended release 15 meq PO BIDWM Patient Comments: out of medication Arnuity Ellipta 1 inh inhalation DAILY trazodone 100 mg tablet 100 mg PO HS meclizine 25 mg Tablet 25 mg PO TID PRN (Reason: Dizziness) Patient Comments: out of medication cyclosporine [Restasis] 0.05 % Dropperette 1 drp EACH EYE BID lacosamide 100 mg tablet 100 mg PO DAILY fluticasone furoate [Arnuity Ellipta] 200 mcg/actuation Blister With Device 1 inh INHALATION DAILY pantoprazole 40 mg Tablet,Delayed Release (Dr/Ec) 40 mg PO QHS Qty: 30 0RF sucralfate [Carafate] 1 gram tablet 1 g PO TID Qty: 90 0RF zolpidem 12.5 mg tablet,ext release multiphase 12.5 mg PO HS omeprazole 20 mg capsule,delayed release(DR/EC) 20 mg PO DAILY Discontinued aspirin 81 mg tablet 81 mg PO DAILY Date of admission: 08/26/25 15:11 Primary Care Provider: PHYSICIAN,MANAGING PRINCIPAL Admitting Provider: Megan Valderrama Attending physician on admission: Megan Valderrama Condition: Serious
--- NOTE | 2025-08-30 16:16 | PC.NURSE ---
Patient states she is feeling unwell and dizzy and is unsteady on feet. RN did a set of vitals and called RN requesting patient be seen at bedside. states he is not in the building at this time. MD states the discharge should be cancelled and Physical therapy be ordered for the patient.
[2025-08-30] MEDS: POTASSIUM CITRATE 5 MEQ TAB CR 15 MEQ PO (17:10)
--- NOTE | 2025-08-30 17:35 | EST_ITS ---
Patient Info Name: Garima Perry Age: 60 years : 1965 Gender: Female Ht: 62 in Wt: 145 lbs BSA: 1.71 m2 HR: 52 bpm BP: 163 / 101 mmHg Exam Date: 08/30/2025 5:35 PM Patient Status: I Admit Date: 08/26/2025 Exam Type: CA stress karena w NM A regadenoson stress test was performed. Staff Referring Physician: Allie Swanson Attending Provider: Megan Valderrama MD Exercise Technologist: Angelique Alcantara Exercise Physician: Kilo Salvaodr DO Summary 1. 1. Negative lexiscan stress test for ischemic ST changes by ECG criteria. 2. 2. Baseline hypertension. 3. 3. Nuclear scan to follow and will be reported separately. Please correlate with it. 4. 4. Patient informed of the above results. Protocol: Lexiscan Stress ECG Details Stage: REST Duration (min): 1 min : 58 sec HR (bpm): 54 SBP (mmHg): 163 DBP (mmHg): 101 Stage: REST Duration (min): 8 min : 41 sec HR (bpm): 56 SBP (mmHg): 163 DBP (mmHg): 101 Stage: STAGE 1 Duration (min): 1 min : 0 sec HR (bpm): 78 SBP (mmHg): 163 DBP (mmHg): 101 Stage: RECOVERY Duration (min): 1 min : 0 sec HR (bpm): 86 SBP (mmHg): 130 DBP (mmHg): 70 Stage: RECOVERY Duration (min): 2 min : 0 sec HR (bpm): 85 SBP (mmHg): 130 DBP (mmHg): 70 Stage: RECOVERY Duration (min): 3 min : 0 sec HR (bpm): 84 SBP (mmHg): 133 DBP (mmHg): 76 Stage: RECOVERY Duration (min): 3 min : 23 sec HR (bpm): 83 SBP (mmHg): 133 DBP (mmHg): 76 Rest HR: 56 bpm Peak HR: 86 bpm Rest Sys BP: 163 mmHg Peak Sys BP: 133 mmHg Max Pred HR: 159 bpm % Max Pred HR: 54 % Target HR: 135 bpm Max RPP: 11,438 bpm*mmHg Termination Reason: Completed protocol Cardiac Symptoms: Chest pain, Shortness of breath Total Time: 1 min : 0 sec Rest Cunningham BP: 101 mmHg Peak Cunningham BP: 76 mmHg Total Dose: 0.4 mg Resting ECG Sinus bradycardia. Stress ECG No ST changes. Arrhythmias None. Report Signatures
[2025-08-30] MEDS: ZOLPIDEM TARTRATE (*CRX) 5 MG TABLET 10 MG PO (21:00)
[2025-08-30] MEDS: ATORVASTATIN 20 MG TABLET PO (21:00)
[2025-08-30] MEDS: PANTOPRAZOLE 40 MG TABLET PO (21:01)
[2025-08-31] VITALS: PULSE 53
[2025-08-31 04:20] VITALS: BP 111/70; PULSE 63; RESP 16; TEMP 36.5; O2SAT 95
[2025-08-31] MEDS: IBUPROFEN 400 MG TABLET PO (05:01)
[2025-08-31] MEDS: FLUTICASONE PROP 220 MCG (*SP) 12 GM INHALER 2 PUFF INHALATION (07:17)
[2025-08-31 07:21] VITALS: PULSE 62; RESP 20; O2SAT 95
[2025-08-31 08:00] VITALS: PULSE 60
[2025-08-31] MEDS: CYCLOBENZAPRINE HCL 10 MG TABLET PO ×2 (09:11→16:57)
[2025-08-31] MEDS: SUCRALFATE 1 GM TABLET PO ×3 (09:11→16:57)
[2025-08-31] MEDS: POTASSIUM CITRATE 5 MEQ TAB CR 15 MEQ PO ×2 (09:11→16:57)
[2025-08-31] MEDS: PROPRANOLOL HCL ER 60 MG CAPSULE 120 MG PO (09:11)
[2025-08-31] MEDS: ALPRAZolam (*CRX) 0.5 MG TABLET 1 MG PO ×3 (09:11→16:57)
[2025-08-31] MEDS: cycloSPORINE 0.4 ML OPHTH SOLUTION 1 DROP EACH EYE (09:12)
[2025-08-31] MEDS: ASPIRIN 81 MG ENTERIC TABLET PO (09:12)
[2025-08-31 10:30] LABS: Anion Gap 6 mmol/L (4-12); Blood Urea Nitrogen 10 mg/dL (7-17); Calcium 9.3 mg/dL (8.4-10.2); Carbon Dioxide 30 mmol/L (22-30); Chloride 95 mmol/L (98-107); Estimated CRCL calculation 56 ml/min; Estimated Glomerular Filt Rate > 60; Glucose 128 mg/dL (65-110); Magnesium 1.7 mg/dL (1.6-2.3); Potassium 4.2 mmol/L (3.4-5.0); Sodium 131 mmol/L (137-145)
[2025-08-31 12:00] VITALS: PULSE 53
[2025-08-31] MEDS: LACOSAMIDE (*CRX) 100 MG TABLET PO (13:04)
[2025-08-31 14:00] VITALS: BP 134/87; PULSE 58; RESP 14; TEMP 36.4; O2SAT 97
== END 2025-08-31 18:00 | disposition home or self-care (01) ==
LOC: ANHED 11:55 → ANHIMU 16:43 → ANH3MEDSUR 08-28 11:39 → ANHIMU 09-04 07:21
PROVIDERS: Internal Medicine; Student in an Organized Health Care Education/Training Program; Admitting Provider Family Medicine; Emergency Provider Emergency Medicine; Visit Provider Internal Medicine
DX: G45.9 Transient cerebral ischemic attack, unspecified (principal); R29.898 Other symptoms and signs involving the musculoskeletal system; E11.9 Type 2 diabetes mellitus without complications; K21.9 Gastro-esophageal reflux disease without esophagitis; I13.10 Hypertensive heart and chronic kidney disease without heart failure, with stage 1 through stage 4 chronic kidney disease, or unspecified chronic kidney disease; N18.9 Chronic kidney disease, unspecified; N17.9 Acute kidney failure, unspecified; G47.30 Sleep apnea, unspecified; J43.9 Emphysema, unspecified; E78.5 Hyperlipidemia, unspecified; I48.0 Paroxysmal atrial fibrillation; E87.1 Hypo-osmolality and hyponatremia; I69.398 Other sequelae of cerebral infarction; I69.322 Dysarthria following cerebral infarction; M79.7 Fibromyalgia; F43.10 Post-traumatic stress disorder, unspecified; F41.8 Other specified anxiety disorders; I25.2 Old myocardial infarction; J45.909 Unspecified asthma, uncomplicated; I25.110 Atherosclerotic heart disease of native coronary artery with unstable angina pectoris; Z79.84 Long term (current) use of oral hypoglycemic drugs; Z79.51 Long term (current) use of inhaled steroids; Z79.621 Long term (current) use of calcineurin inhibitor; Z79.82 Long term (current) use of aspirin; Z86.19 Personal history of other infectious and parasitic diseases; Z87.442 Personal history of urinary calculi; Z86.718 Personal history of other venous thrombosis and embolism; Z86.79 Personal history of other diseases of the circulatory system; Z90.49 Acquired absence of other specified parts of digestive tract; Z59.01 Sheltered homelessness
CPT/HCPCS: 36415; 70496; 70498; 70553; 71275; 78452; 80048; 80053; 80061; 80307; 81001; 82570; 82948; 83036; 83690; 83735; 83930; 83935; 84156; 84300; 84484; 85025; 85027; 85055; 85610; 85730; 87086; 93005; 93017; 94640; 96361; 96365; 96366; 96374; 96375; 96376; 97161; 99285; A9270; A9502; A9577; C8929; G0378; J1644; J2405; J2785; J3475; J7030; J7120; Q9957; Q9967